=== PATIENT | male | born 1930 | race Caucasian/White ===

== ENCOUNTER 2016-09-18 12:17 | Inpatient (IN) | payer OTHER, BC ==
[~2016-09-18] VITALS: Ht 167.6 cm; Wt 61.9 kg
[~2016-09-18 12:17] MED LIST: ADVAIR DISKU1 INH; ALBUTEROL SUL0.083 % IN; ALTACE2.5 MG PO; ATORVASTATIN CA40 MG PO; AZITHROMYCIN250 MG PO; COREG3.125 MG PO; COUMADIN1 MG PO; COUMADIN2.5 MG PO; COUMADIN3 MG PO; DALIRESP500 MCG PO; EPIPEN 2-PAK0.3 MG; FLUOXETINE HCL10 M1 PO; FUROSEMIDE20 MG PO; KEFLEX500 MG PO; KLOR-CON M1010 MEQ PO; LATANOPROST0.005 % OP; LISINOPRIL10 MG PO; LOTRISONE TOP; LOVENOX40 MG/0.4 SC; MEGAKRILL; METFORMIN HCL1000 MG PO; MIRAPEX0.125 MG PO; MORPHINE SULFAT15 MG PO; MULTIVITAMIN1 TAB PO; NEURONTIN100 MG PO; NEURONTIN300 MG PO; NORCO1 TA1 PO; PROAIR HFA IN; PROBIOTI1 PO; PROTONIX40 MG PO; SPIRIVA18 MCG INH; TYLENOL325 MG PO; VOLTAREN1 % TOP; WELCHOL625 MG PO; [UNRECOGNIZED DRUG - OTHER]; [UNRECOGNIZED DRUG - OTHER] PO
--- NOTE | 2016-09-18 13:11 | DIAGNOSTIC IMAGING REPORT ---
PROCEDURE: XR CHEST 1 VIEW INDICATION: CHEST PAIN TECHNIQUE: Portable AP view 12:54 p.m. COMPARISON: Chest 05/22/2015 and 11/17/2014 FINDINGS: No right upper lobe and right lower lobe infiltrates. Extensive scarring in the left lung base is unchanged. Stable blunting of the left costophrenic angle. Median sternotomy, CABG and valvuloplasty. Heart size and mediastinum are normal. Prominence of the pulmonary arteries. Mild chronic lower thoracic spine compression fractures with moderate degenerative changes. Cholecystectomy. IMPRESSION: 1. New right upper lobe and right lower lobe infiltrates. 2. Extensive pulmonary parenchymal scarring 3. CABG and valvuloplasty
--- NOTE | 2016-09-18 15:21 | ED CLINICAL REPORT ---
Clinical Report - Physicians/Mid Levels [facility] [address] [place] [address] 09/18/2016 12:17 Patient: HIPOLITO BAILEY *This is a preliminary document and is subject to change Time Seen: 12:29; initial patient contact. Arrived- By ambulance. Historian- patient. LABS, X-RAYS, AND EKG Chest X-ray: Patchy infiltrate in the right upper lobe and right lower lobe. Consistent with pneumonia. Views: AP. Technique: good. The X-rays were independently viewed by me and interpreted contemporaneously by me. A comparison with prior films reveals that the findings have worsened. Interpretation time: 14:09. Laboratory Tests: CBC w Diff: (CHARLENE: 09/18/2016 12:55) ( MsgRcvd 09/18/2016 13:04) Final results Test Result Flag Units (Reference) WHITE BLOOD COUNT 8.4 K/uL (4.5-11.5) RED BLOOD COUNT 4.21 L M/uL (4.50-5.90) HEMOGLOBIN 13.5 gm/dL (13.5-17.5) HEMATOCRIT 40.0 L % (41.0-53.0) MEAN CELL VOLUME 95 fL (80-100) MEAN CORPUSCULAR HGB 32 pg (26-34) MEAN CORPUSCULAR HGB CONC 34 g/dL (31-37) RED CELL DISTRIBUTION WIDTH 14.6 % (11.6-14.8) PLATELET COUNT 192 K/uL (150-400) NEUTROPHIL % 69.6 % (50-75) LYMPH % 16.3 L % (25-40) MONO % 6.7 % (3-14) EOSINOPHIL % 6.9 H % (0-4) BASOPHIL % 0.5 % (0-2) PT with INR: (CHARLENE: 09/18/2016 12:55) ( MsgRcvd 09/18/2016 13:13) Final results Test Result Flag Units (Reference) INR 2.1 H (0.8-1.2) Low Intensity Therapy: INR 1.5-2.0 PT range 18.5-23.1Mod.Intensity Therapy: INR 2.0-3.0 PT range 23.1-31.5High Intensity Therapy: INR 2.5-3.5 PT range 27.4-35.5High Intensity Therapy 2: INR 3.0-4.0 PT range 31.5-39.3 APTT 38 H SECONDS (24-34) . PROGRESS AND PROCEDURES Discussed case with patient's primary care provider, (call returned 15:00 Dr. Vila). Reviewed test results and need for additional work-up. Agreed upon decision to admit. Health care provider will see patient in hospital. CLINICAL IMPRESSION Bacterial pneumonia with hypoxemia. Empiric antibiotics given in the ED. Miguelito Valencia Dr.
--- NOTE | 2016-09-18 15:21 | ED CLINICAL REPORT ---
Clinical Report - Physicians/Mid Levels [facility] [address] [place] [address] 09/18/2016 12:17 Patient: HIPOLITO BAILEY *This is a preliminary document and is subject to change Time Seen: 12:29; initial patient contact. Arrived- By ambulance. Historian- patient. LABS, X-RAYS, AND EKG Chest X-ray: Patchy infiltrate in the right upper lobe and right lower lobe. Consistent with pneumonia. Views: AP. Technique: good. The X-rays were independently viewed by me and interpreted contemporaneously by me. A comparison with prior films reveals that the findings have worsened. Interpretation time: 14:09. Laboratory Tests: CBC w Diff: (CHARLENE: 09/18/2016 12:55) ( MsgRcvd 09/18/2016 13:04) Final results Test Result Flag Units (Reference) WHITE BLOOD COUNT 8.4 K/uL (4.5-11.5) RED BLOOD COUNT 4.21 L M/uL (4.50-5.90) HEMOGLOBIN 13.5 gm/dL (13.5-17.5) HEMATOCRIT 40.0 L % (41.0-53.0) MEAN CELL VOLUME 95 fL (80-100) MEAN CORPUSCULAR HGB 32 pg (26-34) MEAN CORPUSCULAR HGB CONC 34 g/dL (31-37) RED CELL DISTRIBUTION WIDTH 14.6 % (11.6-14.8) PLATELET COUNT 192 K/uL (150-400) NEUTROPHIL % 69.6 % (50-75) LYMPH % 16.3 L % (25-40) MONO % 6.7 % (3-14) EOSINOPHIL % 6.9 H % (0-4) BASOPHIL % 0.5 % (0-2) PT with INR: (CHARLENE: 09/18/2016 12:55) ( MsgRcvd 09/18/2016 13:13) Final results Test Result Flag Units (Reference) INR 2.1 H (0.8-1.2) Low Intensity Therapy: INR 1.5-2.0 PT range 18.5-23.1Mod.Intensity Therapy: INR 2.0-3.0 PT range 23.1-31.5High Intensity Therapy: INR 2.5-3.5 PT range 27.4-35.5High Intensity Therapy 2: INR 3.0-4.0 PT range 31.5-39.3 APTT 38 H SECONDS (24-34) . PROGRESS AND PROCEDURES Discussed case with patient's primary care provider, (call returned 15:00 Dr. Vila). Reviewed test results and need for additional work-up. Agreed upon decision to admit. Health care provider will see patient in hospital. CLINICAL IMPRESSION Bacterial pneumonia with hypoxemia. Empiric antibiotics given in the ED. Miguelito Valencia Dr.
--- NOTE | 2016-09-18 15:21 | ED NURSING NOTES ---
Clinical Report - Nurses [facility] [address] [place] [address] 09/18/2016 12:17 Patient: HIPOLITO BAILEY TRIAGE Triage time 1217 PM. Acuity: LEVEL 2. Chief Complaint: CHEST PAIN and DISCOMFORT. Alert. No acute distress. SEPSIS SCREEN: Sepsis Screen. Negative (no infection suspected/documented). ROCIO COMA SCORE: Rocio Coma Scale: 15- eyes open spontaneously (4); best verbal response- oriented x 4 (5); best motor response- obeys commands (6). --12:38 Ade Magallanes R.N. 12:22 09/18/16. BP: 81/53 taken on the left arm, via an automated monitor, while lying. HR: 80. RR: 20. O2 saturation: 89%. O2 started via nasal cannula at 5 liters/minute. Temp: 97.4 F (oral). Pain level now: 10/20. --12:38 Ade Magallanes R.N. Weight: 59.4 kg stated. Height/Length: 66 inches Per Patient. BMI: 21.1. --12:27 Ade Magallanes R.N. Medications Advair Diskus Inhalation 1 puff, 2x a day. Atorvastatin Calcium Oral 40 mg, daily. Coreg Oral 3.125 mg, 2x a day. Coumadin Oral MWF and 2.5mg TTHSS, at bedtime. Daliresp Oral (Tablet 500 mcg) 1 tablet, daily. Diabethiderm ext cream, as needed. EpiPen 2-Henry Injection. Furosemide Oral 20 mg, daily. Gabapentin Oral 100 mg, 1-3 tabs, 3x a day as needed, nerve pain. Latanoprost Ophthalmic 1 drop OU . Lisinopril Oral 5 mg, daily. --12:26 Ade Magallanes R.N. Magnesium Oral 1 cap, 64 mg, 2x a day. Jad krill 30mg. MetFORMIN HCl Oral 1000 mg , 2x a day. Mirapex Oral 0.125 mg, at bedtime. Multivitamin Oral (with vit K 2 tab daily for coumadin up/down). Potassium Oral 10 meq BID. ProAir HFA Inhalation 2 puffs, as needed. Protonix Oral 40 mg, daily. Spiriva HandiHaler Inhalation (Capsule 18 mcg) 1 capsule, daily. Tylenol Oral (Tablet 325 mg) 1 tablet, as needed (every 4 hours). Voltaren Transdermal to feet. WelChol Oral 625 mg, 2 tabs TID. --12:26 Ade Magallanes R.N. The following entry was struck by Ade Magallanes R.N., 13:02 (09/18/16) Reason - other. <<STRICKEN ENTRY-- [place] 5-325 q6hrs prn pain. --12:26 Ade Magallanes R.N. --END STRIKE>> The following entry was struck and corrected by Ade Magallanes R.N., 13:01 (09/18/16) Reason for correction - other(correction). <<STRICKEN ENTRY-- Coumadin Oral 2mg except on thursday. thursday 2.5mg, at bedtime. --12:26 Ade Magallanes R.N. --END STRIKE>> The following entry was struck and corrected by Ade Magallanes R.N., 12:59 (09/18/16) Reason for correction - other(correction). <<STRICKEN ENTRY-- Lisinopril Oral 20 mg, daily. --12:26 Ade Magallanes R.N. --END STRIKE>> The following entry was struck by Ade Magallanes R.N., 12:58 (09/18/16) Reason - other. <<STRICKEN ENTRY-- morphine 15 mg 1-2 tabs , 3x a day (upt to 3 times a day prn). --12:26 Ade Magallanes R.N. --END STRIKE>>. Medication/allergy information source: the patient and patient's imported external medical record. --12:38 Ade Magallanes R.N. Allergies No Known Drug Allergy. --12:26 Ade Magallanes R.N. History Arrived by EMS. Historian: patient. Primary physician (DR. VILA). ( Pt brought over by EMS from Dr. Vila office with CP and Hypoxia, pt states initiated last week but states that CP comes and goes, it ususally goes away when I put my O2 up.). The patient has had difficulty breathing. No sweating episodes, nausea, vomiting, fever or cough. Treatment [employer]: None. PAST MEDICAL HX: Immunizations: up-to-date. SOCIAL HX: Never smoker. No alcohol use or drug use. No infectious disease exposure. ABUSE ASSESSMENT: No report of abuse. SELF HARM ASSESSMENT: A self harm assessment was performed. The patient answered "no" to the question "Do you have thoughts of harming or killing yourself?" and "Have you recently had thoughts about harming or killing others?". FALL RISK ASSESSMENT: Fall risk assessment completed. No fall risk identified. NUTRITIONAL RISK ASSESSMENT: The nutritional risk assessment revealed no deficiencies. FUNCTIONAL ASSESSMENT: Functional assessment: no impairments noted. LEARNING NEEDS ASSESSMENT: The learning needs assessment revealed no barriers. SKIN INTEGRITY ASSESSMENT: Skin integrity risk assessment completed. No skin integrity risk identified. --12:38 Ade Magallanes R.N. PROBLEMS: Post-Op Complications. Peripheral Neuropathy. Bradycardia. Carotid bruit. Asbestosis. Obstructive Sleep Apnea. Somnolence. Hyperlipidemia. Aortic valve disorder. Cardiomyopathy. Back Pain. Diabetes Mellitus Type 2. Neuropathy. Syncope. Actinic keratosis. Inguinal hernia. Shoulder pain. Hip pain. Lung Disease. Hemoptysis. Bronchitis. Chest Wall Pain. Hypercholesterolemia. Tetanus Status. Contusion. Near Syncope. Pneumonia. Vomiting. Abdominal Pain. Gastroesophageal Reflux. Hematoma. Tonsillitis. Lipids abnormal. COPD - Chronic Obstructive Pulmonary Disease. Cancer. Myocardial Infarction. Vertigo. Chest Pain. Heart Disease. Sleep Apnea. Hypertension. Gastroesophageal Reflux Disease. Immunizations. --12:26 Ade Magallanes R.N. Diabetes Mellitus [RuleOut]. Lower Extremity Pain [RuleOut]. --12:26 Ade Magallanes R.N. ADDITIONAL SURGERIES: Aortic Valve Replacement. Bowel Surgery. Coronary Angioplasty. Coronary Artery Bypass Graft. Hernia Repair. Prostatectomy. Valve Replacement. --12:26 Ade Magallanes R.N. Interventions ID band on patient. --12:38 Ade Magallanes R.N. PHYSICAL ASSESSMENT To room via stretcher. GENERAL / NEURO / PSYCH: Alert. Oriented X 4. Appears in no acute distress. HEENT: Mucous membranes are pink. RESPIRATORY: Respirations not labored. Decreased breath sounds in the left lung base posteriorly. Breath sounds within normal limits. CVS: Cardiac rhythm: normal sinus rhythm; occasional PVCs. Pulses within normal limits. Capillary refill is greater than 2 seconds. GI / : Abdomen soft and nontender. EXTREMITIES: No lower extremity edema. SKIN: Skin is warm. Skin is cool. --12:40 Ade Magallanes R.N. NURSING PROGRESS NOTES Cardiac rhythm: normal sinus rhythm. The initial plan of care for this patient has been created This plan of care was discussed with the patient. Oxygen administered by nasal cannula at 4 liters. cardiac monitor, pulse oximeter and NIBP monitor placed on patient. Patient gowned and gowned. Warming measures: blanket applied. Reassurance given. Two patient identifiers checked. Call light placed in reach. Side rails up x 1. Bed placed in lowest position. Brakes of bed on. --12:44 Ade Magallanes R.N. 12:42 09/18/16. BP: 92/57. HR: 68. RR: 16. O2 saturation: 92%. O2 started via nasal cannula at 4 liters/minute. Pain level now: 09/19. --12:44 Ade Magallanes R.N. 12:21 09/18/2016 Site #1 accessed indwelling PIV line in the right antecubital space using a 20g needle (placed by EMS). --12:46 Ade Magallanes R.N. --12:57 Ade Magallanes R.N. 13:00 09/18/16. BP: 106/55 (small adult cuff) taken on the left arm, via an automated monitor, while sitting. HR: 59. RR: 24. O2 saturation: 95%. O2 started via nasal cannula at 4 liters/minute. Pain level now: 08/22. --13:26 Ade Magallanes R.N. Cardiac rhythm: normal sinus rhythm; 1st degree AV block; occasional unifocal PVCs. cardiac monitor, pulse oximeter and NIBP monitor placed on patient. Reassurance given. The patient is calm and sleeping. Overall patient status is improved- he states feels better. RESPIRATORY: Denies difficulty breathing. Call light placed in reach. Side rails up x 2. --13:26 Ade Magallanes R.N. Cardiac rhythm: normal sinus rhythm. cardiac monitor, pulse oximeter and NIBP monitor placed on patient. Reassurance given. The patient is calm and sleeping. Overall patient status is improved- he states feels better. RESPIRATORY: Denies difficulty breathing. CVS: Denies chest pain. SKIN: Skin is warm. Skin color within normal limits. Patient identifiers checked. --14:28 Ade Magallanes R.N. 14:00 09/18/16. BP: 112/67 (small adult cuff) taken on the left arm, via an automated monitor, while sitting. HR: 74. RR: 23. O2 saturation: 94%. Pain level now: 08/22. --14:28 Ade Magallanes R.N. 15:29 09/18/2016 Started 500 mg of Levofloxacin IVPB in bag #1 100 mL; at 500 mg/hr over 1 hour(s) via site #1 via IV pump. Allergies verified and confirmed 5 rights. IV patency established. IV site checked: no pain, redness, or swelling. IV flushed thoroughly pre- and post-medication administration. --15:29 Ade Magallanes R.N. Cardiac rhythm: normal sinus rhythm. Oxygen administered by nasal cannula at 4 liters. cardiac monitor, pulse oximeter and NIBP monitor placed on patient. Reassurance given. The patient is calm. Overall patient status is improved- he states feels better. RESPIRATORY: Denies difficulty breathing. CVS: Denies chest pain. Two patient identifiers checked. Call light placed in reach. Side rails up x 1. --15:32 Ade Magallanes R.N. 15:00 09/18/16. BP: 102/54. HR: 58. RR: 21. O2 saturation: 100%. O2 started via nasal cannula at 4 liters/minute. Temp: 98.2 F (oral). Pain level now: 010. --15:32 Ade Magallanes R.N. 15:55 09/18/16. BP: 102/60. HR: 71. RR: 20. O2 saturation: 94%. O2 started via nasal cannula at 4 liters/minute. Temp: 97.4 F (oral). Pain level now: 0. --15:57 Ade Magallanes R.N. Cardiac rhythm: normal sinus rhythm; 1st degree AV block. cardiac monitor, pulse oximeter and NIBP monitor placed on patient. Reassurance given. Call light placed in reach. Side rails up x 1. Bed placed in lowest position. Brakes of bed on. --15:57 Ade Magallanes R.N. 16:22 09/18/2016 Levofloxacin IVPB Discontinued: bag #1 completed upon admission. Total amount infused: 50 mL. IV patency established. IV site checked: no pain, redness, or swelling. IV flushed thoroughly. --16:37 Ade Magallanes R.N. 16:37 09/18/2016 Magnesium Sulfate (Magnesium Sulfate in D5W) IVP 2 gm given over 2 hour(s) via site #1. Allergies verified and confirmed 5 rights. IV patency established. IV site checked: no pain, redness, or swelling. IV flushed thoroughly pre- and post-medication administration. IVP given by RN. --16:37 Ade Magallanes R.N. 17:35 09/18/2016 Magnesium Sulfate IVP Response: no adverse reaction (transfered to CCU). --17:50 Ade Magallanes R.N. late entry - 16:00 PM. Cardiac rhythm: sinus bradycardia; 1st degree AV block. cardiac monitor, pulse oximeter and NIBP monitor placed on patient. Patient waiting for admit orders. --17:52 Ade Magallanes R.N. 16:01 09/18/16. BP: 115/52. HR: 59. RR: 21. O2 saturation: 95%. O2 started via nasal cannula at 4 liters/minute. Temp: 98.1 F (oral). Pain level now: 07/22. --17:52 Ade Magallanes R.N. late entry - 17:00 PM. Cardiac rhythm: sinus bradycardia; 1st degree AV block. Oxygen administered by nasal cannula at 4 liters. cardiac monitor, pulse oximeter and NIBP monitor placed on patient. Reassurance given. Reassessment after medication administered. He is calm and has had no adverse reaction. Overall patient status is improved- he states feels better. RESPIRATORY: Denies difficulty breathing. CVS: Denies chest pain. --17:53 Ade Magallanes R.N. 17:00 09/18/16. BP: 107/52 (small adult cuff) taken on the left arm, via an automated monitor, while lying. HR: 59 (regular). RR: 21. O2 saturation: 95% on nasal cannula at 4 liters/minute. Temp: 94.7 F (oral). Pain level now: 07/22. --17:53 Ade Magallanes R.N. DISPOSITION / DISCHARGE 17:29 09/18/2016 Site #1 reassessed; patent, infusing well and no signs of infection or infiltration. Good blood return present. --17:54 Ade Magallanes R.N. Cardiac rhythm: normal sinus rhythm; 1st degree AV block. Departure time: 1735 PM. The goals identified in the patient's plan of care were met. Admitted to the Critical Care Unit. Report was given to a nurse via a phone call. Report included patient's care, treatment, medications, reviewed medication reconcilliation, and condition (including any recent changes or anticipated changes). All questions were answered. Report was acknowledged and care was transferred. (NAZANIN [place]). Spouse notified of admission. ( Pt transferred to CCU safely, VSS, IV site intact. Mag infusing as ordered). Patient's personal items include: shirt, pants, coat, socks, shoes, hat, upper denture and lower denture and jewelry; items were placed in belongings bag, given to the patient and transported with the patient. --17:57 Ade Magallanes R.N. 17:30 09/18/16. BP: 115/52 (small adult cuff) taken on the left arm, while lying. HR: 59. RR: 21. O2 saturation: 95% on nasal cannula at 4 liters/minute. Temp: 97.4 F (oral). Pain level now: 07/22. --17:57 Ade Magallanes R.N. Locked/Released at 09/18/2016 17:58 by Ade Magallanes R.N.
--- NOTE | 2016-09-18 15:22 | ED ORDER SUMMARY ---
..... Patient: HIPOLITO BAILEY OrderSheet [facility] VisitID: [id number] [place] [address] 86y, M Registration Date/Time: 09/18/2016 ORDER SHEET Weight: 59.4 kg (stated) Allergies: No Known Drug Allergy GENERAL ORDERS: Fuel Injection Servicer (Continuous) (12:45 09/18/2016 EHassan R.N. per protocol) (12:53 EHassan R.N.) Chest 1V Urgent (12:45 09/18/2016 EHassan R.N. per protocol) (Ack 12:50 TBergley) (12:53 EHassan R.N.) Cardiac Panel Stat (12:46 09/18/2016 EHassan R.N. per protocol) (Ack 12:50 TBergley) (12:53 EHassan R.N.) Oxygen (2 L/min) (NC) (12:46 09/18/2016 EHassan R.N. per protocol) (12:53 EHassan R.N.) Pulse oximeter (12:46 09/18/2016 EHassan R.N. per protocol) (12:53 EHassan R.N.) EKG - ER Stat (12:46 09/18/2016 EHassan R.N. per protocol) (12:47 LTapper) Vitals (12:46 09/18/2016 EHassan R.N. per protocol) (Ack 12:50 TBergley) (12:53 EHassan R.N.) Cardiac Panel Stat (12:54 09/18/2016 EHassan R.N. per protocol) (12:55 EHassan R.N.) PT with INR Urgent (12:54 09/18/2016 EHassan R.N. per protocol) (12:55 EHassan R.N.) PTT Urgent (12:54 09/18/2016 EHassan R.N. per protocol) (12:55 EHassan R.N.) CMP Urgent (12:54 09/18/2016 EHassan R.N. per protocol) (12:55 EHassan R.N.) CBC w Diff Urgent (12:54 09/18/2016 EHassan R.N. per protocol) (12:55 EHassan R.N.) Blood Culture (No) (N/A) Urgent (14:07 09/18/2016 Liz Ro) (Ack 14:34 LTapper) (14:34 EHassan R.N.) Lactic Acid for Sepsis Protocol Urgent (14:07 09/18/2016 Liz Ro) (Ack 14:34 LTapper) (14:34 EHassan R.N.) PCT (Procalcitonin) Urgent (14:07 09/18/2016 Liz Ro) (Ack 14:34 LTapper) (14:34 EHassan R.N.) MEDICATION ORDERS: IV FLUIDS: IV Saline Lock (12:46 09/18/2016 EHassan R.N. per protocol) (12:46 EHassan R.N.) Levofloxacin IV 500 mg/100mL (NOW) (15:20 09/18/2016 Liz Ro) Magnesium Sulfate IV 2 gm/50mL (HIGH ALERT MEDICATION, NOW, over 2 hours) (15:20 09/18/2016 Liz Ro) ORDER SHEET NOTES: This document has not been locked and should not be saved in the medical record.
--- NOTE | 2016-09-18 15:22 | ED ORDER SUMMARY ---
..... Patient: HIPOLITO BAILEY OrderSheet [facility] VisitID: [id number] [place] [address] 86y, M Registration Date/Time: 09/18/2016 ORDER SHEET Weight: 59.4 kg (stated) Allergies: No Known Drug Allergy GENERAL ORDERS: Clicking Machine Operator (Continuous) (12:45 09/18/2016 EHassan R.N. per protocol) (12:53 EHassan R.N.) Chest 1V Urgent (12:45 09/18/2016 EHassan R.N. per protocol) (Ack 12:50 TBergley) (12:53 EHassan R.N.) Cardiac Panel Stat (12:46 09/18/2016 EHassan R.N. per protocol) (Ack 12:50 TBergley) (12:53 EHassan R.N.) Oxygen (2 L/min) (NC) (12:46 09/18/2016 EHassan R.N. per protocol) (12:53 EHassan R.N.) Pulse oximeter (12:46 09/18/2016 EHassan R.N. per protocol) (12:53 EHassan R.N.) EKG - ER Stat (12:46 09/18/2016 EHassan R.N. per protocol) (12:47 LTapper) Vitals (12:46 09/18/2016 EHassan R.N. per protocol) (Ack 12:50 TBergley) (12:53 EHassan R.N.) Cardiac Panel Stat (12:54 09/18/2016 EHassan R.N. per protocol) (12:55 EHassan R.N.) PT with INR Urgent (12:54 09/18/2016 EHassan R.N. per protocol) (12:55 EHassan R.N.) PTT Urgent (12:54 09/18/2016 EHassan R.N. per protocol) (12:55 EHassan R.N.) CMP Urgent (12:54 09/18/2016 EHassan R.N. per protocol) (12:55 EHassan R.N.) CBC w Diff Urgent (12:54 09/18/2016 EHassan R.N. per protocol) (12:55 EHassan R.N.) Blood Culture (No) (N/A) Urgent (14:07 09/18/2016 Liz Ro) (Ack 14:34 LTapper) (14:34 EHassan R.N.) Lactic Acid for Sepsis Protocol Urgent (14:07 09/18/2016 Liz Ro) (Ack 14:34 LTapper) (14:34 EHassan R.N.) PCT (Procalcitonin) Urgent (14:07 09/18/2016 Liz Ro) (Ack 14:34 LTapper) (14:34 EHassan R.N.) MEDICATION ORDERS: IV FLUIDS: IV Saline Lock (12:46 09/18/2016 EHassan R.N. per protocol) (12:46 EHassan R.N.) Levofloxacin IV 500 mg/100mL (NOW) (15:20 09/18/2016 Liz Ro) Magnesium Sulfate IV 2 gm/50mL (HIGH ALERT MEDICATION, NOW, over 2 hours) (15:20 09/18/2016 Liz Ro) ORDER SHEET NOTES: This document has not been locked and should not be saved in the medical record.
[2016-09-18 17:47] VITALS: BP 114/49
--- NOTE | 2016-09-18 18:45 | ED DISCHARGE INSTRUCTIONS ---
Patient: HIPOLITO BAILEY General Instructions [facility] VisitID: [id number] [address] [place] [address] 86y, M Registration Date/Time: 09/18/2016 Moderate hypomagnesemia. Bacterial pneumonia with hypoxemia. Empiric antibiotics given in the ED. INSTRUCTIONS Follow-up: Blood pressure screening was not performed during this visit because the patient has an active diagnosis of hypertension. The patient was admitted and blood pressure will be managed during the admission. (Electronically signed by Miguelito Valencia Dr. 09/18/2016 18:45)
--- NOTE | 2016-09-18 18:45 | ED DISCHARGE INSTRUCTIONS ---
Patient: HIPOLITO BAILEY General Instructions [facility] VisitID: [id number] [address] [place] [place] [place] [address] 86y, M Registration Date/Time: 09/18/2016 Moderate hypomagnesemia. Bacterial pneumonia with hypoxemia. Empiric antibiotics given in the ED. INSTRUCTIONS Follow-up: Blood pressure screening was not performed during this visit because the patient has an active diagnosis of hypertension. The patient was admitted and blood pressure will be managed during the admission. (Electronically signed by Miguelito Valencia Dr. 09/18/2016 18:45)
--- NOTE | 2016-09-18 18:45 | ED MED RECONCILIATION SUMMARY ---
Patient: HIPOLITO BAILEY Medication Reconciliation Report [facility] VisitID: [id number] [place] [address] 86y, M Registration Date/Time: 09/18/2016 Weight: 59.4 kg Height/Length: 66 in. BMI: 21.1 ALLERGIES: No Known Drug Allergy The patient's Home Medications are listed below: THE FOLLOWING MEDICATIONS NEED TO BE RECONCILED: Advair Diskus Inhalation 1 puff, 2x a day Atorvastatin Calcium Oral 40 mg, daily Coreg Oral 3.125 mg, 2x a day Coumadin Oral MWF and 2.5mg TTHSS, at bedtime Daliresp Oral (500 mcg) 1 tablet, daily Diabethiderm ext cream EpiPen 2-Henry Injection Furosemide Oral 20 mg, daily Gabapentin Oral 100 mg, 1-3 tabs, 3x a day, nerve pain Latanoprost Ophthalmic 1 drop OU Lisinopril Oral 5 mg, daily Magnesium Oral 1 cap, 64 mg, 2x a day Jad krill 30mg MetFORMIN HCl Oral 1000 mg , 2x a day Mirapex Oral 0.125 mg, at bedtime Multivitamin Oral, with vit K 2 tab daily for coumadin up/down Potassium Oral 10 meq BID ProAir HFA Inhalation 2 puffs Protonix Oral 40 mg, daily Spiriva HandiHaler Inhalation (18 mcg) 1 capsule, daily Tylenol Oral (325 mg) 1 tablet, every 4 hours Voltaren Transdermal to feet WelChol Oral 625 mg, 2 tabs TID The source(s) of the original Home Medication information: patient patient's imported external medical record The following Medications were given to the patient in the Emergency Department: Levofloxacin [IVPB] IVPB bolus 0, then 500 mg 500 mg/hr, administered: 09/18/2016 3:29:00 PM Magnesium Sulfate [IVP] IVP 2 gm, administered: 09/18/2016 4:37:00 PM The following Medications were prescribed to the patient: None.
--- NOTE | 2016-09-18 18:45 | ED MAR SUMMARY ---
..... Medication Administration Record [facility] [address] [place] [address] Patient: HIPOLITO BAILEY Visit ID: [id number] 86y, M Weight: 59.4 kg Height/Length: 66 in BMI: 21.1 ALLERGIES: No Known Drug Allergy Start 15:29 09/18/2016 Ade Magallanes R.N., Stop 16:22 09/18/2016 Ade Magallanes R.N. Medication Administered: LEVOFLOXACIN [IVPB], Dose: 500 mg IVPB over 1 hour(s), Rate: 500 mg/hr, Dispensed: 100 mL bag, Site: #1 right AC. Medication Ordered: Levofloxacin IV 500 mg/100mL (NOW). Given 16:37 09/18/2016 Ade Magallanes R.N. Medication Administered: MAGNESIUM SULFATE [IVP] (MAGNESIUM SULFATE IN D5W), Dose: 2 gm IVP over 2 hour(s), Site: #1 right AC. Medication Ordered: Magnesium Sulfate IV 2 gm/50mL (HIGH ALERT MEDICATION, NOW, over 2 hours).
--- NOTE | 2016-09-18 18:45 | ED MED RECONCILIATION SUMMARY ---
Patient: HIPOLITO BAILEY Medication Reconciliation Report [facility] VisitID: [id number] [place] [address] 86y, M Registration Date/Time: 09/18/2016 Weight: 59.4 kg Height/Length: 66 in. BMI: 21.1 ALLERGIES: No Known Drug Allergy The patient's Home Medications are listed below: THE FOLLOWING MEDICATIONS NEED TO BE RECONCILED: Advair Diskus Inhalation 1 puff, 2x a day Atorvastatin Calcium Oral 40 mg, daily Coreg Oral 3.125 mg, 2x a day Coumadin Oral MWF and 2.5mg TTHSS, at bedtime Daliresp Oral (500 mcg) 1 tablet, daily Diabethiderm ext cream EpiPen 2-Henry Injection Furosemide Oral 20 mg, daily Gabapentin Oral 100 mg, 1-3 tabs, 3x a day, nerve pain Latanoprost Ophthalmic 1 drop OU Lisinopril Oral 5 mg, daily Magnesium Oral 1 cap, 64 mg, 2x a day Jad krill 30mg MetFORMIN HCl Oral 1000 mg , 2x a day Mirapex Oral 0.125 mg, at bedtime Multivitamin Oral, with vit K 2 tab daily for coumadin up/down Potassium Oral 10 meq BID ProAir HFA Inhalation 2 puffs Protonix Oral 40 mg, daily Spiriva HandiHaler Inhalation (18 mcg) 1 capsule, daily Tylenol Oral (325 mg) 1 tablet, every 4 hours Voltaren Transdermal to feet WelChol Oral 625 mg, 2 tabs TID The source(s) of the original Home Medication information: patient patient's imported external medical record The following Medications were given to the patient in the Emergency Department: Levofloxacin [IVPB] IVPB bolus 0, then 500 mg 500 mg/hr, administered: 09/18/2016 3:29:00 PM Magnesium Sulfate [IVP] IVP 2 gm, administered: 09/18/2016 4:37:00 PM The following Medications were prescribed to the patient: None.
--- NOTE | 2016-09-18 18:45 | ED MAR SUMMARY ---
..... Medication Administration Record [facility] [address] [place] [address] Patient: HIPOLITO BAILEY Visit ID: [id number] 86y, M Weight: 59.4 kg Height/Length: 66 in BMI: 21.1 ALLERGIES: No Known Drug Allergy Start 15:29 09/18/2016 Ade Magallanes R.N., Stop 16:22 09/18/2016 Ade Magallanes R.N. Medication Administered: LEVOFLOXACIN [IVPB], Dose: 500 mg IVPB over 1 hour(s), Rate: 500 mg/hr, Dispensed: 100 mL bag, Site: #1 right AC. Medication Ordered: Levofloxacin IV 500 mg/100mL (NOW). Given 16:37 09/18/2016 Ade Magallanes R.N. Medication Administered: MAGNESIUM SULFATE [IVP] (MAGNESIUM SULFATE IN D5W), Dose: 2 gm IVP over 2 hour(s), Site: #1 right AC. Medication Ordered: Magnesium Sulfate IV 2 gm/50mL (HIGH ALERT MEDICATION, NOW, over 2 hours).
--- NOTE | 2016-09-18 19:24 | HISTORY AND PHYSICAL ---
ADMITTED: 09/18/2016 CHIEF COMPLAINT: 1. Shortness of breath 2. Weakness 3. Dizziness 4. Chest pressure HISTORY OF PRESENT ILLNESS: The patient is an 86-year-old male who presented to my clinic today with some shortness of breath and chest discomfort. He states he was having chest discomfort about 6/10 in his left upper chest, feeling like there is a big pressure and something sitting on his chest. He states that he has also been having some increased shortness of breath, worse over the last few days. If he does any activity he gets that pressure and it is currently present as 6/10. Denies sweats with this. Denies any choking or fever. He has got some chronic issues of a cough and weakness as well. MEDICAL/SURGICAL HISTORY: Past medical history: He has had hypoxemia, pneumonia, rib pain, neck pain, squamous cell carcinoma, recurrent inguinal hernias, shoulder pain, abdominal pain, hypertension, depression, inguinal hernia, diabetes, aortic valve replacement, Coumadin therapy with poor control, consistently up-and-down, cardiomyopathy, somnolence, obstructive sleep apnea, restrictive lung disease, heart failure, bradycardia. Past surgical history: Hernia repair 2015, CABG and redo 1980 in 1980 and 2008, aortic valve replacement 2008, bowel resection related to embolus , cholecystectomy and appendectomy. MEDICATIONS: 1. Fluoxetine 10 mg p.o. daily. 2. Gabapentin 300 mg 1-2 p.o. t.i.d. p.r.n. nerve pain. 3. Voltaren gel 2 g to bottom of feet p.r.n. for pain. 4. Mirapex 0.25 mg 1-2 at bedtime for restless leg. 5. Advair Diskus 250/50 one click b.i.d. 6. Welchol 650 mg 2 p.o. t.i.d. 7. Metformin 1000 mg b.i.d. 8. Daliresp 500 mg daily. 9. Spiriva 18 mcg daily. 10. ProAir 2 puffs q.4 hours p.r.n. wheezing. 11. KCl 10 mEq p.o. b.i.d. 12. Coreg 3.125 mg 1 p.o. b.i.d. 13. Protonix 40 mg p.o. daily. 14. Furosemide 20 mg p.o. daily. 15. Coumadin 2.5 mg daily. 16. Atorvastatin 40 mg p.o. daily. 17. Magnesium capsule 264 mg 1 p.o. b.i.d. 18. Lisinopril 5 mg p.o. daily. ALLERGIES: 1. NONE KNOWN. SOCIAL HISTORY: He has got a [id number] smoking history, quitting in 1980. He is retired from the [employer]. , 2 children, 2 grandchildren, both girls. FAMILY HISTORY: Father of heart disease at age 66 and had diabetes. Mother of a heart attack, unknown age. REVIEW OF SYSTEMS: As noted above with the cough, weakness, shortness of breath, and chest pressure. PHYSICAL EXAMINATION: GENERAL: He is an alert male who appears to be having some difficulty with breathing and shortness of breath. VITAL SIGNS: Blood pressure of 114/49, temperature 98.1, heart rate of 61, respirations 16, saturating 94% on 4 L. HEENT: Extraocular movements intact. Pupils equal, round, reactive to light. Oropharynx clear with moist mucous membranes. NECK: Supple without lymphadenopathy. No JVD or bruits. LUNGS: Crackles at the base, right worse than left. He wears O2 nasal cannula. HEART: Regular rate and rhythm with a 3/6 right upper sternal border murmur. ABDOMEN: Soft. It is nontender. No guarding, no masses. EXTREMITIES: He has got no edema on his legs. NEUROLOGIC: He is alert and oriented x3. SKIN: Warm, dry and intact. LYMPHATIC: He has got no significant lymphadenopathy. PSYCHIATRIC: He has got normal mood and affect. LAB/IMAGING: Laboratories: White count of 8.4, hematocrit 40.0, platelets of 192,000. INR of 2.1. Comprehensive metabolic panel: Glucose 125, BUN of 16, creatinine 1.1, sodium 142, potassium 4.7, chloride of 106, HCO3 28, magnesium 1.4, calcium 8.4, total protein 6.8. Albumin 2.9, bili 0.6, alk phos 74, AST of 49, ALT of 44. CPK of 62. Troponin I less than 0.05. Calcitonin level of less than 0.5. Lactic acid is 1.4. Chest x-ray: Shows new right upper lobe and right lower lobe infiltrates, extensive pulmonary parenchymal scarring, CABG and valvuloplasty. EKG: Shows a widened QRS and a sinus rhythm that is without acute ST-T-wave changes. IMPRESSION: 1. This is an 86-year-old male who presented to my office and then sent to the emergency department with shortness of breath, weakness, hypoxia and his workup has shown a right upper and lower lobe infiltrates on chest x-ray. PLAN: We will treat him with antibiotics. We will also treat him with his home medications and inhalers. Anticipate the patient will take at least a couple days for improvement with this weakness and then anticipate his discharge will be to home , possibly need for long-term facility if continues with weakness, though he was able to walk into the clinic today. He also will also be ruled out for heart attack in the meantime as needed, presented with chest discomfort, likely related to his hypoxemia and his pneumonia. CODE STATUS: DO NOT RESUSCITATE/DO NOT INTUBATE.
[2016-09-18 22:24] VITALS: BP 109/59
[2016-09-19 03:22] VITALS: BP 102/53
[2016-09-19 06:48] VITALS: BP 124/60
--- NOTE | 2016-09-19 07:22 | Progress Note ---
Subjective General 86 y.o male with hx of copd, aortic valve replacement on coumadin and 4L O2 chronic admitted for pneumonia and cp, r/o [place]. Has been feeling better this am. No longer with cp. Starting to feel a little better. Physical Exam Vital Signs / I&Os Vital Signs Date Time Temp Pulse Resp B/P Pulse O2 O2 Flow FiO2 Ox Delivery Rate 09/19 0648 98.6 75 25 124/60 91 Nasal 5.0 Cannula 09/19 0604 5.0 09/19 0322 98.6 76 20 102/53 93 Nasal 5.0 Cannula 09/18 2224 98.2 67 27 109/59 91 Nasal 4.0 Cannula 09/18 2124 83 09/18 1945 4.0 09/18 1815 Nasal 4.0 Cannula 09/18 1747 98.1 61 16 114/49 94 Nasal 4.0 Cannula I&O 09/19 0000 09/18 1600 09/18 0800 Intake Total 120 Output Total 826 Balance -706 General Appearance Alert, Cooperative, talkative in full sentences Lungs coarse BS bilaterall with soft rhonchi and non focal crackles. Cardiovascular Regular rate and rhythm, soft click Abdomen Soft, No tenderness Extremities No edema LAB Results Laboratory Tests 09/19 09/18 09/18 09/18 09/18 0440 2351 1646 1646 1600 Chemistry Plasma Sodium (136 - 145 mmol/L) 141 Plasma Potassium (3.5 - 5.1 mmol/L) 4.1 Plasma Chloride (98 - 107 mmol/L) 106 CO2 (Enzymatic) (21 - 32 mmol/L) 27 BUN (7 - 18 mg/dL) 17 Creatinine (0.6 - 1.3 mg/dL) 1.3 Est GFR ( Amer) (mL/min) >60 Est GFR (Non-Af Amer) (mL/min) 55.37 Glucose (70 - 110 mg/dL) 99 Lactic Acid Cancelled Plasma Calcium (8.5 - 10.1 mg/dL) 8.2 Troponin (0.00 - 1.5 ng/mL) 0.05 <0.05 Procalcitonin Cancelled Coagulation INR (0.8 - 1.2) 1.9 Hematology WBC (4.5 - 11.5 K/uL) 7.2 RBC (4.50 - 5.90 M/uL) 4.09 Hgb (13.5 - 17.5 gm/dL) 13.1 Hct (41.0 - 53.0 %) 38.6 MCV (80 - 100 fL) 94 MCH (26 - 34 pg) 32 RDW (11.6 - 14.8 %) 14.4 Neut % (Auto) (50 - 75 %) 65.3 Lymph % (Auto) (25 - 40 %) 17.5 [place] % (Auto) (3 - 14 %) 9.0 Eos % (Auto) (0 - 4 %) 6.9 Baso % (Auto) (0 - 2 %) 1.3 Plt Count, EDTA (150 - 400 K/uL) 126 PUBS MCHC (31 - 37 g/dL) 34 09/18 09/18 09/18 09/18 09/18 1430 1430 1255 1254 1246 Chemistry Plasma Sodium (136 - 145 mmol/L) 142 Cancelled Cancelled Plasma Potassium (3.5 - 5.1 mmol/L) 4.7 Cancelled Cancelled Plasma Chloride (98 - 107 mmol/L) 106 Cancelled Cancelled CO2 (Enzymatic) (21 - 32 mmol/L) 28 Cancelled Cancelled BUN (7 - 18 mg/dL) 16 Cancelled Cancelled Creatinine (0.6 - 1.3 mg/dL) 1.1 Cancelled Cancelled Est GFR ( Amer) (mL/min) >60 Cancelled Cancelled Est GFR (Non-Af Amer) (mL/min) >60 Cancelled Cancelled Glucose (70 - 110 mg/dL) 125 Cancelled Cancelled Lactic Acid (0.4 - 2.0 mmol/L) 1.4 Plasma Calcium (8.5 - 10.1 mg/dL) 8.4 Cancelled Cancelled Plasma Magnesium (1.8 - 2.4 mg/dL) 1.4 Cancelled Total Bilirubin (0.0 - 1.0 mg/dL) 0.6 Cancelled Cancelled AST (15 - 37 U/L) 49 Cancelled Cancelled ALT (12 - 78 U/L) 44 Cancelled Cancelled Alkaline Phosphatase (46 - 116 U/L) 74 Cancelled Cancelled Creatine Kinase (24 - 260 U/L) 62 Cancelled Troponin (0.00 - 1.5 ng/mL) <0.05 Cancelled Total Protein (6.4 - 8.2 g/dL) 6.8 Cancelled Cancelled Albumin (3.3 - 5.0 g/dL) 2.9 Cancelled Cancelled Procalcitonin (0 - 0.5 ng/mL) <0.5 Coagulation INR (0.8 - 1.2) 2.1 APTT (24 - 34 SECONDS) 38 Hematology WBC (4.5 - 11.5 K/uL) 8.4 Cancelled RBC (4.50 - 5.90 M/uL) 4.21 Cancelled Hgb (13.5 - 17.5 gm/dL) 13.5 Cancelled Hct (41.0 - 53.0 %) 40.0 Cancelled MCV (80 - 100 fL) 95 Cancelled MCH (26 - 34 pg) 32 Cancelled RDW (11.6 - 14.8 %) 14.6 Cancelled Neut % (Auto) (50 - 75 %) 69.6 Lymph % (Auto) (25 - 40 %) 16.3 [place] % (Auto) (3 - 14 %) 6.7 Eos % (Auto) (0 - 4 %) 6.9 Baso % (Auto) (0 - 2 %) 0.5 Plt Count, EDTA (150 - 400 K/uL) 192 Cancelled PUBS MCHC (31 - 37 g/dL) 34 Cancelled Microbiology Date/Time Procedure - Status Source Growth 09/18 1752 MRSA Screen - RECD NASAL 09/18 1646 Blood Culture - CAN BLOOD Cancelled: DUPLICATE ORDER, T-SYSTEM ISSUE 09/18 1646 Blood Culture - CAN BLOOD Cancelled: DUPLICATE ORDER, T-SYSTEM ISSUE 09/18 1440 Blood Culture - RECD BLOOD 09/18 1430 Blood Culture - RECD BLOOD Assessment and Plan Problem List 1. Pneumonia Plan Is being treated with levoquin. Watching on INR closely on coumadin. 2. Diabetes Plan Has hx of mild DM generally not needing to have insulin 3. Aortic valve replaced Plan Has AVR on coumadin and up /down generally out of range but not a candidate for xarelto as AVR 4. Hypoxia Plan Chronic O2 will continue.
[2016-09-19 11:07] VITALS: BP 139/83
[2016-09-19 14:17] VITALS: BP 104/53
[2016-09-19 18:14] VITALS: BP 91/59
[2016-09-19 22:24] VITALS: BP 97/61
[2016-09-20 02:15] VITALS: BP 128/71
[2016-09-20 07:01] VITALS: BP 143/76
[2016-09-20 10:44] VITALS: BP 92/42
--- NOTE | 2016-09-20 11:15 | Progress Note ---
Subjective General Feeling improved today. Still SOB with weakness. No chest pain. No diarrhea/ constipation. No nausea/vomiting. No dysuria. Physical Exam Vital Signs / I&Os Vital Signs Date Time Temp Pulse Resp B/P Pulse O2 O2 Flow FiO2 Ox Delivery Rate 09/20 1044 36.6 69 20 92/42 90 Nasal 4.0 Cannula 09/20 0845 4.0 09/20 0844 82 09/20 0701 36.9 64 20 143/76 91 Nasal 4.0 Cannula 09/20 0215 36.6 77 21 128/71 88 Nasal 4.0 Cannula 09/19 2224 37.1 70 21 97/61 91 Nasal 4.0 Cannula 09/19 2010 Nasal 4.0 Cannula 09/19 1918 4.0 09/19 1814 36.5 68 21 91/59 97 Nasal 4.0 Cannula 09/19 1712 73 09/19 1609 4.0 09/19 1417 36.6 74 20 104/53 92 Nasal 4.0 Cannula 09/19 1224 4.0 I&O 09/20 0000 09/19 1600 09/19 0800 Intake Total 480 570 450 Output Total 584 701 551 Balance -104 -131 -101 General Appearance Alert, Cooperative, No acute distress Lungs Crackles in bases, course diffusely. Cardiovascular Regular rate and rhythm, Normal S1 and S2, 2/6 systolic murmur increased at the base. Abdomen Normal bowel sounds, Soft, No tenderness, No guarding Extremities Trace edema bilaterally
[2016-09-20 14:42] VITALS: BP 91/53
[2016-09-20 18:07] VITALS: BP 94/59
[2016-09-20 22:16] VITALS: BP 133/63
[2016-09-21 03:44] VITALS: BP 100/43
[2016-09-21 07:33] VITALS: BP 144/55
[2016-09-21 10:20] VITALS: BP 100/58
[2016-09-21 14:50] VITALS: BP 104/49
[2016-09-21 18:08] VITALS: BP 104/50
--- NOTE | 2016-09-21 19:28 | Progress Note ---
Subjective General Feeling well today. SOB improved. cough stable. No abd pain. No nausea/ vomitting/diarrhea/cosntipation. Physical Exam Vital Signs / I&Os Vital Signs Date Time Temp Pulse Resp B/P Pulse O2 O2 Flow FiO2 Ox Delivery Rate 09/21 1922 5.0 09/21 1813 67 09/21 1808 36.7 67 18 104/50 90 Nasal 5.0 Cannula 09/21 1654 5.0 09/21 1450 36.3 69 18 104/49 90 Nasal 5.0 Cannula 09/21 1200 4.0 09/21 1020 36.4 100 18 100/58 93 Nasal 5.0 Cannula 09/21 1000 Nasal 5.0 Cannula 09/21 0946 4.0 09/21 0909 76 09/21 0733 36.8 60 18 144/55 91 Nasal 4.0 Cannula 09/21 0344 36.8 75 16 100/43 94 Nasal 4.0 Cannula 09/20 2216 36.7 91 18 133/63 89 Nasal 4.0 Cannula 09/20 2100 Nasal 4.0 Cannula I&O 09/21 0000 09/20 1600 09/20 0800 Intake Total 740 1100 0 Output Total 866 350 893 Balance -126 750 -893 General Appearance Alert, Cooperative, No acute distress Lungs Good air movement. Mildly course diffusely. Cardiovascular Regular rate and rhythm, Normal S1 and S2, 2/6 systolic murmur increased at the base. Abdomen Normal bowel sounds, Soft, No tenderness Extremities No edema Assessment and Plan Problem List 1. Pneumonia Plan Improving on antbiotics. 2. COPD mixed type Plan Improving. 3. Aortic valve replaced Plan On anticoagulation. INR low today. Started lovenox.
[2016-09-21 22:24] VITALS: BP 109/61
[2016-09-22] VITALS (7 sets, daily range): BP systolic 89–146; BP diastolic 36–91
--- NOTE | 2016-09-22 07:03 | Progress Note ---
Subjective General 86 y.o male with hx of copd, aortic valve replacement on coumadin and 4L O2 chronic admitted for pneumonia and cp, r/o [place]. Is doing better. Has breathing that is minimally better than admit. States that he has chest pressure in the mid chest that he feels is more related to his breathing. Hx of similar pressure in past. Coughing up lots of sputum. Worse today than yesterday. Physical Exam Vital Signs / I&Os Vital Signs Date Time Temp Pulse Resp B/P Pulse O2 O2 Flow FiO2 Ox Delivery Rate 09/22 0236 98.0 95 20 146/91 91 Nasal 5.0 Cannula 09/22 0024 Nasal 5.0 Cannula 09/21 2224 98.8 71 17 109/61 95 Nasal 5.0 Cannula 09/21 1922 5.0 09/21 1813 67 09/21 1808 98.1 67 18 104/50 90 Nasal 5.0 Cannula 09/21 1654 5.0 09/21 1450 97.3 69 18 104/49 90 Nasal 5.0 Cannula 09/21 1200 4.0 09/21 1020 97.5 100 18 100/58 93 Nasal 5.0 Cannula 09/21 1000 Nasal 5.0 Cannula 09/21 0946 4.0 09/21 0909 76 09/21 0733 98.2 60 18 144/55 91 Nasal 4.0 Cannula I&O 09/22 0000 09/21 1600 09/21 0800 Intake Total 760 580 300 Output Total 775 674 654 Balance -15 -94 -354 General Appearance Alert, Cooperative Lungs coarse BS with occasional wheeze and rhonchi Cardiovascular Regular rate and rhythm, has a click Abdomen Soft, No tenderness Extremities No edema LAB Results Laboratory Tests 09/22 0414 Chemistry Plasma Sodium (136 - 145 mmol/L) 142 Plasma Potassium (3.5 - 5.1 mmol/L) 4.3 Plasma Chloride (98 - 107 mmol/L) 106 CO2 (Enzymatic) (21 - 32 mmol/L) 28 BUN (7 - 18 mg/dL) 35 Creatinine (0.6 - 1.3 mg/dL) 1.1 Est GFR ( Amer) (mL/min) >60 Est GFR (Non-Af Amer) (mL/min) >60 Glucose (70 - 110 mg/dL) 90 Plasma Calcium (8.5 - 10.1 mg/dL) 8.2 Plasma Magnesium (1.8 - 2.4 mg/dL) 1.9 Total Bilirubin (0.0 - 1.0 mg/dL) 0.6 AST (15 - 37 U/L) 42 ALT (12 - 78 U/L) 36 Alkaline Phosphatase (46 - 116 U/L) 74 Total Protein (6.4 - 8.2 g/dL) 6.7 Albumin (3.3 - 5.0 g/dL) 2.8 Coagulation INR (0.8 - 1.2) 1.8 Hematology WBC (4.5 - 11.5 K/uL) 8.0 RBC (4.50 - 5.90 M/uL) 4.33 Hgb (13.5 - 17.5 gm/dL) 13.8 Hct (41.0 - 53.0 %) 41.0 MCV (80 - 100 fL) 95 MCH (26 - 34 pg) 32 RDW (11.6 - 14.8 %) 14.7 Neut % (Auto) (50 - 75 %) 59.4 Lymph % (Auto) (25 - 40 %) 23.2 [place] % (Auto) (3 - 14 %) 7.6 Eos % (Auto) (0 - 4 %) 9.3 Baso % (Auto) (0 - 2 %) 0.5 Plt Count, EDTA (150 - 400 K/uL) 139 PUBS MCHC (31 - 37 g/dL) 34 Assessment and Plan Problem List 1. Pneumonia Plan Improving slowly but feels worse today. CXR in am. 2. COPD mixed type Plan Is doing better at this time. 3. Aortic valve replaced Plan Increase on coumadin. On lovenox 4. Chest pressure Plan Has pressure in chest and check on nuclear test r/o cardiac
[2016-09-23 02:11] VITALS: BP 133/72
[2016-09-23 06:49] VITALS: BP 120/66
--- NOTE | 2016-09-23 08:19 | Progress Note ---
Subjective General Patient states that he is still feeling like he can't breathe well and pressure on his chest. Walked one loop around the floor and was totally beat. Not feeling well enough to go home. Has been with diarrhea that is new and pending results. Physical Exam Vital Signs / I&Os Vital Signs Date Time Temp Pulse Resp B/P Pulse O2 O2 Flow FiO2 Ox Delivery Rate 09/23 0734 5.0 09/23 0649 98.6 81 20 120/66 91 Nasal 5.0 Cannula 09/23 0211 98.2 99 20 133/72 81 Nasal 5.0 Cannula 09/22 2228 98.2 88 20 92/53 92 Nasal 5.0 Cannula 09/22 2100 Nasal 5.0 Cannula 09/22 1957 5.0 09/22 1823 98.4 77 20 125/71 90 Nasal 5.0 Cannula 09/22 1725 85 09/22 1523 5.0 09/22 1504 133/68 09/22 1429 98.2 67 20 89/49 90 Nasal 5.0 Cannula 09/22 1140 97.7 55 20 112/36 98 Nasal 5.0 Cannula 09/22 1135 5.0 09/22 0817 86 I&O 09/23 0000 09/22 1600 09/22 0800 Intake Total 700 660 250 Output Total 944 1221 315 Balance -244 -561 -65 General Appearance Alert, Cooperative Lungs coarse BS with good air movement. Cardiovascular Regular rate and rhythm Abdomen Soft, No tenderness Extremities No edema LAB Results Laboratory Tests 09/23 0505 Chemistry Plasma Sodium (136 - 145 mmol/L) 138 Plasma Potassium (3.5 - 5.1 mmol/L) 4.2 Plasma Chloride (98 - 107 mmol/L) 107 CO2 (Enzymatic) (21 - 32 mmol/L) 21 BUN (7 - 18 mg/dL) 34 Creatinine (0.6 - 1.3 mg/dL) 1.1 Est GFR ( Amer) (mL/min) >60 Est GFR (Non-Af Amer) (mL/min) >60 Glucose (70 - 110 mg/dL) 94 Plasma Calcium (8.5 - 10.1 mg/dL) 8.5 Hematology WBC (4.5 - 11.5 K/uL) 9.0 RBC (4.50 - 5.90 M/uL) 4.49 Hgb (13.5 - 17.5 gm/dL) 14.4 Hct (41.0 - 53.0 %) 43.0 MCV (80 - 100 fL) 96 MCH (26 - 34 pg) 32 RDW (11.6 - 14.8 %) 14.9 Neut % (Auto) (50 - 75 %) 66.6 Lymph % (Auto) (25 - 40 %) 19.4 [place] % (Auto) (3 - 14 %) 7.2 Eos % (Auto) (0 - 4 %) 6.5 Baso % (Auto) (0 - 2 %) 0.3 Plt Count, EDTA (150 - 400 K/uL) 149 PUBS MCHC (31 - 37 g/dL) 33 Microbiology Date/Time Procedure - Status Source Growth 09/23 214 Clostridium difficile Toxin A & B - COMP STOOL 09/23 214 Specimen Source - COMP STOOL Imaging CXR pending Assessment and Plan Problem List 1. COPD mixed type Plan Still not improving and will check on CXR still Has sob and chest pressure that is likely lung related. Has prfound weakness and check on PT eval ? need for SNF. 2. Pneumonia Plan On abx and check on cxr. 3. Chest pressure Plan Unable to have stress test at this time but he states is his typical copd. 4. Aortic valve replaced Plan On coumadin check on INR. 5. Weakness Plan PT eval ? snf. 6. Diarrhea Plan c diff neg.
--- NOTE | 2016-09-23 09:50 | DIAGNOSTIC IMAGING REPORT ---
PROCEDURE: XR CHEST 2 VIEW INDICATION: f/u pneumonia. TECHNIQUE: PA and lateral view. COMPARISON: Chest x-ray 09/18/2016 and 12/25/2014.. FINDINGS: There is extensive bilateral scarring with improved right basilar pneumonia. No change in the retrocardiac infiltrate. Stable left pleural thickening. Median sternotomy, valvuloplasty and CABG. Heart size, mediastinum and pulmonary vessels are normal. Stable mild chronic lower thoracic spine compression fractures. IMPRESSION: 1. Improved right basilar pneumonia 2. No change in the retrocardiac infiltrate 3. Extensive bilateral pulmonary parenchymal scarring 4. CABG and valvuloplasty
[2016-09-23 11:27] VITALS: BP 116/44
[2016-09-23 14:04] VITALS: BP 99/37
[2016-09-23 18:38] VITALS: BP 109/63
[2016-09-23 22:29] VITALS: BP 127/73
[2016-09-24 02:49] VITALS: BP 116/72
[2016-09-24 06:51] VITALS: BP 125/71
--- NOTE | 2016-09-24 07:41 | Progress Note ---
Subjective General 86 y.o male with hx of copd, aortic valve replacement on coumadin and 4L O2 chronic admitted for pneumonia and cp, r/o NV. Is doing better. Has breathing that is minimally better than admit. Today he states: H feels that he is at a plateau. Really short of breath with any activity and not getting better. Physical Exam Vital Signs / I&Os Vital Signs Date Time Temp Pulse Resp B/P Pulse O2 O2 Flow FiO2 Ox Delivery Rate 09/24 0651 98.2 61 20 125/71 91 Mask 6.0 09/24 0249 98.1 74 20 116/72 95 Nasal 6.0 Cannula 09/23 2229 97.5 92 20 127/73 88 Nasal 6.0 Cannula 09/23 2012 6.0 09/23 1947 Nasal 6.0 Cannula 09/23 1838 97.5 91 20 109/63 88 Nasal 5.0 Cannula 09/23 1746 72 09/23 1601 5.0 09/23 1404 97.9 72 20 99/37 90 Nasal 5.0 Cannula 09/23 1253 5.0 09/23 1127 98.2 96 20 116/44 92 Nasal 5.0 Cannula 09/23 0909 80 I&O 09/24 0000 09/23 1600 09/23 0800 Intake Total 360 1120 150 Output Total 818 905 900 Balance -458 215 -750 General Appearance Alert, talkative in full sentences HEENT dentures above, below Lungs coarse BS Cardiovascular regular HR with L lower sternal border murmur and right sternal border as well with click Abdomen Soft, No tenderness Extremities No edema LAB Results Laboratory Tests 09/24 09/23 0515 0850 Coagulation INR (0.8 - 1.2) 3.0 2.7 Assessment and Plan Problem List 1. Hypoxia Plan Continue O2 2. COPD mixed type Plan Will try acapella spirometry and see if helps some breaking up mucus. 3. Aortic valve replaced Plan Continue monitor INR and also check on echo as it has been a long time. 4. Diabetes Plan Doing well.
[2016-09-24 10:54] VITALS: BP 94/54
--- NOTE | 2016-09-24 14:09 | Provider's Discharge Care Plan ---
Problem, Goal, Plan Problem List 1. Aortic valve replaced Instructions: Take meds as directed 2. COPD mixed type Instructions: is on inhalers and abx 3. Pneumonia Instructions: Take meds as directed 4. Hypoxia Instructions: continue with O2 NC 5. Weakness Instructions: PT/OT eval 6. Diarrhea Instructions: Had c diff neg and 1 day diarrhea only
[2016-09-24 15:23] VITALS: BP 94/54
[2016-09-24] MEDS ORDERED: LEVOFLOXACIN250 MG PO (15:44)
--- NOTE | 2016-09-24 20:41 | DISCHARGE SUMMARY ---
ADMIT DATE: 09/18/2016 DISCHARGE DATE: 09/24/2016 ADMITTING DIAGNOSES: 1. Pneumonia 2. Chronic obstructive pulmonary disease exacerbation 3. Weakness 4. Chest pressure DISCHARGE DIAGNOSES: 1. Pneumonia 2. Chronic obstructive pulmonary disease exacerbation 3. Weakness 4. Chest pressure BRIEF HISTORY: Please refer to admit dictation for details. HOSPITAL COURSE: This is an 86-year-old male with the longstanding history of COPD and O2 dependence who presented to my clinic and then sent to the emergency department for shortness of breath, chest discomfort and hypotension. In the emergency department, he was found to have hypoxemia, as well as some x-ray with pneumonia. He was treated with antibiotics and also was ruled out for a myocardial infarction with chest discomfort. He had continued issues of slow improvement and even at time of discharge he was still considerably weak with ambulating through the halls. I had physical therapy evaluate him and a decision was made that he would benefit from rehabilitation and continued strengthening. He has had a history of aortic valve replacement and we were going to monitor on his INRs in the hospital. His INRs were generally better than at home where he normally is, very difficult to maintain on Coumadin; 60% of the time he is either above his goal of 3.5 or below his goal of 2.5. His COPD was treated with inhalers and antibiotics, as well as the pneumonia. His hypoxia, he had O2 in the hospital. He did have 1 episode of diarrhea that was C. difficile negative, as well as was negative culture. At time of discharge, he was better than when he came in to the hospital, but he continued to have significant weakness, as well as shortness of breath with any activity. His discharge was to a half-way facility. DISCHARGE INSTRUCTIONS/MEDICATIONS: Discharge medications: Included levofloxacin 750 mg p.o. q.48 hours x5 doses, EpiPen as needed for allergic reaction, diclofenac gel topically t.i.d. p.r.n. for joint pain, Mirapex 0.125 mg at bedtime, gabapentin 100-300 mg t.i.d. p.r.n. pain, Welchol 2 tablets t.i.d., metformin 1000 mg p.o. b.i.d., Spiriva 1 inhalation daily, latanoprost solution 0.005% 1 drop to his eyes at night, KCl 10 mEq p.o. b.i.d., acetaminophen 325 mg p.o. q.4 hours p.r.n. pain, carvedilol 3.125 mg p.o. b.i.d., furosemide 20 mg p.o. daily, atorvastatin 40 mg p.o. daily, magnesium 1 p.o. b.i.d., 65 mg tablet that is, lisinopril 10 mg tablet one-half p.o. daily, albuterol 2.5 mg solution four times a day, fluoxetine 10 mg p.o. q.a.m., Advair Diskus 250/50 one inhalation b.i.d., Daliresp 500 mcg capsule daily, pantoprazole 40 mg p.o. daily, hydrocodone 5/325 one p.o. 4 hours p.r.n. The patient is to follow up in the half-way facility. We will work with physical therapy, occupational therapy on strengthening. We will monitor his INRs, recheck on his INR on Thursday and anticipate that patient will improve and be able to have discharge to home as next step.
--- NOTE | 2016-09-25 22:07 | DIAGNOSTIC IMAGING REPORT ---
REFERRING PHYSICIAN/PROVIDER: Casey Vila MD CONSULTING PRINTING PLATE MAKER: Elias Acosta MD PROCEDURE: 2D echo, M-mode and complete color and flow Doppler interrogation TECHNICAL QUALITY: Technically difficult INDICATION: SOB HX OF AVR INTERPRETATIONS: CHAMBERS: LEFT ATRIUM: Left atrial enlargement LEFT VENTRICLE: Normal left ventricular size. EF 55%. Septal hypertrophy. D-shaped interventricular septum consistent with pressure/volume overload. Impaired relaxation consistent with grade I diastolic dysfunction. Anterior wall akinesis and basal inferior hypokinesis. RIGHT ATRIUM: Normal right atrial size. RIGHT VENTRICLE: Severe right ventricular enlargement VALVES: All valves nonrheumatic unless otherwise indicated. AORTIC VALVE: Mechanical prosthetic valve with normal function. Peak velocity 1.5 m/s, mean gradient 4 mmHg. MITRAL VALVE: Mitral annular calcification with trace mitral regurgitation. No mitral stenosis. TRICUSPID VALVE: Severe tricuspid regurgitation. RVSP 102 mmHg. PULMONIC VALVE: Moderate pulmonic regurgitation. MISCELLANEOUS: No pericardial effusion. HEMODYNAMICS: Dilated IVC with normal inspiratory collapse. CVP is 8 mmHg. IMPRESSION: 1. Normal left ventricular size and systolic function, EF 55% with anterior wall akinesis and basal inferior hypokinesis. 2. Impaired relaxation consistent with grade I diastolic dysfunction. 3. Normally functioning mechanical aortic valve prosthesis. 4. Moderate-severe tricuspid regurgitation. 5. Moderate pulmonic regurgitation. 6. Right ventricular enlargement with reduced systolic function. 7. Severe pulmonary hypertension with estimated pulmonary artery systolic pressure 110 mmHg. 8. No pericardial effusion. 9. Compared with prior echocardiogram report from 11/13/15 pulmonary artery pressures have increased, previously 61 mmHg now 110 mmHg. There is now right ventricular enlargement with decreased systolic function. Anterior wall akinesis is new. Critical findings discussed with Dr. Morton.
== END 2016-09-24 17:20 | DRG 190 ==
LOC: ED SRH 12:17 → TRANS SRH 15:22 → CC SRH 17:54
PROVIDERS: ADMIT Family Medicine
DX: J44.0 Chronic obstructive pulmonary disease with (acute) lower respiratory infection (principal); J18.9 Pneumonia, unspecified organism; J44.1 Chronic obstructive pulmonary disease with (acute) exacerbation; R07.89 Other chest pain; R19.7 Diarrhea, unspecified; I42.9 Cardiomyopathy, unspecified; Z87.891 Personal history of nicotine dependence; I50.9 Heart failure, unspecified; E11.42 Type 2 diabetes mellitus with diabetic polyneuropathy; G47.33 Obstructive sleep apnea (adult) (pediatric); Z95.2 Presence of prosthetic heart valve; Z79.01 Long term (current) use of anticoagulants; Z79.84 Long term (current) use of oral hypoglycemic drugs; I25.10 Atherosclerotic heart disease of native coronary artery without angina pectoris; Z95.1 Presence of aortocoronary bypass graft; Z95.5 Presence of coronary angioplasty implant and graft
CPT/HCPCS: 85241; 90047; 90065; 90074; 90098; 90100; 90112; 90616; 92031; 92132; 92610; 92720; 93004; 94001; 94060; 95059

== ENCOUNTER 2016-09-28 06:57 | Observation (INO) | payer OTHER, BC ==
[~2016-09-28] VITALS: Ht 167.6 cm; Wt 63.7 kg
[~2016-09-28 06:57] MED LIST changes: +LEVOFLOXACIN250 MG PO
--- NOTE | 2016-09-28 09:14 | ED CLINICAL REPORT ---
Clinical Report - Physicians/Mid Levels [facility] [address] [place] [address] 09/28/2016 6:57 Patient: HIPOLITO BAILEY Time Seen: 07:02 Sep 28 2016. Arrived- By ambulance. Historian- patient and EMS personnel. CPT: ER phys charges level 5 plus (#[id number]). EKG interpretation (#[id number]). HISTORY OF PRESENT ILLNESS Chief Complaint: CHEST PAIN. SHORTNESS OF BREATH. At its maximum, severity described as moderate. When seen in the E.D., severity described as mild and 2 / 10. It is described as pressure and tightness and it is described as located in the central chest area. This started yesterday Comes on with any light activity. Is on home 02 and found by EMS with sats in the low 80's so was placed on a mask. Has had episodes of chest pressure with any exertion since yesterday. and is still present. Onset during light activity. No nausea, vomiting or diaphoresis. He has had difficulty breathing. Similar symptoms previously: As bad. Diagnosis: (pneumonia). Recent medical care: The patient was seen recently at this facility and hospitalized (10 days ago). Seen for similar symptoms. Evaluation/treatment: x-rays and labs- R/O PR. Diagnosis: (pneumonia). REVIEW OF SYSTEMS No fever, chills, cough, pedal edema or calf pain. No fainting episodes, sore throat, abdominal pain, black stools or difficulty with urination. No skin rash, enlarged lymph nodes, joint pain or bloody stools. All systems otherwise negative, except as recorded above. PAST HISTORY Peripheral Neuropathy. Bradycardia. Carotid bruit. Asbestosis. Obstructive Sleep Apnea. Hyperlipidemia. Aortic valve disorder. Cardiomyopathy. Back Pain. Diabetes Mellitus Type 2. Syncope. Actinic keratosis. Inguinal hernia. Shoulder pain. Hip pain. Lung Disease. Chest Wall Pain. Hypercholesterolemia. Tetanus Status. Contusion. Near Syncope. Pneumonia. Vomiting. Abdominal Pain. Gastroesophageal Reflux. Hematoma. Tonsillitis. Lipids abnormal. COPD - Chronic Obstructive Pulmonary Disease. Cancer. Myocardial Infarction. Vertigo. Chest Pain. Sleep Apnea. Hypertension. Diabetes Mellitus [RuleOut]. Lower Extremity Pain SURGERIES: Aortic Valve Replacement. 2008 Bowel Surgery. Coronary Angioplasty. Coronary Artery Bypass Graft.1980 Hernia Repair. Prostatectomy. Medications: Coreg Oral 3.125 mg, 2x a day. Coumadin Oral MWF and 2.5mg TTHSS, at bedtime. Daliresp Oral (Tablet 500 mcg) 1 tablet, daily. Diabethiderm ext cream, as needed. EpiPen 2-Henry Injection. Furosemide Oral 20 mg, daily. Gabapentin Oral 100 mg, 1-3 tabs, 3x a day as needed, nerve pain. Latanoprost Ophthalmic 1 drop OU . Lisinopril Oral 5 mg, daily. Magnesium Oral 1 cap, 64 mg, 2x a day. Jad krill 30mg. MetFORMIN HCl Oral 1000 mg , 2x a day. Mirapex Oral 0.125 mg, at bedtime. Multivitamin Oral (with vit K 2 tab daily for coumadin up/down). Potassium Oral 10 meq BID. ProAir HFA Inhalation 2 puffs, as needed. Protonix Oral 40 mg, daily. Spiriva HandiHaler Inhalation (Capsule 18 mcg) 1 capsule, daily. Tylenol Oral (Tablet 325 mg) 1 tablet, as needed (every 4 hours). Voltaren Transdermal to feet. WelChol Oral 625 mg, 2 tabs TID. Advair Diskus Inhalation 1 puff, 2x a day. Atorvastatin Calcium Oral 40 mg, daily. Allergies: No Known Drug Allergy. SOCIAL HISTORY Former smoker, end date 1980 (90 pk-yr). ADDITIONAL NOTES The nursing notes have been reviewed. PHYSICAL EXAM Vital Signs: 09/28/2016 07:02 BP: 100/56. HR: 67. RR: 24. O2 saturation: 96%. Temp: 98.2 F. Pain level now: 10. Appearance: Alert. Patient in mild distress. Eyes: Eyes normal inspection. ENT: Pharynx normal. Neck: Normal inspection. JVD present. Neck supple. CVS: Normal heart rate and rhythm. Heart sounds normal. Pulses normal. Respiratory: Moderate respiratory distress. Breath sounds normal. Chest nontender. Abdomen: Soft and nontender. Back: Normal external inspection. Skin: Skin warm. Normal skin color. No rash. Extremities: Extremities exhibit normal ROM. No calf tenderness. No lower extremity edema. Neuro: Oriented X 3. No motor deficit. No sensory deficit. Reflexes normal. LABS, X-RAYS, AND EKG EKG: Normal sinus rhythm. First-degree atrioventricular block. Wide QRS- intraventricular conduction delay. Non-specific ST segment / T wave abnormalities. Prior EKG unavailable. The study has been interpreted contemporaneously. The study has been independently viewed by me. The EKG appears to be a good tracing. Chest X-ray: (Persistent RUL and RLL infiltrate. Chronic scarring.). Views: AP (portable). The X-rays were independently viewed by me and interpreted contemporaneously by me. A comparison with prior films reveals that the findings are unchanged. Laboratory Tests: CBC w Diff: (CHARLENE: 09/28/2016 07:25) ( MsgRcvd 09/28/2016 08:00) Final results Test Result Flag Units (Reference) WHITE BLOOD COUNT 6.8 K/uL (4.5-11.5) RED BLOOD COUNT 3.95 L M/uL (4.50-5.90) HEMOGLOBIN 12.7 L gm/dL (13.5-17.5) HEMATOCRIT 37.4 L % (41.0-53.0) MEAN CELL VOLUME 95 fL (80-100) MEAN CORPUSCULAR HGB 32 pg (26-34) MEAN CORPUSCULAR HGB CONC 34 g/dL (31-37) RED CELL DISTRIBUTION WIDTH 14.6 % (11.6-14.8) PLATELET COUNT 139 L K/uL (150-400) NEUTROPHIL % 79.4 H % (50-75) LYMPH % 13.1 L % (25-40) MONO % 7.3 % (3-14) EOSINOPHIL % 0.1 % (0-4) BASOPHIL % 0.1 % (0-2) PT with INR: (CHARLENE: 09/28/2016 07:25) ( MsgRcvd 09/28/2016 08:08) Final results Test Result Flag Units (Reference) INR 3.9 H (0.8-1.2) Low Intensity Therapy: INR 1.5-2.0 PT range 18.5-23.1Mod.Intensity Therapy: INR 2.0-3.0 PT range 23.1-31.5High Intensity Therapy: INR 2.5-3.5 PT range 27.4-35.5High Intensity Therapy 2: INR 3.0-4.0 PT range 31.5-39.3 [id number]: (CHARLENE: 09/28/2016 07:25) ( [facility] 09/28/2016 08:07) Final results Test Result Flag Units (Reference) D-DIMER QUANTITATIVE 0.32 ug/mLFEU (0.27-0.52) The primary value of this quantitative assay relates toits negative predictive value (i.e. exclusion) of pulmonaryembolism/deep vein thrombosis/DIC.Elevated levels of d-dimer may also occur with:, age, cancer, inflammation, liver disease,post-op, infection, hematoma, coronary disease, peripheralarteriopathy, bleeding disorders and thrombolytic treatment.Results should be correlated with other clinical andradiological data.Testing Methodology: Latex Immunoassay BNP: (CHARLENE: 09/28/2016 07:25) ( [facility] 09/28/2016 08:19) Final results Test Result Flag Units (Reference) B-TYPE NATRIURETIC PEPTIDE 1130 H pg/ml (5-100) Lactate, Serum: (CHARLENE: 09/28/2016 07:25) ( [facility] 09/28/2016 08:24) Final results Test Result Flag Units (Reference) LACTIC ACID 1.9 mmol/L (0.4-2.0) [id number]: (CHARLENE: 09/28/2016 07:25) ( [facility] 09/28/2016 08:36) Final results Test Result Flag Units (Reference) PROCALCITONIN <0.5 ng/mL (0-0.5) PCT Concentration: Interpretation : Risk/option for action PCT <=0.5 ng/mL : Systemic : Low risk forinfection(sepsis): progression to severeis not likely. : systemic infection.Local bacterial : CAUTION-PCT levelsinfection is : below 0.5 ng/mL do notpossible. : exclude an infection,because localizedinfections (withoutsystemic signs) may beassociated with suchlow levels. If PCT ismeasured very earlyafter a bacterialchallenge (usually <6hours), these valuesmay still be low. Inthis case PCT shouldbe re-assessed 6-24hours later. PCT >0.5 and : Systemic infection: Moderate risk for<= 2 ng/mL : (sepsis) is : progression to severepossible, but : systemic infection.other conditions : The patient should beare known to : closely monitoredelevate PCT. : both clinically andby re-assessing PCTwithin 6-24 hours. PCT > 2 ng/mL : Systemic infection: High risk for(sepsis) is likely: progression to severeunless other : systemic infection.causes are known. : PCT >= 10 ng/mL : Important systemic: High likelihood ofinflammatory : severe sepsis orresponse, almost : septic shock.exclusively due to:severe bacterial :sepsis or septic :shock. : CHEM 13 PANEL: (CHARLENE: 09/28/2016 07:25) ( MsgRcvd 09/28/2016 08:24) Final results Test Result Flag Units (Reference) GLUCOSE 120 H mg/dL (70-110) BUN 35 H mg/dL (7-18) CREATININE 1.3 mg/dL (0.6-1.3) Estimated GFR 55.37 mL/min Estimated GFR- >60 mL/min Note: Persistent reduction over 3 months in eGFR<60 mL/min/1.73 m2 defines CKD. Patients with eGFR values>=60 mL/min/1.73 m2 may also have CKD if evidence ofpersistent proteinuria. Additional information may be foundat www.kidney.org. SODIUM 138 mmol/L (136-145) POTASSIUM 4.0 mmol/L (3.5-5.1) CHLORIDE 106 mmol/L (98-107) CARBON DIOXIDE 22 mmol/L (21-32) CALCIUM 8.3 L mg/dL (8.5-10.1) TOTAL PROTEIN 6.8 g/dL (6.4-8.2) ALBUMIN 2.8 L g/dL (3.3-5.0) BILIRUBIN, TOTAL 0.6 mg/dL (0.0-1.0) ALKALINE PHOSPHATASE 65 U/L (46-116) AST (SGOT) 34 U/L (15-37) ALT (SGPT) 41 U/L (12-78) MAGNESIUM 1.3 L mg/dL (1.8-2.4) CPK 48 U/L (24-260) TROPONIN I 0.23 ng/mL (0.00-1.5) TROPONIN REFERENCE RANGE:<0.1 NEGATIVE0.1-1.5 INDETERMINANT>1.5 POSITIVE ABG: (CHARLENE: 09/28/2016 07:16) ( MsgRcvd 09/28/2016 07:43) Final results Test Result Flag Units (Reference) FIO2 100 % (20-101) ABG MODE OF DELIVERY NRB MODIFIED MAYELIN TEST POSITIVE? YES LITERS PER MIN. 15 L/MIN (0-20) ARTERIAL BLOOD GAS SITE RR ARTERIAL BLOOD GAS pH 7.43 (7.35-7.45) ABG PCO2 31.5 L mmHg (35-45) ABG PO2 220.0 H mmHg (60.0-80.0) ABG BASE EXCESS -2.9 H mmol/L (-6.0--6.0) ABG HCO3 21.0 mmol/L (20.0-26.0) ABG TCO2 21.9 L mmol/L (24.0-30.0) ABG BiAxN0p 463.6 H mmHg (7.0-14.0) *NOTE: Normal rangeis based on aFIO2 of 21% ABG SAT O2 100.3 H % (95.1-100.0) ABG TOTAL HEMOGLOBIN 12.5 L g/dL (14.0-18.0) ABG O2 HEMOGLOBIN 98.4 % (95.0-100.0) ABG CARBOXYHEMOGLOBIN 1.7 H % (0.5-1.5) ABG METHEMOGLOBIN 0.2 L % (0.4-1.5) ABG RHEMOGLOBIN -0.3 % . PROGRESS AND PROCEDURES Course of Care: 07:42 09/28/16. Pt placed on 02 mask by medics and sat has been 95-100%. Pt now in no distress. Pt with chest pressure given low level exertion and hypoxia over basseline with dyspnea. Has elevated BNP and some degree of CHF. Discussed case with on-call health care provider, (Cyrus). Reviewed test results. Agreed upon treatment plan. Patient/family counseled. Old medical records ordered. Disposition orders written. Disposition: Admitted to Acute Care. CLINICAL IMPRESSION Acute dyspnea with CHF and resolving pneumonia Chest pressure r/o anginal equivalent. Pre-renal azotemia. (Electronically signed by Robin Webb MD 09/28/2016 23:08)
--- NOTE | 2016-09-28 09:14 | ED CLINICAL REPORT ---
Clinical Report - Physicians/Mid Levels [facility] [address] [place] [address] 09/28/2016 6:57 Patient: HIPOLITO BAILEY Time Seen: 07:02 Sep 28 2016. Arrived- By ambulance. Historian- patient and EMS personnel. CPT: ER phys charges level 5 plus (#[id number]). EKG interpretation (#[id number]). HISTORY OF PRESENT ILLNESS Chief Complaint: CHEST PAIN. SHORTNESS OF BREATH. At its maximum, severity described as moderate. When seen in the E.D., severity described as mild and 2 / 10. It is described as pressure and tightness and it is described as located in the central chest area. This started yesterday Comes on with any light activity. Is on home 02 and found by EMS with sats in the low 80's so was placed on a mask. Has had episodes of chest pressure with any exertion since yesterday. and is still present. Onset during light activity. No nausea, vomiting or diaphoresis. He has had difficulty breathing. Similar symptoms previously: As bad. Diagnosis: (pneumonia). Recent medical care: The patient was seen recently at this facility and hospitalized (10 days ago). Seen for similar symptoms. Evaluation/treatment: x-rays and labs- R/O NE. Diagnosis: (pneumonia). REVIEW OF SYSTEMS No fever, chills, cough, pedal edema or calf pain. No fainting episodes, sore throat, abdominal pain, black stools or difficulty with urination. No skin rash, enlarged lymph nodes, joint pain or bloody stools. All systems otherwise negative, except as recorded above. PAST HISTORY Peripheral Neuropathy. Bradycardia. Carotid bruit. Asbestosis. Obstructive Sleep Apnea. Hyperlipidemia. Aortic valve disorder. Cardiomyopathy. Back Pain. Diabetes Mellitus Type 2. Syncope. Actinic keratosis. Inguinal hernia. Shoulder pain. Hip pain. Lung Disease. Chest Wall Pain. Hypercholesterolemia. Tetanus Status. Contusion. Near Syncope. Pneumonia. Vomiting. Abdominal Pain. Gastroesophageal Reflux. Hematoma. Tonsillitis. Lipids abnormal. COPD - Chronic Obstructive Pulmonary Disease. Cancer. Myocardial Infarction. Vertigo. Chest Pain. Sleep Apnea. Hypertension. Diabetes Mellitus [RuleOut]. Lower Extremity Pain SURGERIES: Aortic Valve Replacement. 2008 Bowel Surgery. Coronary Angioplasty. Coronary Artery Bypass Graft.1980 Hernia Repair. Prostatectomy. Medications: Coreg Oral 3.125 mg, 2x a day. Coumadin Oral MWF and 2.5mg TTHSS, at bedtime. Daliresp Oral (Tablet 500 mcg) 1 tablet, daily. Diabethiderm ext cream, as needed. EpiPen 2-Henry Injection. Furosemide Oral 20 mg, daily. Gabapentin Oral 100 mg, 1-3 tabs, 3x a day as needed, nerve pain. Latanoprost Ophthalmic 1 drop OU . Lisinopril Oral 5 mg, daily. Magnesium Oral 1 cap, 64 mg, 2x a day. Jad krill 30mg. MetFORMIN HCl Oral 1000 mg , 2x a day. Mirapex Oral 0.125 mg, at bedtime. Multivitamin Oral (with vit K 2 tab daily for coumadin up/down). Potassium Oral 10 meq BID. ProAir HFA Inhalation 2 puffs, as needed. Protonix Oral 40 mg, daily. Spiriva HandiHaler Inhalation (Capsule 18 mcg) 1 capsule, daily. Tylenol Oral (Tablet 325 mg) 1 tablet, as needed (every 4 hours). Voltaren Transdermal to feet. WelChol Oral 625 mg, 2 tabs TID. Advair Diskus Inhalation 1 puff, 2x a day. Atorvastatin Calcium Oral 40 mg, daily. Allergies: No Known Drug Allergy. SOCIAL HISTORY Former smoker, end date 1980 (90 pk-yr). ADDITIONAL NOTES The nursing notes have been reviewed. PHYSICAL EXAM Vital Signs: 09/28/2016 07:02 BP: 100/56. HR: 67. RR: 24. O2 saturation: 96%. Temp: 98.2 F. Pain level now: 10. Appearance: Alert. Patient in mild distress. Eyes: Eyes normal inspection. ENT: Pharynx normal. Neck: Normal inspection. JVD present. Neck supple. CVS: Normal heart rate and rhythm. Heart sounds normal. Pulses normal. Respiratory: Moderate respiratory distress. Breath sounds normal. Chest nontender. Abdomen: Soft and nontender. Back: Normal external inspection. Skin: Skin warm. Normal skin color. No rash. Extremities: Extremities exhibit normal ROM. No calf tenderness. No lower extremity edema. Neuro: Oriented X 3. No motor deficit. No sensory deficit. Reflexes normal. LABS, X-RAYS, AND EKG EKG: Normal sinus rhythm. First-degree atrioventricular block. Wide QRS- intraventricular conduction delay. Non-specific ST segment / T wave abnormalities. Prior EKG unavailable. The study has been interpreted contemporaneously. The study has been independently viewed by me. The EKG appears to be a good tracing. Chest X-ray: (Persistent RUL and RLL infiltrate. Chronic scarring.). Views: AP (portable). The X-rays were independently viewed by me and interpreted contemporaneously by me. A comparison with prior films reveals that the findings are unchanged. Laboratory Tests: CBC w Diff: (CHARLENE: 09/28/2016 07:25) ( MsgRcvd 09/28/2016 08:00) Final results Test Result Flag Units (Reference) WHITE BLOOD COUNT 6.8 K/uL (4.5-11.5) RED BLOOD COUNT 3.95 L M/uL (4.50-5.90) HEMOGLOBIN 12.7 L gm/dL (13.5-17.5) HEMATOCRIT 37.4 L % (41.0-53.0) MEAN CELL VOLUME 95 fL (80-100) MEAN CORPUSCULAR HGB 32 pg (26-34) MEAN CORPUSCULAR HGB CONC 34 g/dL (31-37) RED CELL DISTRIBUTION WIDTH 14.6 % (11.6-14.8) PLATELET COUNT 139 L K/uL (150-400) NEUTROPHIL % 79.4 H % (50-75) LYMPH % 13.1 L % (25-40) MONO % 7.3 % (3-14) EOSINOPHIL % 0.1 % (0-4) BASOPHIL % 0.1 % (0-2) PT with INR: (CHARLENE: 09/28/2016 07:25) ( MsgRcvd 09/28/2016 08:08) Final results Test Result Flag Units (Reference) INR 3.9 H (0.8-1.2) Low Intensity Therapy: INR 1.5-2.0 PT range 18.5-23.1Mod.Intensity Therapy: INR 2.0-3.0 PT range 23.1-31.5High Intensity Therapy: INR 2.5-3.5 PT range 27.4-35.5High Intensity Therapy 2: INR 3.0-4.0 PT range 31.5-39.3 [id number]: (CHARLENE: 09/28/2016 07:25) ( [facility] 09/28/2016 08:07) Final results Test Result Flag Units (Reference) D-DIMER QUANTITATIVE 0.32 ug/mLFEU (0.27-0.52) The primary value of this quantitative assay relates toits negative predictive value (i.e. exclusion) of pulmonaryembolism/deep vein thrombosis/DIC.Elevated levels of d-dimer may also occur with:, age, cancer, inflammation, liver disease,post-op, infection, hematoma, coronary disease, peripheralarteriopathy, bleeding disorders and thrombolytic treatment.Results should be correlated with other clinical andradiological data.Testing Methodology: Latex Immunoassay BNP: (CHARLENE: 09/28/2016 07:25) ( [facility] 09/28/2016 08:19) Final results Test Result Flag Units (Reference) B-TYPE NATRIURETIC PEPTIDE 1130 H pg/ml (5-100) Lactate, Serum: (CHARLENE: 09/28/2016 07:25) ( [facility] 09/28/2016 08:24) Final results Test Result Flag Units (Reference) LACTIC ACID 1.9 mmol/L (0.4-2.0) [id number]: (CHARLENE: 09/28/2016 07:25) ( [facility] 09/28/2016 08:36) Final results Test Result Flag Units (Reference) PROCALCITONIN <0.5 ng/mL (0-0.5) PCT Concentration: Interpretation : Risk/option for action PCT <=0.5 ng/mL : Systemic : Low risk forinfection(sepsis): progression to severeis not likely. : systemic infection.Local bacterial : CAUTION-PCT levelsinfection is : below 0.5 ng/mL do notpossible. : exclude an infection,because localizedinfections (withoutsystemic signs) may beassociated with suchlow levels. If PCT ismeasured very earlyafter a bacterialchallenge (usually <6hours), these valuesmay still be low. Inthis case PCT shouldbe re-assessed 6-24hours later. PCT >0.5 and : Systemic infection: Moderate risk for<= 2 ng/mL : (sepsis) is : progression to severepossible, but : systemic infection.other conditions : The patient should beare known to : closely monitoredelevate PCT. : both clinically andby re-assessing PCTwithin 6-24 hours. PCT > 2 ng/mL : Systemic infection: High risk for(sepsis) is likely: progression to severeunless other : systemic infection.causes are known. : PCT >= 10 ng/mL : Important systemic: High likelihood ofinflammatory : severe sepsis orresponse, almost : septic shock.exclusively due to:severe bacterial :sepsis or septic :shock. : CHEM 13 PANEL: (CHARLENE: 09/28/2016 07:25) ( MsgRcvd 09/28/2016 08:24) Final results Test Result Flag Units (Reference) GLUCOSE 120 H mg/dL (70-110) BUN 35 H mg/dL (7-18) CREATININE 1.3 mg/dL (0.6-1.3) Estimated GFR 55.37 mL/min Estimated GFR- >60 mL/min Note: Persistent reduction over 3 months in eGFR<60 mL/min/1.73 m2 defines CKD. Patients with eGFR values>=60 mL/min/1.73 m2 may also have CKD if evidence ofpersistent proteinuria. Additional information may be foundat www.kidney.org. SODIUM 138 mmol/L (136-145) POTASSIUM 4.0 mmol/L (3.5-5.1) CHLORIDE 106 mmol/L (98-107) CARBON DIOXIDE 22 mmol/L (21-32) CALCIUM 8.3 L mg/dL (8.5-10.1) TOTAL PROTEIN 6.8 g/dL (6.4-8.2) ALBUMIN 2.8 L g/dL (3.3-5.0) BILIRUBIN, TOTAL 0.6 mg/dL (0.0-1.0) ALKALINE PHOSPHATASE 65 U/L (46-116) AST (SGOT) 34 U/L (15-37) ALT (SGPT) 41 U/L (12-78) MAGNESIUM 1.3 L mg/dL (1.8-2.4) CPK 48 U/L (24-260) TROPONIN I 0.23 ng/mL (0.00-1.5) TROPONIN REFERENCE RANGE:<0.1 NEGATIVE0.1-1.5 INDETERMINANT>1.5 POSITIVE ABG: (CHARLENE: 09/28/2016 07:16) ( MsgRcvd 09/28/2016 07:43) Final results Test Result Flag Units (Reference) FIO2 100 % (20-101) ABG MODE OF DELIVERY NRB MODIFIED MAYELIN TEST POSITIVE? YES LITERS PER MIN. 15 L/MIN (0-20) ARTERIAL BLOOD GAS SITE RR ARTERIAL BLOOD GAS pH 7.43 (7.35-7.45) ABG PCO2 31.5 L mmHg (35-45) ABG PO2 220.0 H mmHg (60.0-80.0) ABG BASE EXCESS -2.9 H mmol/L (-6.0--6.0) ABG HCO3 21.0 mmol/L (20.0-26.0) ABG TCO2 21.9 L mmol/L (24.0-30.0) ABG [id number] 463.6 H mmHg (7.0-14.0) *NOTE: Normal rangeis based on aFIO2 of 21% ABG SAT O2 100.3 H % (95.1-100.0) ABG TOTAL HEMOGLOBIN 12.5 L g/dL (14.0-18.0) ABG O2 HEMOGLOBIN 98.4 % (95.0-100.0) ABG CARBOXYHEMOGLOBIN 1.7 H % (0.5-1.5) ABG METHEMOGLOBIN 0.2 L % (0.4-1.5) ABG RHEMOGLOBIN -0.3 % . PROGRESS AND PROCEDURES Course of Care: 07:42 09/28/16. Pt placed on 02 mask by medics and sat has been 95-100%. Pt now in no distress. Pt with chest pressure given low level exertion and hypoxia over basseline with dyspnea. Has elevated BNP and some degree of CHF. Discussed case with on-call health care provider, (Cyrus). Reviewed test results. Agreed upon treatment plan. Patient/family counseled. Old medical records ordered. Disposition orders written. Disposition: Admitted to Acute Care. CLINICAL IMPRESSION Acute dyspnea with CHF and resolving pneumonia Chest pressure r/o anginal equivalent. Pre-renal azotemia. (Electronically signed by Robin Webb MD 09/28/2016 23:08)
--- NOTE | 2016-09-28 09:15 | ED ORDER SUMMARY ---
..... Patient: HIPOLITO BAILEY OrderSheet [facility] VisitID: [id number] [place] [address] 86y, M Registration Date/Time: 09/28/2016 ORDER SHEET Weight: 65.7 kg Allergies: No Known Drug Allergy GENERAL ORDERS: Chest 1V Urgent (07:04 09/28/2016 Shaheed HERNANDEZ) (Ack 7:19 JAYNAoecarlos) (7:48 KHoerner) Mechanical Systems Designer (Continuous) (07:04 09/28/2016 Shaheed HERNANDEZ) (7:14 JSimbeck R.N.) Cardiac Panel Stat (07:04 09/28/2016 Shaheed HERNANDEZ) (Ack 7:19 Anil) (8:36 JSanders R.N.) BNP Urgent (07:04 09/28/2016 Shaheed HERNANDEZ) (Ack 7:19 Anil) (8:36 JSanders R.N.) D-Dimer Urgent (07:04 09/28/2016 Shaheed HERNANDEZ) (Ack 7:19 Anil) (8:36 JSanders R.N.) Lactate, Serum Urgent (07:04 09/28/2016 Shaheed HERNANDEZ) (Ack 7:19 Anil) (8:36 JSanders R.N.) PCT (Procalcitonin) Urgent (07:04 09/28/2016 Shaheed HERNANDEZ) (Ack 7:19 Anil) (8:36 JSanders R.N.) Oxygen (2 L/min) (NC) (07:04 09/28/2016 Shaheed HERNANDEZ) (7:14 JSimbeck R.N.) Pulse oximeter (07:04 09/28/2016 Shaheed HERNANDEZ) (7:14 AILEENimbeck R.N.) EKG - ER Stat (07:04 09/28/2016 Shaheed HERNANDEZ) (Ack 7:19 Anil) (7:21 KHoerner) Blood Culture (No) (N/A) Urgent (07:12 09/28/2016 Shaheed HERNANDEZ) (Ack 7:19 Anil) (8:36 Alia R.N.) ABG (G) Urgent (07:16 09/28/2016 Shaheed HERNANDEZ) (Ack 7:19 Anil) (8:36 Alia R.N.) PT with INR Urgent (07:24 09/28/2016 Shaheed HERNANDEZ) (Ack 7:26 Anil) (8:36 Alia R.N.) POC Glucose (09:10 09/28/2016 LNations ER Tech1 per protocol) (9:10 LNations ER Tech1) MEDICATION ORDERS: IV FLUIDS: IV Saline Lock (07:04 09/28/2016 Shaheed HERNANDEZ) (7:25 Alia R.N.) ORDER SHEET NOTES: [Electronically signed by Estrella Carbajal R.N. (15:45 09/28/2016)] [Electronically signed by Robin Webb MD (23:08 09/28/2016)] [Electronically locked/signed by Estrella Carbajal R.N. (15:45 09/28/2016)]
--- NOTE | 2016-09-28 09:15 | ED ORDER SUMMARY ---
..... Patient: HIPOLITO BAILEY OrderSheet [facility] VisitID: [id number] [place] [address] 86y, M Registration Date/Time: 09/28/2016 ORDER SHEET Weight: 65.7 kg Allergies: No Known Drug Allergy GENERAL ORDERS: Chest 1V Urgent (07:04 09/28/2016 Shaheed HERNANDEZ) (Ack 7:19 JAYNAoecarlos) (7:48 KHoerner) Rail Splitter (Continuous) (07:04 09/28/2016 Shaheed HERNANDEZ) (7:14 JSimbeck R.N.) Cardiac Panel Stat (07:04 09/28/2016 Shaheed HERNANDEZ) (Ack 7:19 Anil) (8:36 JSanders R.N.) BNP Urgent (07:04 09/28/2016 Shaheed HERNANDEZ) (Ack 7:19 Anil) (8:36 JSanders R.N.) D-Dimer Urgent (07:04 09/28/2016 Shaheed HERNANDEZ) (Ack 7:19 Anil) (8:36 JSanders R.N.) Lactate, Serum Urgent (07:04 09/28/2016 Shaheed HERNANDEZ) (Ack 7:19 Anil) (8:36 JSanders R.N.) PCT (Procalcitonin) Urgent (07:04 09/28/2016 Shaheed HERNANDEZ) (Ack 7:19 Anil) (8:36 JSanders R.N.) Oxygen (2 L/min) (NC) (07:04 09/28/2016 Shaheed HERNANDEZ) (7:14 JSimbeck R.N.) Pulse oximeter (07:04 09/28/2016 Shaheed HERNANDEZ) (7:14 AILEENimbeck R.N.) EKG - ER Stat (07:04 09/28/2016 Shaheed HERNANDEZ) (Ack 7:19 Anil) (7:21 KHoerner) Blood Culture (No) (N/A) Urgent (07:12 09/28/2016 Shaheed HERNANDEZ) (Ack 7:19 Anil) (8:36 Alia R.N.) ABG (G) Urgent (07:16 09/28/2016 Shaheed HERNANDEZ) (Ack 7:19 Anil) (8:36 Alia R.N.) PT with INR Urgent (07:24 09/28/2016 Shaheed HERNANDEZ) (Ack 7:26 Anil) (8:36 Alia R.N.) POC Glucose (09:10 09/28/2016 LNations ER Tech1 per protocol) (9:10 LNations ER Tech1) MEDICATION ORDERS: IV FLUIDS: IV Saline Lock (07:04 09/28/2016 Shaheed HERNANDEZ) (7:25 Alia R.N.) ORDER SHEET NOTES: [Electronically signed by Estrella Carbajal R.N. (15:45 09/28/2016)] [Electronically signed by Robin Webb MD (23:08 09/28/2016)] [Electronically locked/signed by Estrella Carbajal R.N. (15:45 09/28/2016)]
--- NOTE | 2016-09-28 09:15 | ED NURSING NOTES ---
Clinical Report - Nurses [facility] [address] [place] [address] 09/28/2016 6:57 Patient: HIPOLITO BAILEY TRIAGE Triage time 0658. Acuity: LEVEL 2. Chief Complaint: SHORTNESS OF BREATH and DIFFICULTY BREATHING and (anterior chest pressure with inspiration, low spo2 even on O2. Admitted here last week for pneumonia.). 07:12 09/28/16. SEPSIS SCREEN: Sepsis Screen. Negative (no infection suspected/documented). --07:12 Arie Fuentes R.N. 07:02 09/28/16. BP: 100/56 taken while lying. HR: 67. RR: 24. O2 saturation: 96% on non-rebreather at 15 liters/minute. Temp: 98.2 F. Pain level now: 08/22. --07:12 Arie Fuentes R.N. Weight: 65.7 kg. Height/Length: 66 inches. BMI: 23.4. --07:12 Arie Fuentes R.N. Medications Advair Diskus Inhalation 1 puff, 2x a day. Atorvastatin Calcium Oral 40 mg, daily. --07:07 Arie Fuentes R.N. Coreg Oral 3.125 mg, 2x a day. Coumadin Oral MWF and 2.5mg TTHSS, at bedtime. Daliresp Oral (Tablet 500 mcg) 1 tablet, daily. Diabethiderm ext cream, as needed. EpiPen 2-Henry Injection. Furosemide Oral 20 mg, daily. Gabapentin Oral 100 mg, 1-3 tabs, 3x a day as needed, nerve pain. Latanoprost Ophthalmic 1 drop OU . Lisinopril Oral 5 mg, daily. Magnesium Oral 1 cap, 64 mg, 2x a day. Jad krill 30mg. MetFORMIN HCl Oral 1000 mg , 2x a day. Mirapex Oral 0.125 mg, at bedtime. Multivitamin Oral (with vit K 2 tab daily for coumadin up/down). Potassium Oral 10 meq BID. ProAir HFA Inhalation 2 puffs, as needed. Protonix Oral 40 mg, daily. Spiriva HandiHaler Inhalation (Capsule 18 mcg) 1 capsule, daily. Tylenol Oral (Tablet 325 mg) 1 tablet, as needed (every 4 hours). Voltaren Transdermal to feet. WelChol Oral 625 mg, 2 tabs TID. --07:07 Arie Fuentes R.N. Allergies No Known Drug Allergy. --07:07 Arie Fuentes R.N. History Arrived by EMS. Historian: EMS. This started yesterday. No fever or chills. Treatment INSPECTOR SET UP AND LAY OUT: (O2@15L/NRM, 12 lead EKG, IV NS 200ml.). SOCIAL HX: Smoker- current status unknown. No alcohol use or drug use. ABUSE ASSESSMENT: No report of abuse. --07:12 Arie Fuentes R.N. PROBLEMS: Hypomagnesemia. Peripheral Neuropathy. Bradycardia. Carotid bruit. Asbestosis. Obstructive Sleep Apnea. Somnolence. Hyperlipidemia. Aortic valve disorder. Cardiomyopathy. Back Pain. Diabetes Mellitus Type 2. Syncope. Actinic keratosis. Inguinal hernia. Lung Disease. Hemoptysis. Bronchitis. Hypercholesterolemia. Pneumonia. Gastroesophageal Reflux. Tonsillitis. COPD - Chronic Obstructive Pulmonary Disease. Cancer. Myocardial Infarction. Vertigo. Chest Pain. Heart Disease. Hypertension. Gastroesophageal Reflux Disease. --07:09 Arie Fuentes R.N. ADDITIONAL SURGERIES: Aortic Valve Replacement. Bowel Surgery. Coronary Angioplasty. Coronary Artery Bypass Graft. Hernia Repair. Prostatectomy. Valve Replacement. --07:09 Arie Fuentes R.N. Interventions ID band on patient. To treatment room. --07:12 Arie Fuentes R.N. PHYSICAL ASSESSMENT 07:23 09/28/16. To room via stretcher. Patient gowned. GENERAL / NEURO / PSYCH: Alert. RESPIRATORY: Chest nontender. Breath sounds within normal limits. CVS: Cardiac rhythm: 1st degree AV block; (62 atrial rate irregular). Capillary refill less than 2 seconds. GI / : Abdomen soft and nontender. Bowel sounds within normal limits. SKIN: Skin is warm. --07:23 Estrella Carbajal R.N. NURSING PROGRESS NOTES 07:09/28/2016 Site #1 started prior to arrival by EMS via IV in the right antecubital space with an 18g angiocath. --07:25 Estrella Carbajal R.N. 07:24 09/28/16. Oxygen administered. Monitoring of patient in place. Patient gowned. Head of bed elevated. Reassurance given. Two patient identifiers checked. Call light placed in reach. Side rails up x 1. Bed placed in lowest position. Brakes of bed on. Patient ready for evaluation- chart flagged and ED physician notified. --07:24 Estrella Carbajal R.N. late entry -07:10. Cardiac rhythm: normal sinus rhythm. cafeteria monitor, pulse oximeter, end tidal CO2 monitor and NIBP monitor placed on patient; telemetry monitor- Lead II and V5; monitor alarms on. Head of bed elevated. Reassurance given. Call light placed in reach. Bed placed in lowest position. Brakes of bed on. --07:36 Arie Fuentes R.N. 08:20 09/28/16. ( Patient doing well, says he is sleepy and hungry, he would like some black coffee and breakfast, will request if physician ok with this.). --08:20 Estrella Carbajal R.N. 08:18 09/28/16. BP: 122/63 (regular adult cuff) taken on the right arm, while sitting. HR: 72. RR: 24. O2 saturation: 95% on nasal cannula at 5 liters/minute. Pain level now: 0/10. --08:20 Estrella Carbajal R.N. late entry -. Finger stick glucose: 94. --09:10 Amy Odell ER Tech1 ( 2 person assist changing pt depends.). --10:26 Amy Odell ER Tech1 10:33 09/28/16. ( Patient sipping on ice water relaxing). --10:33 Estrella Carbajal R.N. 10:32 09/28/16. BP: 99/56 (regular adult cuff) taken on the right arm, while lying. HR: 66. RR: 28. O2 saturation: 92% on nasal cannula at 5 liters/minute. Pain level now: 0/10. --10:33 Estrella Carbajal R.N. 10:00 09/28/16. BP: 99/56 (regular adult cuff) taken on the right arm, while sitting. HR: 66. O2 saturation: 92% on nasal cannula at 5 liters/minute. --15:40 Estrella Carbajal R.N. 09:30 09/28/16. BP: 93/59. HR: 66. RR: 23. O2 saturation: 91% on nasal cannula at 5 liters/minute. --15:42 Estrella Carbajal R.N. 09:00 09/28/16. BP: 113/80. HR: 88. RR: 22. O2 saturation: 91%. --15:43 Estrella Carbajal R.N. 08:30 09/28/16. BP: 129/61. HR: 79. RR: 24. O2 saturation: 96% on nasal cannula at 5 liters/minute. --15:43 Estrella Carbajal R.N. 08:00 09/28/16. BP: 119/60. HR: 75. RR: 24. O2 saturation: 94% on nasal cannula at 5 liters/minute. --15:44 Estrella Carbajal R.N. 07:30 09/28/16. BP: 96/70. HR: 75. RR: 22. O2 saturation: 99% on nasal cannula at 5 liters/minute. --15:45 Estrella Carbajal R.N. DISPOSITION / DISCHARGE 10:30 09/28/2016 Site #[address] upon admission; patent, no pain and no signs of infection or infiltration. Flushed with 10 mL saline. --11:00 Arie Fuentes R.N. 10:57 09/28/16. Departure time: 1054. Cardiac rhythm: normal sinus rhythm; 1st degree AV block. Condition at departure: improved and stable. Disposition: observation in Acute Care (Room 212). Transported via stretcher by transport team with IV and O2. Patient's personal items include, with pt. --11:00 Arie Fuentes R.N. 10:30 09/28/16. BP: 106/58. HR: 63. RR: 22. O2 saturation: 94% on nasal cannula at 5 liters/minute. Temp: 98.2 F (oral). Pain level now: 08/22. --11:00 Simbeck, Arie, R.N. Locked/Released at 09/28/2016 15:45 by Estrella Carbajal R.N.
--- NOTE | 2016-09-28 09:15 | ED NURSING NOTES ---
Clinical Report - Nurses [facility] [address] [place] [address] 09/28/2016 6:57 Patient: HIPOLITO BAILEY TRIAGE Triage time 0658. Acuity: LEVEL 2. Chief Complaint: SHORTNESS OF BREATH and DIFFICULTY BREATHING and (anterior chest pressure with inspiration, low spo2 even on O2. Admitted here last week for pneumonia.). 07:12 09/28/16. SEPSIS SCREEN: Sepsis Screen. Negative (no infection suspected/documented). --07:12 Arie Fuentes R.N. 07:02 09/28/16. BP: 100/56 taken while lying. HR: 67. RR: 24. O2 saturation: 96% on non-rebreather at 15 liters/minute. Temp: 98.2 F. Pain level now: 08/22. --07:12 Arie Fuentes R.N. Weight: 65.7 kg. Height/Length: 66 inches. BMI: 23.4. --07:12 Arie Fuentes R.N. Medications Advair Diskus Inhalation 1 puff, 2x a day. Atorvastatin Calcium Oral 40 mg, daily. --07:07 Arie Fuentes R.N. Coreg Oral 3.125 mg, 2x a day. Coumadin Oral MWF and 2.5mg TTHSS, at bedtime. Daliresp Oral (Tablet 500 mcg) 1 tablet, daily. Diabethiderm ext cream, as needed. EpiPen 2-Henry Injection. Furosemide Oral 20 mg, daily. Gabapentin Oral 100 mg, 1-3 tabs, 3x a day as needed, nerve pain. Latanoprost Ophthalmic 1 drop OU . Lisinopril Oral 5 mg, daily. Magnesium Oral 1 cap, 64 mg, 2x a day. Jad krill 30mg. MetFORMIN HCl Oral 1000 mg , 2x a day. Mirapex Oral 0.125 mg, at bedtime. Multivitamin Oral (with vit K 2 tab daily for coumadin up/down). Potassium Oral 10 meq BID. ProAir HFA Inhalation 2 puffs, as needed. Protonix Oral 40 mg, daily. Spiriva HandiHaler Inhalation (Capsule 18 mcg) 1 capsule, daily. Tylenol Oral (Tablet 325 mg) 1 tablet, as needed (every 4 hours). Voltaren Transdermal to feet. WelChol Oral 625 mg, 2 tabs TID. --07:07 Arie Fuentes R.N. Allergies No Known Drug Allergy. --07:07 Arie Fuentes R.N. History Arrived by EMS. Historian: EMS. This started yesterday. No fever or chills. 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 SOCIAL HX: Smoker- current status unknown. No alcohol use or drug use. ABUSE ASSESSMENT: No report of abuse. --07:12 Arie Fuentes R.N. PROBLEMS: Hypomagnesemia. Peripheral Neuropathy. Bradycardia. Carotid bruit. Asbestosis. Obstructive Sleep Apnea. Somnolence. Hyperlipidemia. Aortic valve disorder. Cardiomyopathy. Back Pain. Diabetes Mellitus Type 2. Syncope. Actinic keratosis. Inguinal hernia. Lung Disease. Hemoptysis. Bronchitis. Hypercholesterolemia. Pneumonia. Gastroesophageal Reflux. Tonsillitis. COPD - Chronic Obstructive Pulmonary Disease. Cancer. Myocardial Infarction. Vertigo. Chest Pain. Heart Disease. Hypertension. Gastroesophageal Reflux Disease. --07:09 Arie Fuentes R.N. ADDITIONAL SURGERIES: Aortic Valve Replacement. Bowel Surgery. Coronary Angioplasty. Coronary Artery Bypass Graft. Hernia Repair. Prostatectomy. Valve Replacement. --07:09 Arie Fuentes R.N. Interventions ID band on patient. To treatment room. --07:12 Arie Fuentes R.N. PHYSICAL ASSESSMENT 07:23 09/28/16. To room via stretcher. Patient gowned. GENERAL / NEURO / PSYCH: Alert. RESPIRATORY: Chest nontender. Breath sounds within normal limits. CVS: Cardiac rhythm: 1st degree AV block; (62 atrial rate irregular). Capillary refill less than 2 seconds. GI / : Abdomen soft and nontender. Bowel sounds within normal limits. SKIN: Skin is warm. --07:23 Estrella Carbajal R.N. NURSING PROGRESS NOTES 07:09/28/2016 Site #1 started prior to arrival by EMS via IV in the right antecubital space with an 18g angiocath. --07:25 Estrella Carbajal R.N. 07:24 09/28/16. Oxygen administered. Monitoring of patient in place. Patient gowned. Head of bed elevated. Reassurance given. Two patient identifiers checked. Call light placed in reach. Side rails up x 1. Bed placed in lowest position. Brakes of bed on. Patient ready for evaluation- chart flagged and ED physician notified. --07:24 Estrella Carbajal R.N. late entry -07:10. Cardiac rhythm: normal sinus rhythm. surveillance system monitor, pulse oximeter, end tidal CO2 monitor and NIBP monitor placed on patient; school lunch monitor- Lead II and V5; monitor alarms on. Head of bed elevated. Reassurance given. Call light placed in reach. Bed placed in lowest position. Brakes of bed on. --07:36 Arie Fuentes R.N. 08:20 09/28/16. ( Patient doing well, says he is sleepy and hungry, he would like some black coffee and breakfast, will request if physician ok with this.). --08:20 Estrella Carbajal R.N. 08:18 09/28/16. BP: 122/63 (regular adult cuff) taken on the right arm, while sitting. HR: 72. RR: 24. O2 saturation: 95% on nasal cannula at 5 liters/minute. Pain level now: 0/10. --08:20 Estrella Carbajal R.N. late entry -. Finger stick glucose: 94. --09:10 Amy Odell ER Tech1 ( 2 person assist changing pt depends.). --10:26 Amy Odell ER Tech1 10:33 09/28/16. ( Patient sipping on ice water relaxing). --10:33 Estrella Carbajal R.N. 10:32 09/28/16. BP: 99/56 (regular adult cuff) taken on the right arm, while lying. HR: 66. RR: 28. O2 saturation: 92% on nasal cannula at 5 liters/minute. Pain level now: 0/10. --10:33 Estrella Carbajal R.N. 10:00 09/28/16. BP: 99/56 (regular adult cuff) taken on the right arm, while sitting. HR: 66. O2 saturation: 92% on nasal cannula at 5 liters/minute. --15:40 Estrella Carbajal R.N. 09:30 09/28/16. BP: 93/59. HR: 66. RR: 23. O2 saturation: 91% on nasal cannula at 5 liters/minute. --15:42 Estrella Carbajal R.N. 09:00 09/28/16. BP: 113/80. HR: 88. RR: 22. O2 saturation: 91%. --15:43 Estrella Carbajal R.N. 08:30 09/28/16. BP: 129/61. HR: 79. RR: 24. O2 saturation: 96% on nasal cannula at 5 liters/minute. --15:43 Estrella Carbajal R.N. 08:00 09/28/16. BP: 119/60. HR: 75. RR: 24. O2 saturation: 94% on nasal cannula at 5 liters/minute. --15:44 Estrella Carbajal R.N. 07:30 09/28/16. BP: 96/70. HR: 75. RR: 22. O2 saturation: 99% on nasal cannula at 5 liters/minute. --15:45 Estrella Carbajal R.N. DISPOSITION / DISCHARGE 10:30 09/28/2016 Site #[address] upon admission; patent, no pain and no signs of infection or infiltration. Flushed with 10 mL saline. --11:00 Arie Fuentes R.N. 10:57 09/28/16. Departure time: 1054. Cardiac rhythm: normal sinus rhythm; 1st degree AV block. Condition at departure: improved and stable. Disposition: observation in Acute Care (Room 212). Transported via stretcher by transport team with IV and O2. Patient's personal items include, with pt. --11:00 Arie Fuentes R.N. 10:30 09/28/16. BP: 106/58. HR: 63. RR: 22. O2 saturation: 94% on nasal cannula at 5 liters/minute. Temp: 98.2 F (oral). Pain level now: 08/22. --11:00 Simbeck, Arie, R.N. Locked/Released at 09/28/2016 15:45 by Estrella Carbajal R.N.
--- NOTE | 2016-09-28 10:09 | DIAGNOSTIC IMAGING REPORT ---
PROCEDURE: XR CHEST 1 VIEW INDICATION: Chest pain shortness of breath. TECHNIQUE: Portable AP view (0750 hours). COMPARISON: Compared to chest x-rays on 09/23/2016, 09/18/2016, and 05/22/2016. FINDINGS: Status post median sternotomy, aortic valve prosthesis, and probable coronary artery bypass graft. There is extensive chronic parenchymal scarring in bilateral lungs (right greater than left) Borderline cardiomegaly and congestion. Mediastinum is normal. Thorax is unchanged. IMPRESSION: 1. Status post aortic valve prosthesis and probable coronary artery bypass graft. 2. Severe chronic parenchymal scarring in the in the lungs which partially limits evaluation, although underlying pneumonia should still be considered ( e.g., viral, bacterial, aspiration). 3. Borderline cardiomegaly and congestion. As such, one should consider the possibility of occult congestive heart failure. 4. Findings discussed with Dr. Agustin Bridges.
[2016-09-28 11:23] VITALS: BP 106/64
[2016-09-28 15:43] VITALS: BP 99/61
[2016-09-28 18:52] VITALS: BP 129/66
--- NOTE | 2016-09-28 23:09 | ED MED RECONCILIATION SUMMARY ---
Patient: HIPOLITO BAILEY Medication Reconciliation Report [facility] VisitID: [id number] [address] [place] [address] 86y, M Registration Date/Time: 09/28/2016 Weight: 65.7 kg Height/Length: 66 in. BMI: 23.4 ALLERGIES: No Known Drug Allergy The patient's Home Medications are listed below: THE FOLLOWING MEDICATIONS NEED TO BE RECONCILED: Advair Diskus Inhalation 1 puff, 2x a day Atorvastatin Calcium Oral 40 mg, daily Coreg Oral 3.125 mg, 2x a day Coumadin Oral MWF and 2.5mg TTHSS, at bedtime Daliresp Oral (500 mcg) 1 tablet, daily Diabethiderm ext cream EpiPen 2-Henry Injection Furosemide Oral 20 mg, daily Gabapentin Oral 100 mg, 1-3 tabs, 3x a day, nerve pain Latanoprost Ophthalmic 1 drop OU Lisinopril Oral 5 mg, daily Magnesium Oral 1 cap, 64 mg, 2x a day Jad krill 30mg MetFORMIN HCl Oral 1000 mg , 2x a day Mirapex Oral 0.125 mg, at bedtime Multivitamin Oral, with vit K 2 tab daily for coumadin up/down Potassium Oral 10 meq BID ProAir HFA Inhalation 2 puffs Protonix Oral 40 mg, daily Spiriva HandiHaler Inhalation (18 mcg) 1 capsule, daily Tylenol Oral (325 mg) 1 tablet, every 4 hours Voltaren Transdermal to feet WelChol Oral 625 mg, 2 tabs TID The source(s) of the original Home Medication information: Not obtained. The following Medications were given to the patient in the Emergency Department: None. The following Medications were prescribed to the patient: None.
--- NOTE | 2016-09-28 23:09 | ED MAR SUMMARY ---
..... Medication Administration Record [facility] [address], [place] [id number] Patient: HIPOLITO BAILEY Visit ID: [id number] 86y, M Weight: 65.7 kg Height/Length: 66 in BMI: 23.4 ALLERGIES: No Known Drug Allergy
--- NOTE | 2016-09-28 23:09 | ED MED RECONCILIATION SUMMARY ---
Patient: HIPOLITO BAILEY Medication Reconciliation Report [facility] VisitID: [id number] [address] [place] [address] 86y, M Registration Date/Time: 09/28/2016 Weight: 65.7 kg Height/Length: 66 in. BMI: 23.4 ALLERGIES: No Known Drug Allergy The patient's Home Medications are listed below: THE FOLLOWING MEDICATIONS NEED TO BE RECONCILED: Advair Diskus Inhalation 1 puff, 2x a day Atorvastatin Calcium Oral 40 mg, daily Coreg Oral 3.125 mg, 2x a day Coumadin Oral MWF and 2.5mg TTHSS, at bedtime Daliresp Oral (500 mcg) 1 tablet, daily Diabethiderm ext cream EpiPen 2-Henry Injection Furosemide Oral 20 mg, daily Gabapentin Oral 100 mg, 1-3 tabs, 3x a day, nerve pain Latanoprost Ophthalmic 1 drop OU Lisinopril Oral 5 mg, daily Magnesium Oral 1 cap, 64 mg, 2x a day Jad krill 30mg MetFORMIN HCl Oral 1000 mg , 2x a day Mirapex Oral 0.125 mg, at bedtime Multivitamin Oral, with vit K 2 tab daily for coumadin up/down Potassium Oral 10 meq BID ProAir HFA Inhalation 2 puffs Protonix Oral 40 mg, daily Spiriva HandiHaler Inhalation (18 mcg) 1 capsule, daily Tylenol Oral (325 mg) 1 tablet, every 4 hours Voltaren Transdermal to feet WelChol Oral 625 mg, 2 tabs TID The source(s) of the original Home Medication information: Not obtained. The following Medications were given to the patient in the Emergency Department: None. The following Medications were prescribed to the patient: None.
--- NOTE | 2016-09-28 23:09 | ED MAR SUMMARY ---
..... Medication Administration Record [facility] [address], [place] [id number] Patient: HIPOLITO BAILEY Visit ID: [id number] 86y, M Weight: 65.7 kg Height/Length: 66 in BMI: 23.4 ALLERGIES: No Known Drug Allergy
--- NOTE | 2016-09-28 23:09 | ED DISCHARGE INSTRUCTIONS ---
Patient: HIPOLITO BAILEY General Instructions [facility] VisitID: [id number] [address] [place] [address] 86y, M Registration Date/Time: 09/28/2016 Acute dyspnea with CHF and resolving pneumonia Chest pressure r/o anginal equivalent. Pre-renal azotemia. (Electronically signed by Robin Webb MD 09/28/2016 23:08)
--- NOTE | 2016-09-28 23:09 | ED DISCHARGE INSTRUCTIONS ---
Patient: HIPOLITO BAILEY General Instructions [facility] VisitID: [id number] [address] [place] [address] 86y, M Registration Date/Time: 09/28/2016 Acute dyspnea with CHF and resolving pneumonia Chest pressure r/o anginal equivalent. Pre-renal azotemia. (Electronically signed by Robin Webb MD 09/28/2016 23:08)
[2016-09-28 23:15] VITALS: BP 114/66
[2016-09-29 02:25] VITALS: BP 114/56
[2016-09-29 06:53] VITALS: BP 138/81
--- NOTE | 2016-09-29 07:35 | History & Physical Report ---
Admission Admit Date 09/28/16 Information Source Information Source: Self Reliability: Fair History Chief Complaint shortness of breath History of Present Illness Patient is a 86 year old male with an extensive past medical history as listed below that is presenting with shortness of breath for two days. As per patient he had been in his usual state of health when he had a sudden onset of dyspnea. The dyspnea occured during the night time during the time the patient was attempting to sleep. Unclear to as whether this occured during lying down or not however the patient became breathless and was unable to return to his normal breathing pattern. Patients dyspnea continued onto the next day, however there was infrequent coughing and when it was productive it was comprised of clear foamy sputum, without any evidence of blood. Additionally patient was finding that his oxygen saturation was low as per his own oxygen meter that was provided to him. Patient alerted the facility staff who recommended that the patient be brought to the ER. Patient was found to have signs of worsening heart failure while in the ER. Patient while in the ER was given diuretics with very good results. Patient additionally was saturating appropriately at his home oxygen level, and did not have further symptoms. Lastly admitting physician had a coversation with the patients primary care provider. It appears as if patients last echo showed evidence of elveated pulmonary artery pressure and incompetent valves. Patient was brought to acute care further monitored and it was seen that the patient was stable. Patient History 1. CHF (congestive heart failure) 2. Dyspnea 3. Chest pain 4. Femoral hernia 5. Left inguinal hernia 6. Diabetes 7. COPD mixed type Social History SOCIAL HISTORY: He has got a [id number] smoking history, quitting in 1980. He is retired from the [employer]. , 2 children, 2 grandchildren, both girls. Family History Family history was reviewed; no changes noted. Medications and Allergies Medications Home Medication 1. Fluoxetine 10 mg p.o. daily. 2. Gabapentin 300 mg 1-2 p.o. t.i.d. p.r.n. nerve pain. 3. Voltaren gel 2 g to bottom of feet p.r.n. for pain. 4. Mirapex 0.25 mg 1-2 at bedtime for restless leg. 5. Advair Diskus 250/50 one click b.i.d. 6. Welchol 650 mg 2 p.o. t.i.d. 7. Metformin 1000 mg b.i.d. 8. Daliresp 500 mg daily. 9. Spiriva 18 mcg daily. 10. ProAir 2 puffs q.4 hours p.r.n. wheezing. 11. KCl 10 mEq p.o. b.i.d. 12. Coreg 3.125 mg 1 p.o. b.i.d. 13. Protonix 40 mg p.o. daily. 14. Furosemide 20 mg p.o. daily. 15. Coumadin 2.5 mg daily. 16. Atorvastatin 40 mg p.o. daily. 17. Magnesium capsule 264 mg 1 p.o. b.i.d. 18. Lisinopril 5 mg p.o. daily. Current Medications Sig/Jazmyne Start time Last Medication Dose Route Stop Time Status Admin Atorvastatin Calcium 40 MG DAILY 09/29 0900 AC PO Betamethasone/ See Dose DAILY 09/29 0900 AC Clotrimazole Insts (1) TOP Fluoxetine HCl 10 MG QAM 09/29 0900 AC PO Furosemide 20 MG QAM 09/29 0900 AC PO Lisinopril 5 MG QAM 09/29 0900 AC PO Pantoprazole Sodium 40 MG DAILY@0600 09/29 0900 AC Sesquihydrate PO Albuterol Sulfate 2.5 MG QID 09/28 2200 AC 09/28 IN 2150 Gabapentin 300 MG TID 09/28 2200 AC 09/29 PO 0716 Latanoprost See Dose QHS 09/28 2100 AC Insts (2) OP Acetaminophen 325 MG Q4H PRN 09/28 1815 AC PO Acetaminophen/ See Dose Q4H PRN 09/28 1815 AC Hydrocodone Bitart Insts (3) PO Carvedilol 3.125 MG BIDWC 09/28 1812 AC 09/28 PO 2123 Ondansetron HCl 4 MG Q4H PRN 09/28 0930 AC IV Dose Instructions: (1)Betamethasone/Clotrimazole: TO AFFECTED AREA (2)Latanoprost: 1 DROP IN EACH EYE (3)Acetaminophen/Hydrocodone Bitart: 1-2 TAB Allergies Coded Allergies: NKA (09/28/16) Review of Systems Constitutional Denies: Fever, Chills, Sweats, Weakness, Malaise, Other. Eyes Denies: Pain, Vision Change, Conjunctival Inflammation, Eyelid Inflammation, Redness, Other. ENT Denies: Ear Pain, Ear Discharge, Nose Pain, Nasal Discharge, Nasal Congestion, Mouth Pain, Mouth Swelling, Throat Pain, Throat Swelling, Other. Respiratory Cough, SOB w/exertion, Wheezing. Denies: Dry, Hemoptysis, Pleuritic Pain, Sputum, Other. Cardiovascular Denies: Chest Pain, Palpitations, Orthopnea, PND, Edema, Light-headedness, Other. Gastrointestinal Denies: Nausea, Vomiting, Abdominal Pain, Diarrhea, Constipation, Melena, Hematochezia, Other. Genitourinary Denies: Dysuria, Frequency, Incontinence, Hematuria, Retention, Other. Musculoskeletal Denies: Neck Pain, Shoulder Pain, Arm Pain, Back Pain, Hand Pain, Leg Pain, Foot Pain, Other. Skin Denies: Rash, Lesions, Jaundice, Bruising, Other. Neurological Denies: Weakness, Numbness, Incoordination, Change in speech, Confusion, Seizures, Other. Physical Exam Vital Signs / I&Os Vital Signs Date Time Temp Pulse Resp B/P Pulse O2 O2 Flow FiO2 Ox Delivery Rate 09/29 0653 97.7 78 20 138/81 91 Nasal 5.0 Cannula 09/29 0225 97.9 65 20 114/56 92 Nasal 5.0 Cannula 09/29 0154 Nasal 5.0 Cannula 09/28 2315 98.2 59 20 114/66 93 Nasal 5.0 Cannula 09/28 2151 5.0 09/28 2123 80 09/28 1852 97.5 72 20 129/66 91 Nasal 5.0 Cannula 09/28 1543 97.3 67 18 99/61 96 Nasal 5.0 Cannula 09/28 1400 5.0 09/28 1145 96 Nasal 5.0 Cannula 09/28 1123 98.1 68 21 106/64 91 Nasal 4.0 Cannula 09/28 1100 Nasal 5.0 Cannula I&O 09/28 0800 09/28 1600 09/29 0000 Intake Total 240 200 Output Total 150 375 Balance 90 -175 General Appearance Alert, Oriented X3, No acute distress HEENT Atraumatic, Moist mucous membranes Lungs - bilateral ronchi, no wheezes appreciated, good air exchange Cardiovascular - diastolic murmur III/V - possible S3 - systolic ejection murmur transmission to apex Abdomen Soft, No tenderness, No guarding, No masses Extremities No cyanosis, No edema, Normal pulses, No tenderness, Deep's sign negative Skin No Breakdown, No Significant Lesions Neurological Normal tone, Sensation intact, Cranial nerves intact, Strength 5/5 x4 ext's, No lateralizing signs LAB Results Laboratory Tests 09/29 0505 Chemistry Plasma Sodium (136 - 145 mmol/L) 142 Plasma Potassium (3.5 - 5.1 mmol/L) 3.9 Plasma Chloride (98 - 107 mmol/L) 109 CO2 (Enzymatic) (21 - 32 mmol/L) 23 BUN (7 - 18 mg/dL) 35 Creatinine (0.6 - 1.3 mg/dL) 1.0 Est GFR ( Amer) (mL/min) >60 Est GFR (Non-Af Amer) (mL/min) >60 Glucose (70 - 110 mg/dL) 110 Plasma Calcium (8.5 - 10.1 mg/dL) 8.3 Plasma Magnesium (1.8 - 2.4 mg/dL) 1.4 Total Bilirubin (0.0 - 1.0 mg/dL) 0.4 AST (15 - 37 U/L) 34 ALT (12 - 78 U/L) 41 Alkaline Phosphatase (46 - 116 U/L) 95 Total Protein (6.4 - 8.2 g/dL) 6.4 Albumin (3.3 - 5.0 g/dL) 2.7 Hematology WBC (4.5 - 11.5 K/uL) 8.5 RBC (4.50 - 5.90 M/uL) 4.24 Hgb (13.5 - 17.5 gm/dL) 13.6 Hct (41.0 - 53.0 %) 40.4 MCV (80 - 100 fL) 95 MCH (26 - 34 pg) 32 RDW (11.6 - 14.8 %) 14.7 Neut % (Auto) (50 - 75 %) 65.7 Lymph % (Auto) (25 - 40 %) 21.0 [place] % (Auto) (3 - 14 %) 8.9 Eos % (Auto) (0 - 4 %) 4.0 Baso % (Auto) (0 - 2 %) 0.4 Plt Count, EDTA (150 - 400 K/uL) 139 PUBS MCHC (31 - 37 g/dL) 34 Assessment and Plan Problem List 1. CHF (congestive heart failure) Plan - Pt has an established history of chf - given this current presentation and information provided this appears to be chf exacerbation secondary to decreased valve function - pt will have initial improvement of dyspnea with gentle diuresis however aggressive diuresis will cause paradoxical symptomology - pt will ultimately need valve replacement - will continue to monitor pt and resume home medication - fluid restriction to 2L for the time being 2. Dyspnea Plan - improved - pt is saturating well on his home level of 5L - pts breathing has improved with gentle diuresis in the ER - will provide breathing treatments as necessary - no role for antibiotics 3. Diabetes Plan - will hold metformin - c/w sliding scale while in house 4. COPD mixed type Plan - breathing treatments as needed - maintain patient on 5L nc - alert hospitalist if sudden decompensation - no role for steroids 5. Pneumonia Plan - chest films reviewed with radiologist - pt does not appear to have pneumonia - infiltrates seen are chronic scarring - can not exclude minimal pleural effusions at the base
--- NOTE | 2016-09-29 07:48 | Progress Note ---
Subjective General Patient states that he is feeling much better. Couldn't get O2 up yesterday but now is doing better. No cp, chronic SOB. Physical Exam Vital Signs / I&Os Vital Signs Date Time Temp Pulse Resp B/P Pulse O2 O2 Flow FiO2 Ox Delivery Rate 09/29 0653 97.7 78 20 138/81 91 Nasal 5.0 Cannula 09/29 0225 97.9 65 20 114/56 92 Nasal 5.0 Cannula 09/29 0154 Nasal 5.0 Cannula 09/28 2315 98.2 59 20 114/66 93 Nasal 5.0 Cannula 09/28 2151 5.0 09/28 2123 80 09/28 1852 97.5 72 20 129/66 91 Nasal 5.0 Cannula 09/28 1543 97.3 67 18 99/61 96 Nasal 5.0 Cannula 09/28 1400 5.0 09/28 1145 96 Nasal 5.0 Cannula 09/28 1123 98.1 68 21 106/64 91 Nasal 4.0 Cannula 09/28 1100 Nasal 5.0 Cannula I&O 09/29 0000 09/28 1600 09/28 0800 Intake Total 200 240 Output Total 375 150 Balance -175 90 General Appearance Alert, Cooperative HEENT Normal exam Cardiovascular Regular rate and rhythm, Normal S1 and S2 Abdomen Soft, No tenderness Extremities No edema LAB Results Laboratory Tests 09/29 0505 Chemistry Plasma Sodium (136 - 145 mmol/L) 142 Plasma Potassium (3.5 - 5.1 mmol/L) 3.9 Plasma Chloride (98 - 107 mmol/L) 109 CO2 (Enzymatic) (21 - 32 mmol/L) 23 BUN (7 - 18 mg/dL) 35 Creatinine (0.6 - 1.3 mg/dL) 1.0 Est GFR ( Amer) (mL/min) >60 Est GFR (Non-Af Amer) (mL/min) >60 Glucose (70 - 110 mg/dL) 110 Plasma Calcium (8.5 - 10.1 mg/dL) 8.3 Plasma Magnesium (1.8 - 2.4 mg/dL) 1.4 Total Bilirubin (0.0 - 1.0 mg/dL) 0.4 AST (15 - 37 U/L) 34 ALT (12 - 78 U/L) 41 Alkaline Phosphatase (46 - 116 U/L) 95 Total Protein (6.4 - 8.2 g/dL) 6.4 Albumin (3.3 - 5.0 g/dL) 2.7 Hematology WBC (4.5 - 11.5 K/uL) 8.5 RBC (4.50 - 5.90 M/uL) 4.24 Hgb (13.5 - 17.5 gm/dL) 13.6 Hct (41.0 - 53.0 %) 40.4 MCV (80 - 100 fL) 95 MCH (26 - 34 pg) 32 RDW (11.6 - 14.8 %) 14.7 Neut % (Auto) (50 - 75 %) 65.7 Lymph % (Auto) (25 - 40 %) 21.0 [place] % (Auto) (3 - 14 %) 8.9 Eos % (Auto) (0 - 4 %) 4.0 Baso % (Auto) (0 - 2 %) 0.4 Plt Count, EDTA (150 - 400 K/uL) 139 PUBS MCHC (31 - 37 g/dL) 34 Assessment and Plan Problem List 1. COPD mixed type Plan COPD chronic and if minimal insult to lungs has very low O2 and "can't breathe. " Feels he is doing much better this am. Was great on Thursday then Thursday couldn't get his O2 sat back up. 2. Aortic valve replaced Plan Has AVR and with INR that we are checking on coumadin. Will have a check on CT chest angiogram 3. Dyspnea Plan Has improvement this am. Likely d/c back to AHR today 4. CHF (congestive heart failure) Plan Is post lasix.
[2016-09-29] MEDS ORDERED: FUROSEMIDE20 MG PO (07:51)
--- NOTE | 2016-09-29 07:53 | Provider's Discharge Care Plan ---
Problem, Goal, Plan Problem List 1. CHF (congestive heart failure) Instructions: Take meds as directed, Increase on lasix 2. COPD mixed type Instructions: Take meds as directed 3. Aortic valve replaced Instructions: Take meds as directed, check INR tomorrow
[2016-09-29] MEDS ORDERED: COUMADIN3 MG PO (07:54)
--- NOTE | 2016-09-29 07:56 | Provider's Discharge Care Plan ---
Problem, Goal, Plan Problem List 1. Aortic valve replaced Instructions: Hold coumadin tonight then resume and re check INR Thursday
--- NOTE | 2016-09-29 07:56 | Provider's Discharge Care Plan ---
Problem, Goal, Plan Problem List 1. Aortic valve replaced Instructions: Hold coumadin tonight then resume and re check INR Thursday
--- NOTE | 2016-09-29 10:43 | DIAGNOSTIC IMAGING REPORT ---
PROCEDURE: CTA THORAX WITH CONTRAST INDICATION: Chest pain, shortness of breath TECHNIQUE: 120 ml of Isovue 370 was injected intravenously and axial images were obtained of the chest with 3D sagittal and coronal MIP reconstructions. COMPARISON: Chest x-ray 09/28/2016 FINDINGS: Median sternotomy changes are present. Status post aortic valvuloplasty and CABG. Normal opacification of the pulmonary arterial tree without filling defect. The right and left main pulmonary arteries are both dilated measuring about 3.5 cm on the right and 3.6 cm on the left. Thoracic aorta is normal caliber with moderate atherosclerotic calcification. The great vessels demonstrate a normal branching pattern. Heart is moderately enlarged, particularly the right atrium. No pericardial effusion. There is 15 mm enlarged prevascular lymph node surrounded by a few shoddy lymph nodes. There are mildly enlarged pretracheal lymph nodes, and mild diffuse thickening in the hilar regions bilaterally. The esophagus is normal in caliber without hiatal hernia. The thyroid gland is normal. The lungs demonstrate bilateral upper lobe random central lobular cystic and bullous emphysematous changes, occasional scattered peripheral subpleural cystic changes and irregular scarring resulted and disordered architecture. There is a prominent parenchymal scar in the right upper lobe with associated punctate calcification. There is ground-glass opacity, subpleural cystic change, and interstitial thickening peripherally bilaterally involving both posterior lower lungs. Scattered punctate calcifications. Punctate calcifications are seen Paraseptal bullous emphysematous changes are present in the superior segment of both lower lobes and along the right major fissure. There is pleural tethering bilaterally resulting in slight prominence of the epicardial and subpleural fat. There is fairly extensive peribronchial thickening surrounding lower lobe airways bilaterally. No pleural effusions or pneumothorax. The liver demonstrates a cirrhotic morphology with hypertrophy of the left lobe and atrophy of the right lobe. The gallbladder surgically absent. The spleen size is normal. There is mild diffuse stranding throughout the peritoneal and retroperitoneal fat. Degenerative endplate changes throughout the osseous structures. IMPRESSION: 1. No pulmonary embolus. 2. Fairly extensive interstitial disease including emphysematous changes, diffuse peripheral fibrosis, architectural distortion, and peribronchial thickening. An acute on chronic condition should be considered such as acute bronchitis superimposed on interstitial lung disease. Differential diagnosis includes usual interstitial pneumonia, respiratory bronchiolitis, or desquamative interstitial pneumonia. No dense alveolar consolidations to suggest typical pneumonia. 3. Cardiomegaly and signs of pulmonary artery hypertension supports the diagnosis of chronic disease, particularly COPD. No definite acute CHF. 4. Post aortic valvuloplasty and CABG. 5. Upper abdominal changes of hepatic cirrhosis and cholecystectomy. 6. Findings called to Dr. Vila.
== END 2016-09-29 13:10 ==
LOC: ED SRH 06:57 → TRANS SRH 09:15 → ACUTE2 SRH 11:00
PROVIDERS: ADMIT Emergency Medicine
DX: I50.9 Heart failure, unspecified (principal); R09.02 Hypoxemia; I38 Endocarditis, valve unspecified; R39.2 Extrarenal uremia; E11.42 Type 2 diabetes mellitus with diabetic polyneuropathy; G47.33 Obstructive sleep apnea (adult) (pediatric); Z95.2 Presence of prosthetic heart valve; J44.9 Chronic obstructive pulmonary disease, unspecified; I25.10 Atherosclerotic heart disease of native coronary artery without angina pectoris; Z95.1 Presence of aortocoronary bypass graft; Z95.5 Presence of coronary angioplasty implant and graft; Z79.84 Long term (current) use of oral hypoglycemic drugs
CPT/HCPCS: 29230; 90065; 90074; 90098; 90100; 90616; 91320; 91556; 92031; 92610; 92720; 93004; 94060; 95059

== ENCOUNTER 2016-11-05 11:42 | Inpatient (IN) | payer OTHER, BC ==
[~2016-11-05] VITALS: Ht 167.6 cm; Wt 63.4 kg
--- NOTE | 2016-11-05 13:09 | DIAGNOSTIC IMAGING REPORT ---
PROCEDURE: XR CHEST 1 VIEW INDICATION: SHORTNESS OF BREATH TECHNIQUE: Portable AP view 12:33 p.m. COMPARISON: Chests 09/2809/18/2016 and 05/22/2015 FINDINGS: New right upper lobe and right lower lobe infiltrate, but similar to chest x-ray 6 weeks ago. Extensive scarring in the left lung base is unchanged. Stable blunting of the left costophrenic angle. Median sternotomy, CABG and valvuloplasty. Heart size and mediastinum are normal. Prominence of the pulmonary arteries. Mild chronic lower thoracic spine compression fractures with moderate degenerative changes. Cholecystectomy. IMPRESSION: 1. New right upper lobe and right lower lobe infiltrates. Could represent interstitial edema secondary to CHF. 2. Extensive pulmonary parenchymal scarring 3. CABG and valvuloplasty 4. Results were called to Dr. Valencia at 01:00 p.m.
--- NOTE | 2016-11-05 14:56 | ED ORDER SUMMARY ---
..... Patient: HIPOLITO BAILEY OrderSheet [facility] VisitID: [id number] [address] [place] [address] 86y, M Registration Date/Time: 11/05/2016 ORDER SHEET Weight: 62.5 kg Allergies: No Known Drug Allergy GENERAL ORDERS: Chest 1V Urgent (12:25 11/05/2016 Liz Ro) (Ack 12:29 LNations ER Tech1) (12:36 JSanders R.N.) Cardiac Panel Stat (12:25 11/05/2016 Liz Ro) (Ack 12:29 LNations ER Tech1) (12:36 JSanders R.N.) BNP Urgent (12:25 11/05/2016 Liz Ro) (Ack 12:29 LNations ER Tech1) (12:36 JSanders R.N.) D-Dimer Urgent (12:25 11/05/2016 Liz Ro) (Ack 12:29 LNations ER Tech1) (12:36 JSanders R.N.) UA-Culture if indicated Urgent (12:25 11/05/2016 Liz Ro) (Ack 12:29 LNations ER Tech1) (14:38 JBoardley R.N.) ABG (G) Urgent (12:25 11/05/2016 Liz Ro) (Ack 12:29 LNations ER Tech1) (12:48 JSanders R.N.) Blood Culture (No) (N/A) Urgent (13:39 11/05/2016 Liz Ro) (Ack 13:48 LNations ER Tech1) (14:13 JSanders R.N.) Lactic Acid for Sepsis Protocol Urgent (13:41 11/05/2016 Liz Ro) (Ack 13:48 LNations ER Tech1) (14:13 JSanders R.N.) PCT (Procalcitonin) Urgent (13:41 11/05/2016 Liz Ro) (Ack 13:48 LNations ER Tech1) (14:13 JSanders R.N.) PTT Urgent (13:42 11/05/2016 Liz Ro) (Ack 13:48 LNations ER Tech1) (14:13 AILEENanders R.N.) PT with INR Urgent (13:42 11/05/2016 Liz Ro) (Ack 13:48 LNations ER Tech1) (14:13 AILEENanders R.N.) - (Magnesium Oxide 400 mg PO x 1 now) (13:57 11/05/2016 Liz Ro) (Ack 14:13 AILEENanders R.N.) (Cancelled: Physician Order14:35 Liz Ro) MEDICATION ORDERS: - (Magnesium Oxide 400 mg PO x 1 now.) (14:35 11/05/2016 Liz Ro) (Ack 14:42 Mariana R.N.) (14:56 Sukhjinders R.N.) IV FLUIDS: IV Saline Lock (12:25 11/05/2016 Liz Ro) (12:26 Alia R.N.) Lasix IV 40 mg (NOW) (13:40 11/05/2016 Liz Ro) (Ack 13:43 Nina-Adilia R.N.) (14:14 Sukhjinders R.N.) Zosyn IV 4.5 gm/100mL (NOW) (13:40 11/05/2016 Liz Ro) (Ack 13:43 Nina-Adilia R.N.) (14:53 Sukhjinders R.N.) Levaquin IV 750 mg/150 mL (NOW) (13:40 11/05/2016 Liz Ro) (Ack 13:43 Nina-Adilia R.N.) (14:15 AILEENanders R.N.) Vancomycin IV 1 gm/200mL (NOW) (13:41 11/05/2016 Liz Ro) (Ack 13:43 Nina-Adilia R.N.) (14:54 AILEENanders R.N.) ORDER SHEET NOTES: [Electronically signed by Estrella Carbajal R.N. (17:03 11/05/2016)] [Electronically signed by Miguelito Valencia Dr. (17:44 11/05/2016)] [Electronically locked/signed by Estrella Carbajal R.N. (17:03 11/05/2016)]
--- NOTE | 2016-11-05 14:56 | ED CLINICAL REPORT ---
Clinical Report - Physicians/Mid Levels [facility] [address] [place] [address] 11/05/2016 11:42 Patient: HIPOLITO BAILEY Arrived- By ambulance. Historian- patient. HISTORY OF PRESENT ILLNESS Chief Complaint: HISTORY OF CHRONIC OBSTRUCTIVE PULMONARY DISEASE and CONGESTIVE HEART FAILURE. This started today and is still present. It was gradual in onset and has been constant. The dyspnea is described as moderate. The dyspnea is worsened by walking and exertion. No improvement of dyspnea with rest or oxygen. The patient has had sputum production, a cough, wheezing, dyspnea on exertion and orthopnea. He has had dizziness. No fever, sweating episodes, chills or chest pain or discomfort. No calf pain, foot swelling or palpitations. Similar symptoms previously: Many times. Recent medical care: Not recently seen/assessed. REVIEW OF SYSTEMS No nasal discharge, nausea, vomiting, abdominal pain or headache. No difficulty with urination. He experienced syncope. All systems otherwise negative, except as recorded above. PAST HISTORY Hypomagnesemia. Post-Op Complications. Peripheral Neuropathy. Bradycardia. Carotid bruit. Asbestosis. Obstructive Sleep Apnea. Somnolence. Hyperlipidemia. Aortic valve disorder. Cardiomyopathy. Back Pain. Diabetes Mellitus Type 2. Neuropathy. Syncope. Actinic keratosis. Inguinal hernia. Shoulder pain. Hip pain. Lung Disease. Hemoptysis. Bronchitis. Pneumonia. Gastroesophageal Reflux. Tonsillitis. COPD - Chronic Obstructive Pulmonary Disease. Cancer. Myocardial Infarction. Vertigo. Heart Disease. Sleep Apnea. Hypertension. Gastroesophageal Reflux Disease. . ADDITIONAL SURGERIES: Aortic Valve Replacement. Bowel Surgery. Coronary Angioplasty. Coronary Artery Bypass Graft. Hernia Repair. Prostatectomy. Valve Replacement. -. SOCIAL HISTORY Former smoker. No alcohol use or drug use. ADDITIONAL NOTES The nursing notes have been reviewed. PHYSICAL EXAM Vital Signs: 11/05/2016 11:48 BP: 106/68. HR: 79. RR: 22. O2 saturation: 83%. Temp: 98.3 F. Pain level now: 0/10. Have been reviewed. Blood pressure normal. Heart rate normal. Tachypneic. Temperature normal. Oxygen saturation low. Appearance: Alert. No acute distress. Eyes: Eyes normal inspection. ENT: The mucous membranes are not dry. Neck: No jugular venous distention. CVS: Normal heart rate and rhythm. Heart sounds normal. Respiratory: Mild respiratory distress with accessory muscle use. Mildly prolonged expirations. Mild rales present in the bases bilaterally; rales in the right upper lung posteriorly. No wheezes. Abdomen: Soft and nontender. No organomegaly. Skin: Skin warm and dry. Normal skin color. No rash. Extremities: No lower extremity edema. Neuro: Oriented X 3. No motor deficit. LABS, X-RAYS, AND EKG EKG: EKG time: (1205). No acute process. No acute ischemia. Normal sinus rhythm. Rate: 81. Normal P waves. First-degree atrioventricular block. Wide QRS. Left axis deviation. Normal QT and QTc. T wave inversion. EKG unchanged when compared with prior EKG. The study has been interpreted contemporaneously by me. The study has been independently viewed by me. The EKG appears to be a good tracing. Interpretation time: 1205. Chest X-ray: (1. New right upper lobe and right lower lobe infiltrates. Could represent interstitial edema secondary to CHF. 2. Extensive pulmonary parenchymal scarring 3. CABG and valvuloplasty). Views: AP. Technique: good. The X-rays were independently viewed by me, interpreted by the radiologist and discussed with the radiologist. A comparison with prior films reveals that the findings have worsened. Laboratory Tests: CBC w Diff: (CHARLENE: 11/05/2016 12:40) ( MsgRcvd 11/05/2016 13:00) Final results Test Result Flag Units (Reference) WHITE BLOOD COUNT 14.8 H K/uL (4.5-11.5) RED BLOOD COUNT 4.37 L M/uL (4.50-5.90) HEMOGLOBIN 13.8 gm/dL (13.5-17.5) HEMATOCRIT 41.0 % (41.0-53.0) MEAN CELL VOLUME 94 fL (80-100) MEAN CORPUSCULAR HGB 32 pg (26-34) MEAN CORPUSCULAR HGB CONC 34 g/dL (31-37) RED CELL DISTRIBUTION WIDTH 14.0 % (11.6-14.8) PLATELET COUNT 241 K/uL (150-400) NEUTROPHIL % 85.6 H % (50-75) LYMPH % 7.5 L % (25-40) MONO % 5.9 % (3-14) EOSINOPHIL % 0.8 % (0-4) BASOPHIL % 0.2 % (0-2) PT with INR: (CHARLENE: 11/05/2016 12:40) ( [facility] 11/05/2016 14:12) Final results Test Result Flag Units (Reference) INR 3.0 H (0.8-1.2) Low Intensity Therapy: INR 1.5-2.0 PT range 18.5-23.1Mod.Intensity Therapy: INR 2.0-3.0 PT range 23.1-31.5High Intensity Therapy: INR 2.5-3.5 PT range 27.4-35.5High Intensity Therapy 2: INR 3.0-4.0 PT range 31.5-39.3 APTT 43 H SECONDS (24-34) [id number]: (CHARLENE: 11/05/2016 12:40) ( [facility] 11/05/2016 13:44) Final results Test Result Flag Units (Reference) D-DIMER QUANTITATIVE 0.84 H ug/mLFEU (0.27-0.52) The primary value of this quantitative assay relates toits negative predictive value (i.e. exclusion) of pulmonaryembolism/deep vein thrombosis/DIC.Elevated levels of d-dimer may also occur with:, age, cancer, inflammation, liver disease,post-op, infection, hematoma, coronary disease, peripheralarteriopathy, bleeding disorders and thrombolytic treatment.Results should be correlated with other clinical andradiological data.Testing Methodology: Latex Immunoassay [id number]: (CHARLENE: 11/05/2016 12:40) ( [facility] 11/05/2016 14:39) Final results Test Result Flag Units (Reference) PROCALCITONIN <0.5 ng/mL (0-0.5) PCT Concentration: Interpretation : Risk/option for action PCT <=0.5 ng/mL : Systemic : Low risk forinfection(sepsis): progression to severeis not likely. : systemic infection.Local bacterial : CAUTION-PCT levelsinfection is : below 0.5 ng/mL do notpossible. : exclude an infection,because localizedinfections (withoutsystemic signs) may beassociated with suchlow levels. If PCT ismeasured very earlyafter a bacterialchallenge (usually <6hours), these valuesmay still be low. Inthis case PCT shouldbe re-assessed 6-24hours later. PCT >0.5 and : Systemic infection: Moderate risk for<= 2 ng/mL : (sepsis) is : progression to severepossible, but : systemic infection.other conditions : The patient should beare known to : closely monitoredelevate PCT. : both clinically andby re-assessing PCTwithin 6-24 hours. PCT > 2 ng/mL : Systemic infection: High risk for(sepsis) is likely: progression to severeunless other : systemic infection.causes are known. : PCT >= 10 ng/mL : Important systemic: High likelihood ofinflammatory : severe sepsis orresponse, almost : septic shock.exclusively due to:severe bacterial :sepsis or septic :shock. : BNP: (CHARLENE: 11/05/2016 12:40) ( MsgRcvd 11/05/2016 13:32) Final results Test Result Flag Units (Reference) B-TYPE NATRIURETIC PEPTIDE 1490 H pg/ml (5-100) CHEM 13 PANEL: (CHARLENE: 11/05/2016 12:40) ( MsgRcvd 11/05/2016 13:30) Final results Test Result Flag Units (Reference) GLUCOSE 139 H mg/dL (70-110) BUN 16 mg/dL (7-18) CREATININE 1.0 mg/dL (0.6-1.3) Estimated GFR >60 mL/min Estimated GFR- >60 mL/min Note: Persistent reduction over 3 months in eGFR<60 mL/min/1.73 m2 defines CKD. Patients with eGFR values>=60 mL/min/1.73 m2 may also have CKD if evidence ofpersistent proteinuria. Additional information may be foundat www.kidney.org. SODIUM 139 mmol/L (136-145) POTASSIUM 3.7 mmol/L (3.5-5.1) CHLORIDE 107 mmol/L (98-107) CARBON DIOXIDE 23 mmol/L (21-32) CALCIUM 8.2 L mg/dL (8.5-10.1) TOTAL PROTEIN 7.1 g/dL (6.4-8.2) ALBUMIN 2.5 L g/dL (3.3-5.0) BILIRUBIN, TOTAL 0.6 mg/dL (0.0-1.0) ALKALINE PHOSPHATASE 64 U/L (46-116) AST (SGOT) 27 U/L (15-37) ALT (SGPT) 26 U/L (12-78) MAGNESIUM 1.4 L mg/dL (1.8-2.4) CPK 46 U/L (24-260) TROPONIN I <0.05 ng/mL (0.00-1.5) TROPONIN REFERENCE RANGE:<0.1 NEGATIVE0.1-1.5 INDETERMINANT>1.5 POSITIVE ABG: (CHARLENE: 11/05/2016 12:25) ( [facility] 11/05/2016 12:52) Final results Test Result Flag Units (Reference) FIO2 0.32 L % (20-101) ABG MODE OF DELIVERY NC MODIFIED MAYELIN TEST POSITIVE? YES LITERS PER MIN. 3 L/MIN (0-20) ABG PATIENT RESP RATE 20 /MIN ARTERIAL BLOOD GAS SITE RR ARTERIAL BLOOD GAS pH 7.46 H (7.35-7.45) ABG PCO2 29.7 L mmHg (35-45) ABG PO2 51.5 L mmHg (60.0-80.0) ABG BASE EXCESS -2.3 H mmol/L (-6.0--6.0) ABG HCO3 21.0 mmol/L (20.0-26.0) ABG TCO2 22.0 L mmol/L (24.0-30.0) ABG CfXsK0c 0.0 L mmHg (7.0-14.0) *NOTE: Normal rangeis based on aFIO2 of 21% ABG SAT O2 89.5 L % (95.1-100.0) ABG TOTAL HEMOGLOBIN 14.0 g/dL (14.0-18.0) ABG O2 HEMOGLOBIN 87.6 L % (95.0-100.0) ABG CARBOXYHEMOGLOBIN 2.1 H % (0.5-1.5) ABG METHEMOGLOBIN 0.0 L % (0.4-1.5) ABG RHEMOGLOBIN 10.3 % . PROGRESS AND PROCEDURES Discussed case with patient's primary care provider, (call returned 15:01 Dr. Vila. Agrees to admission). Reviewed test results and need for additional work-up. Orders dictated to me. Health care provider will see patient in hospital. Disposition: Admitted to Acute Care. Condition: good. Admit decision based on need for observation, IV antibiotics and stabilization of condition. CLINICAL IMPRESSION Bacterial and lobar pneumonia with hypoxemia. Empiric antibiotics given in the ED. No respiratory failure. Acute moderate congestive heart failure. Mild hypomagnesemia. Hypoxia. INSTRUCTIONS Follow-up: Blood pressure screening was not performed during this visit because the patient has an active diagnosis of hypertension. (Electronically signed by Miguelito Valencia Dr. 11/05/2016 17:44)
--- NOTE | 2016-11-05 14:56 | ED CLINICAL REPORT ---
Clinical Report - Physicians/Mid Levels [facility] [address] [place] [address] 11/05/2016 11:42 Patient: HIPOLITO BAILEY Arrived- By ambulance. Historian- patient. HISTORY OF PRESENT ILLNESS Chief Complaint: HISTORY OF CHRONIC OBSTRUCTIVE PULMONARY DISEASE and CONGESTIVE HEART FAILURE. This started today and is still present. It was gradual in onset and has been constant. The dyspnea is described as moderate. The dyspnea is worsened by walking and exertion. No improvement of dyspnea with rest or oxygen. The patient has had sputum production, a cough, wheezing, dyspnea on exertion and orthopnea. He has had dizziness. No fever, sweating episodes, chills or chest pain or discomfort. No calf pain, foot swelling or palpitations. Similar symptoms previously: Many times. Recent medical care: Not recently seen/assessed. REVIEW OF SYSTEMS No nasal discharge, nausea, vomiting, abdominal pain or headache. No difficulty with urination. He experienced syncope. All systems otherwise negative, except as recorded above. PAST HISTORY Hypomagnesemia. Post-Op Complications. Peripheral Neuropathy. Bradycardia. Carotid bruit. Asbestosis. Obstructive Sleep Apnea. Somnolence. Hyperlipidemia. Aortic valve disorder. Cardiomyopathy. Back Pain. Diabetes Mellitus Type 2. Neuropathy. Syncope. Actinic keratosis. Inguinal hernia. Shoulder pain. Hip pain. Lung Disease. Hemoptysis. Bronchitis. Pneumonia. Gastroesophageal Reflux. Tonsillitis. COPD - Chronic Obstructive Pulmonary Disease. Cancer. Myocardial Infarction. Vertigo. Heart Disease. Sleep Apnea. Hypertension. Gastroesophageal Reflux Disease. . ADDITIONAL SURGERIES: Aortic Valve Replacement. Bowel Surgery. Coronary Angioplasty. Coronary Artery Bypass Graft. Hernia Repair. Prostatectomy. Valve Replacement. -. SOCIAL HISTORY Former smoker. No alcohol use or drug use. ADDITIONAL NOTES The nursing notes have been reviewed. PHYSICAL EXAM Vital Signs: 11/05/2016 11:48 BP: 106/68. HR: 79. RR: 22. O2 saturation: 83%. Temp: 98.3 F. Pain level now: 0/10. Have been reviewed. Blood pressure normal. Heart rate normal. Tachypneic. Temperature normal. Oxygen saturation low. Appearance: Alert. No acute distress. Eyes: Eyes normal inspection. ENT: The mucous membranes are not dry. Neck: No jugular venous distention. CVS: Normal heart rate and rhythm. Heart sounds normal. Respiratory: Mild respiratory distress with accessory muscle use. Mildly prolonged expirations. Mild rales present in the bases bilaterally; rales in the right upper lung posteriorly. No wheezes. Abdomen: Soft and nontender. No organomegaly. Skin: Skin warm and dry. Normal skin color. No rash. Extremities: No lower extremity edema. Neuro: Oriented X 3. No motor deficit. LABS, X-RAYS, AND EKG EKG: EKG time: (1205). No acute process. No acute ischemia. Normal sinus rhythm. Rate: 81. Normal P waves. First-degree atrioventricular block. Wide QRS. Left axis deviation. Normal QT and QTc. T wave inversion. EKG unchanged when compared with prior EKG. The study has been interpreted contemporaneously by me. The study has been independently viewed by me. The EKG appears to be a good tracing. Interpretation time: 1205. Chest X-ray: (1. New right upper lobe and right lower lobe infiltrates. Could represent interstitial edema secondary to CHF. 2. Extensive pulmonary parenchymal scarring 3. CABG and valvuloplasty). Views: AP. Technique: good. The X-rays were independently viewed by me, interpreted by the radiologist and discussed with the radiologist. A comparison with prior films reveals that the findings have worsened. Laboratory Tests: CBC w Diff: (CHARLENE: 11/05/2016 12:40) ( MsgRcvd 11/05/2016 13:00) Final results Test Result Flag Units (Reference) WHITE BLOOD COUNT 14.8 H K/uL (4.5-11.5) RED BLOOD COUNT 4.37 L M/uL (4.50-5.90) HEMOGLOBIN 13.8 gm/dL (13.5-17.5) HEMATOCRIT 41.0 % (41.0-53.0) MEAN CELL VOLUME 94 fL (80-100) MEAN CORPUSCULAR HGB 32 pg (26-34) MEAN CORPUSCULAR HGB CONC 34 g/dL (31-37) RED CELL DISTRIBUTION WIDTH 14.0 % (11.6-14.8) PLATELET COUNT 241 K/uL (150-400) NEUTROPHIL % 85.6 H % (50-75) LYMPH % 7.5 L % (25-40) MONO % 5.9 % (3-14) EOSINOPHIL % 0.8 % (0-4) BASOPHIL % 0.2 % (0-2) PT with INR: (CHARLENE: 11/05/2016 12:40) ( [facility] 11/05/2016 14:12) Final results Test Result Flag Units (Reference) INR 3.0 H (0.8-1.2) Low Intensity Therapy: INR 1.5-2.0 PT range 18.5-23.1Mod.Intensity Therapy: INR 2.0-3.0 PT range 23.1-31.5High Intensity Therapy: INR 2.5-3.5 PT range 27.4-35.5High Intensity Therapy 2: INR 3.0-4.0 PT range 31.5-39.3 APTT 43 H SECONDS (24-34) [id number]: (CHARLENE: 11/05/2016 12:40) ( [facility] 11/05/2016 13:44) Final results Test Result Flag Units (Reference) D-DIMER QUANTITATIVE 0.84 H ug/mLFEU (0.27-0.52) The primary value of this quantitative assay relates toits negative predictive value (i.e. exclusion) of pulmonaryembolism/deep vein thrombosis/DIC.Elevated levels of d-dimer may also occur with:, age, cancer, inflammation, liver disease,post-op, infection, hematoma, coronary disease, peripheralarteriopathy, bleeding disorders and thrombolytic treatment.Results should be correlated with other clinical andradiological data.Testing Methodology: Latex Immunoassay [id number]: (CHARLENE: 11/05/2016 12:40) ( [facility] 11/05/2016 14:39) Final results Test Result Flag Units (Reference) PROCALCITONIN <0.5 ng/mL (0-0.5) PCT Concentration: Interpretation : Risk/option for action PCT <=0.5 ng/mL : Systemic : Low risk forinfection(sepsis): progression to severeis not likely. : systemic infection.Local bacterial : CAUTION-PCT levelsinfection is : below 0.5 ng/mL do notpossible. : exclude an infection,because localizedinfections (withoutsystemic signs) may beassociated with suchlow levels. If PCT ismeasured very earlyafter a bacterialchallenge (usually <6hours), these valuesmay still be low. Inthis case PCT shouldbe re-assessed 6-24hours later. PCT >0.5 and : Systemic infection: Moderate risk for<= 2 ng/mL : (sepsis) is : progression to severepossible, but : systemic infection.other conditions : The patient should beare known to : closely monitoredelevate PCT. : both clinically andby re-assessing PCTwithin 6-24 hours. PCT > 2 ng/mL : Systemic infection: High risk for(sepsis) is likely: progression to severeunless other : systemic infection.causes are known. : PCT >= 10 ng/mL : Important systemic: High likelihood ofinflammatory : severe sepsis orresponse, almost : septic shock.exclusively due to:severe bacterial :sepsis or septic :shock. : BNP: (CHARLENE: 11/05/2016 12:40) ( MsgRcvd 11/05/2016 13:32) Final results Test Result Flag Units (Reference) B-TYPE NATRIURETIC PEPTIDE 1490 H pg/ml (5-100) CHEM 13 PANEL: (CHARLENE: 11/05/2016 12:40) ( MsgRcvd 11/05/2016 13:30) Final results Test Result Flag Units (Reference) GLUCOSE 139 H mg/dL (70-110) BUN 16 mg/dL (7-18) CREATININE 1.0 mg/dL (0.6-1.3) Estimated GFR >60 mL/min Estimated GFR- >60 mL/min Note: Persistent reduction over 3 months in eGFR<60 mL/min/1.73 m2 defines CKD. Patients with eGFR values>=60 mL/min/1.73 m2 may also have CKD if evidence ofpersistent proteinuria. Additional information may be foundat www.kidney.org. SODIUM 139 mmol/L (136-145) POTASSIUM 3.7 mmol/L (3.5-5.1) CHLORIDE 107 mmol/L (98-107) CARBON DIOXIDE 23 mmol/L (21-32) CALCIUM 8.2 L mg/dL (8.5-10.1) TOTAL PROTEIN 7.1 g/dL (6.4-8.2) ALBUMIN 2.5 L g/dL (3.3-5.0) BILIRUBIN, TOTAL 0.6 mg/dL (0.0-1.0) ALKALINE PHOSPHATASE 64 U/L (46-116) AST (SGOT) 27 U/L (15-37) ALT (SGPT) 26 U/L (12-78) MAGNESIUM 1.4 L mg/dL (1.8-2.4) CPK 46 U/L (24-260) TROPONIN I <0.05 ng/mL (0.00-1.5) TROPONIN REFERENCE RANGE:<0.1 NEGATIVE0.1-1.5 INDETERMINANT>1.5 POSITIVE ABG: (CHARLENE: 11/05/2016 12:25) ( [facility] 11/05/2016 12:52) Final results Test Result Flag Units (Reference) FIO2 0.32 L % (20-101) ABG MODE OF DELIVERY NC MODIFIED MAYELIN TEST POSITIVE? YES LITERS PER MIN. 3 L/MIN (0-20) ABG PATIENT RESP RATE 20 /MIN ARTERIAL BLOOD GAS SITE RR ARTERIAL BLOOD GAS pH 7.46 H (7.35-7.45) ABG PCO2 29.7 L mmHg (35-45) ABG PO2 51.5 L mmHg (60.0-80.0) ABG BASE EXCESS -2.3 H mmol/L (-6.0--6.0) ABG HCO3 21.0 mmol/L (20.0-26.0) ABG TCO2 22.0 L mmol/L (24.0-30.0) ABG [id number] 0.0 L mmHg (7.0-14.0) *NOTE: Normal rangeis based on aFIO2 of 21% ABG SAT O2 89.5 L % (95.1-100.0) ABG TOTAL HEMOGLOBIN 14.0 g/dL (14.0-18.0) ABG O2 HEMOGLOBIN 87.6 L % (95.0-100.0) ABG CARBOXYHEMOGLOBIN 2.1 H % (0.5-1.5) ABG METHEMOGLOBIN 0.0 L % (0.4-1.5) ABG RHEMOGLOBIN 10.3 % . PROGRESS AND PROCEDURES Discussed case with patient's primary care provider, (call returned 15:01 Dr. Vila. Agrees to admission). Reviewed test results and need for additional work-up. Orders dictated to me. Health care provider will see patient in hospital. Disposition: Admitted to Acute Care. Condition: good. Admit decision based on need for observation, IV antibiotics and stabilization of condition. CLINICAL IMPRESSION Bacterial and lobar pneumonia with hypoxemia. Empiric antibiotics given in the ED. No respiratory failure. Acute moderate congestive heart failure. Mild hypomagnesemia. Hypoxia. INSTRUCTIONS Follow-up: Blood pressure screening was not performed during this visit because the patient has an active diagnosis of hypertension. (Electronically signed by Miguelito Valencia Dr. 11/05/2016 17:44)
--- NOTE | 2016-11-05 14:56 | ED ORDER SUMMARY ---
..... Patient: HIPOLITO BAILEY OrderSheet [facility] VisitID: [id number] [address] [place] [address] 86y, M Registration Date/Time: 11/05/2016 ORDER SHEET Weight: 62.5 kg Allergies: No Known Drug Allergy GENERAL ORDERS: Chest 1V Urgent (12:25 11/05/2016 Liz Ro) (Ack 12:29 LNations ER Tech1) (12:36 JSanders R.N.) Cardiac Panel Stat (12:25 11/05/2016 Liz Ro) (Ack 12:29 LNations ER Tech1) (12:36 JSanders R.N.) BNP Urgent (12:25 11/05/2016 Liz Ro) (Ack 12:29 LNations ER Tech1) (12:36 JSanders R.N.) D-Dimer Urgent (12:25 11/05/2016 Liz Ro) (Ack 12:29 LNations ER Tech1) (12:36 JSanders R.N.) UA-Culture if indicated Urgent (12:25 11/05/2016 Liz Ro) (Ack 12:29 LNations ER Tech1) (14:38 JBoardley R.N.) ABG (G) Urgent (12:25 11/05/2016 Liz Ro) (Ack 12:29 LNations ER Tech1) (12:48 JSanders R.N.) Blood Culture (No) (N/A) Urgent (13:39 11/05/2016 Liz Ro) (Ack 13:48 LNations ER Tech1) (14:13 JSanders R.N.) Lactic Acid for Sepsis Protocol Urgent (13:41 11/05/2016 Liz Ro) (Ack 13:48 LNations ER Tech1) (14:13 JSanders R.N.) PCT (Procalcitonin) Urgent (13:41 11/05/2016 Liz Ro) (Ack 13:48 LNations ER Tech1) (14:13 JSanders R.N.) PTT Urgent (13:42 11/05/2016 Liz Ro) (Ack 13:48 LNations ER Tech1) (14:13 AILEENanders R.N.) PT with INR Urgent (13:42 11/05/2016 Liz Ro) (Ack 13:48 LNations ER Tech1) (14:13 AILEENanders R.N.) - (Magnesium Oxide 400 mg PO x 1 now) (13:57 11/05/2016 Liz Ro) (Ack 14:13 AILEENanders R.N.) (Cancelled: Physician Order14:35 Liz Ro) MEDICATION ORDERS: - (Magnesium Oxide 400 mg PO x 1 now.) (14:35 11/05/2016 Liz Ro) (Ack 14:42 Mariana R.N.) (14:56 Sukhjinders R.N.) IV FLUIDS: IV Saline Lock (12:25 11/05/2016 Liz Ro) (12:26 Alia R.N.) Lasix IV 40 mg (NOW) (13:40 11/05/2016 Liz Ro) (Ack 13:43 Nina-Adilia R.N.) (14:14 Sukhjinders R.N.) Zosyn IV 4.5 gm/100mL (NOW) (13:40 11/05/2016 Liz Ro) (Ack 13:43 Nina-Adilia R.N.) (14:53 Sukhjinders R.N.) Levaquin IV 750 mg/150 mL (NOW) (13:40 11/05/2016 Liz Ro) (Ack 13:43 Nina-Adilia R.N.) (14:15 AILEENanders R.N.) Vancomycin IV 1 gm/200mL (NOW) (13:41 11/05/2016 Liz Ro) (Ack 13:43 Nina-Adilia R.N.) (14:54 AILEENanders R.N.) ORDER SHEET NOTES: [Electronically signed by Estrella Carbajal R.N. (17:03 11/05/2016)] [Electronically signed by Miguelito Valencia Dr. (17:44 11/05/2016)] [Electronically locked/signed by Estrella Carbajal R.N. (17:03 11/05/2016)]
--- NOTE | 2016-11-05 14:56 | ED NURSING NOTES ---
Clinical Report - Nurses [facility] [address] [place] [address] 11/05/2016 11:42 Patient: HIPOLITO BAILEY TRIAGE Triage time 11:48 Nov 05 2016. Acuity: LEVEL 3. Chief Complaint: FALL while standing (Patient fell last night, hit his head on table. nurse came out and said his O2 sats were in 70's so she called 911). 11:56 11/05/16. ( Patient placed on 4L and O2 up to 88%). SEPSIS SCREEN: Sepsis Screen. Negative (no infection suspected/documented). ROCIO COMA SCORE: Rocio Coma Scale: 15- eyes open spontaneously (4); best verbal response- oriented x 4 (5); best motor response- obeys commands (6). --11:57 Estrella Carbajal R.N. 11:48 11/05/16. BP: 106/68 (regular adult cuff) taken on the left arm. HR: 79. RR: 22. O2 saturation: 83% on room air. Temp: 98.3 F. Pain level now: 0/10. Additional comments: on good wave form. --11:57 Estrella Carbajal R.N. Weight: 62.5 kg. Height/Length: 66 inches. BMI: 22.3. --11:57 Estrella Carbajal R.N. Medications Advair Diskus Inhalation 1 puff, 2x a day. Atorvastatin Calcium Oral 40 mg, daily. Coreg Oral 3.125 mg, 2x a day. Coumadin Oral MWF and 2.5mg TTHSS, at bedtime. Daliresp Oral (Tablet 500 mcg) 1 tablet, daily. Diabethiderm ext cream, as needed. EpiPen 2-Henry Injection. Furosemide Oral 20 mg, daily. Gabapentin Oral 100 mg, 1-3 tabs, 3x a day as needed, nerve pain. Latanoprost Ophthalmic 1 drop OU . Lisinopril Oral 5 mg, daily. Magnesium Oral 1 cap, 64 mg, 2x a day. Jad krill 30mg. MetFORMIN HCl Oral 1000 mg , 2x a day. Mirapex Oral 0.125 mg, at bedtime. Multivitamin Oral (with vit K 2 tab daily for coumadin up/down). Potassium Oral 10 meq BID. ProAir HFA Inhalation 2 puffs, as needed. Protonix Oral 40 mg, daily. Spiriva HandiHaler Inhalation (Capsule 18 mcg) 1 capsule, daily. Tylenol Oral (Tablet 325 mg) 1 tablet, as needed (every 4 hours). Voltaren Transdermal to feet. WelChol Oral 625 mg, 2 tabs TID. -- Estrella Carbajal R.N. Allergies No Known Drug Allergy. -- Estrella Carbajal R.N. History Arrived by EMS. Historian: EMS and patient. Primary physician (EDILBERTO VELÁZQUEZ). This occurred last night. He has had neck pain (Back of head is tender) and difficulty breathing. Treatment [employer]LECTRODE [employer]ANER: None. PAST MEDICAL HX: Diabetes mellitus. Heart disease. SOCIAL HX: Smoker- current status unknown. No alcohol use or drug use. No infectious disease exposure. ABUSE ASSESSMENT: No report of abuse. -- Estrella Carbajal R.N. PROBLEMS: Hypomagnesemia. Post-Op Complications. Peripheral Neuropathy. Bradycardia. Carotid bruit. Asbestosis. Obstructive Sleep Apnea. Somnolence. Hyperlipidemia. Aortic valve disorder. Cardiomyopathy. Back Pain. Diabetes Mellitus Type 2. Neuropathy. Syncope. Actinic keratosis. Inguinal hernia. Shoulder pain. Hip pain. Lung Disease. Hemoptysis. Bronchitis. Pneumonia. Gastroesophageal Reflux. Tonsillitis. COPD - Chronic Obstructive Pulmonary Disease. Cancer. Myocardial Infarction. Vertigo. Heart Disease. Sleep Apnea. Hypertension. Gastroesophageal Reflux Disease. -- Estrella Carbajal R.N. ADDITIONAL SURGERIES: Aortic Valve Replacement. Bowel Surgery. Coronary Angioplasty. Coronary Artery Bypass Graft. Hernia Repair. Prostatectomy. Valve Replacement. -- Estrella Carbajal R.N. Interventions ID band on patient. To treatment room. -- Estrella Carbajal R.N. PHYSICAL ASSESSMENT 12:00 11/05/16. To room via stretcher. Patient gowned. GENERAL / NEURO / PSYCH: Alert. Oriented X 4. HEENT: Pupils equal, round and reactive to light. Head non-tender. RESPIRATORY: Mild respiratory distress. Decreased breath sounds in the bases bilaterally (Rales at bases). ( Chest tenderness when SOB). CVS: Pulses within normal limits. Capillary refill less than 2 seconds. GI / : Abdomen soft and nontender. EXTREMITIES: Extremities exhibit normal ROM. SKIN: Skin intact. Skin is warm. --12:00 Estrella Carbajal R.N. CVS: Cardiac rhythm: occasional multifocal PVCs. --12:11 Estrella Carbajal R.N. NURSING PROGRESS NOTES 12:11/05/2016 Site #1 started prior to arrival by EMS via IV in the right forearm with an 20g angiocath, with good blood return. --12:01 Estrella Carbajal R.N. 12:11/05/16. The plan of care for this patient has been created. Patient gowned. Reassurance given. Two patient identifiers checked. Call light placed in reach. Side rails up x 2. Bed placed in lowest position. Brakes of bed on. Patient ready for evaluation- chart flagged and ED physician notified. --12:01 Estrella Carbajal R.N. 12:01 11/05/16. BP: 99/66 (regular adult cuff) taken on the left arm. HR: 72. RR: 24. O2 saturation: 90% on nasal cannula at 4 liters/minute. Pain level now: 0/10. --12:02 Estrella Carbajal R.N. EKG time: (1205). EKG was ordered, performed by a tech and shown to the ED physician. --12:14 Amy Odell ER Tech1 12:19 11/05/16. BP: 115/59 (regular adult cuff) taken on the left arm. HR: 78. RR: 28. O2 saturation: 91% on nasal cannula at 4 liters/minute. Pain level now: 0/10. --12:20 Estrella Carbajal R.N. 12:20 11/05/16. ( Patient given warm blanket for comfort measures). --12:20 Estrella Carbajal R.N. 12:39 11/05/16. BP: 105/63 (large adult cuff) taken on the left arm. HR: 77. RR: 28. O2 saturation: 93% on nasal cannula at 4 liters/minute. Pain level now: 0/10. --12:40 Estrella Carbajal R.N. 14:04 11/05/2016 Lasix IVP 40 mg given over 5 minute(s) via site #1. Allergies verified and confirmed 5 rights. IV patency established. IV site checked: no pain, redness, or swelling. IV flushed thoroughly pre- and post-medication administration. IVP given by RN. --14:14 Estrella Carbajal R.N. 14:15 11/05/2016 Started 750 mg of Levaquin (Levofloxacin) IVPB in bag #1 150 mL; at 100 mL/hr over 90 minute(s) via site #1 via IV pump. Allergies verified and confirmed 5 rights. IV patency established. IV site checked: no pain, redness, or swelling. IV flushed thoroughly pre- and post-medication administration. --14:15 Estrella Carbajal R.N. 14:16 11/05/16. BP: 124/62 (regular adult cuff) taken on the left arm. HR: 84. RR: 28. O2 saturation: 92% on nasal cannula at 4 liters/minute. Pain level now: 0/10. --14:16 Estrella Carbajal R.N. <<STRICKEN ENTRY-- 14:27 11/05/2016 Site #2 started via IV in the right forearm with an 20g angiocath, with aseptic technique and good blood return; one attempt. Saline lock flushed with 10 mL saline. --14:52 Estrella Carbajal R.N. --END STRIKE>> Correction. --14:53 Estrella Carbajal R.N. 14:27 11/05/2016 Site #2 started via IV in the left forearm with an 20g angiocath, with aseptic technique and good blood return; one attempt. Saline lock flushed with 10 mL saline. --14:53 Estrella Carbajal R.N. 14:38 11/05/16. Patient ID band checked for patient name and birthdate: patient confirmed. Clean catch urine collected with return of emely-colored urine; sample sent to lab for urinalysis and culture. Specimen labeled in the presence of the patient. --14:38 Po Vides R.N. 14:39 11/05/2016 Started 1 gm of Vancomycin IVPB in bag #1 200 mL; at 200 mL/hr over 1 hour(s) via site #1 via IV pump. Allergies verified and confirmed 5 rights. IV patency established. IV site checked: no pain, redness, or swelling. IV flushed thoroughly pre- and post-medication administration. --14:54 Estrella Carbajal R.N. 14:40 11/05/2016 Magnesium Hydroxide PO Tablets 400 tablet given. Allergies verified and confirmed 5 rights. (Magnesium oxide 400mg given). --14:56 Estrella Carbajal R.N. late entry - 14:50 11/05/16. ( Patient depends were wet, removed pants, Patients body cleaned with wet wipes, redness noted at coccyx about 6 inch diameter, replaced sheets and blankets for patients comfort, patient given warm blankets and ice chips for comfort measures). --15:50 Estrella Carbajal R.N. 14:53 11/05/2016 Started 4.5 gm of Zosyn (Piperacillin Sod-Tazobactam So) IVPB in bag #1 100 mL; at 100 mL/hr over 1 hour(s) via site #2 via IV pump. Allergies verified and confirmed 5 rights. IV patency established. IV site checked: no pain, redness, or swelling. IV flushed thoroughly pre- and post-medication administration. --14:53 Estrella Carbajal R.N. 14:57 11/05/16. BP: 114/57 (regular adult cuff) taken on the left arm. HR: 75. RR: 28. O2 saturation: 94% on nasal cannula at 4 liters/minute. Pain level now: 0/10. --14:57 Estrella Carbajal R.N. 15:12 11/05/16. HR: 74. RR: 24. O2 saturation: 98% on nasal cannula at 4 liters/minute. Pain level now: 0/10. --15:13 Estrella Carbajal R.N. 15:40 11/05/16. BP: 120/42 (regular adult cuff) taken on the left arm. HR: 75. RR: 24. O2 saturation: 91% on nasal cannula at 4 liters/minute. Temp: 98 F (oral). Pain level now: 0/10. --15:43 Estrella Carbajal R.N. 15:43 11/05/16. --15:43 Estrella Carbajal R.N. 15:44 11/05/2016 Levaquin IVPB Discontinued: bag #1 completed. Total amount infused: 150 mL. IV patency established. IV site checked: no pain, redness, or swelling. IV flushed thoroughly. --15:44 Estrella Carbajal R.N. 15:54 11/05/16. BP: 99/51 (regular adult cuff) taken on the left arm. HR: 89. RR: 24. O2 saturation: 89% on nasal cannula at 4 liters/minute. Pain level now: 0/10. --15:54 Estrella Carbajal R.N. 15:58 11/05/2016 Vancomycin IVPB Discontinued: bag #2 completed. Total amount infused: 200 mL. IV patency established. IV site checked: no pain, redness, or swelling. IV flushed thoroughly. --15:58 Estrella Carbajal R.N. 15:59 11/05/2016 Zosyn IVPB Discontinued: bag #3 completed. Total amount infused: 100 mL. IV patency established. IV site checked: no pain, redness, or swelling. IV flushed thoroughly. --15:59 Estrella Carbajal R.N. 16:13 11/05/16. ( Patient lifted up in bed, waffle mattress placed for patients comfort, sheets changed, barrier cream applied to coccyx area and new depends placed on patient. Patient given more warm blankets). --16:13 Estrella Carbajal R.N. 16:14 11/05/16. BP: 101/47 (regular adult cuff) taken on the left arm. HR: 74. RR: 24. O2 saturation: 88% on nasal cannula at 4 liters/minute. Pain level now: 0/10. --16:17 Estrella Carbajal R.N. DISPOSITION / DISCHARGE Report was given to a nurse via a phone call. Report included patient's care, treatment, medications, reviewed medication reconcilliation, and condition (including any recent changes or anticipated changes). All questions were answered. Report was acknowledged and care was transferred. --16:41 Estrella Carbajal R.N. 16:59 11/05/16. Departure time: 16:58 Nov 05 2016. Admitted to Acute Care (16:59 Nov 05 2016). Bed obtained (206). Patient's personal items; items were placed in belongings bag and transported with the patient. --16:59 Estrella Carbajal R.N. 16:52 11/05/16. BP: 120/55 (regular adult cuff) taken on the left arm. HR: 72. RR: 24. O2 saturation: 94% on nasal cannula at 4 liters/minute. Temp: 100 F (oral). Pain level now: 0/10. --16:59 Estrella Carbajal R.N. Locked/Released at 11/05/2016 17:03 by Estrella Carbajal R.N.
[2016-11-05 17:38] VITALS: BP 118/55
--- NOTE | 2016-11-05 17:45 | ED MED RECONCILIATION SUMMARY ---
Patient: HIPOLITO BAILEY Medication Reconciliation Report [facility] VisitID: [id number] [address] [place] [address] 86y, M Registration Date/Time: 11/05/2016 Weight: 62.5 kg Height/Length: 66 in. BMI: 22.3 ALLERGIES: No Known Drug Allergy The patient's Home Medications are listed below: THE FOLLOWING MEDICATIONS NEED TO BE RECONCILED: Advair Diskus Inhalation 1 puff, 2x a day Atorvastatin Calcium Oral 40 mg, daily Coreg Oral 3.125 mg, 2x a day Coumadin Oral MWF and 2.5mg TTHSS, at bedtime Daliresp Oral (500 mcg) 1 tablet, daily Diabethiderm ext cream EpiPen 2-Henry Injection Furosemide Oral 20 mg, daily Gabapentin Oral 100 mg, 1-3 tabs, 3x a day, nerve pain Latanoprost Ophthalmic 1 drop OU Lisinopril Oral 5 mg, daily Magnesium Oral 1 cap, 64 mg, 2x a day Jad krill 30mg MetFORMIN HCl Oral 1000 mg , 2x a day Mirapex Oral 0.125 mg, at bedtime Multivitamin Oral, with vit K 2 tab daily for coumadin up/down Potassium Oral 10 meq BID ProAir HFA Inhalation 2 puffs Protonix Oral 40 mg, daily Spiriva HandiHaler Inhalation (18 mcg) 1 capsule, daily Tylenol Oral (325 mg) 1 tablet, every 4 hours Voltaren Transdermal to feet WelChol Oral 625 mg, 2 tabs TID The source(s) of the original Home Medication information: Not obtained. The following Medications were given to the patient in the Emergency Department: Lasix [IVP] IVP 40 mg, administered: 11/05/2016 2:04:00 PM Levaquin [IVPB] IVPB bolus 0, then 750 mg 100 mL/hr, administered: 11/05/2016 2:15:00 PM Zosyn [IVPB] IVPB bolus 0, then 4.5 gm 100 mL/hr, administered: 11/05/2016 2:53:00 PM Vancomycin [IVPB] IVPB bolus 0, then 1 gm 200 mL/hr, administered: 11/05/2016 2:39:00 PM Magnesium Hydroxide [PO] PO 400 tablet, administered: 11/05/2016 2:40:00 PM The following Medications were prescribed to the patient: None.
--- NOTE | 2016-11-05 17:45 | ED MAR SUMMARY ---
..... Medication Administration Record [facility] [address] [place] [address] Patient: HIPOLITO BAILEY Visit ID: [id number] 86y, M Weight: 62.5 kg Height/Length: 66 in BMI: 22.3 ALLERGIES: No Known Drug Allergy Given 14:04 11/05/2016 Estrella Carbajal R.N. Medication Administered: LASIX [IVP], Dose: 40 mg IVP over 5 minute(s), Site: #1 right forearm. Medication Ordered: Lasix IV 40 mg (NOW). Start 14:15 11/05/2016 Estrella Carbajal R.N., Stop 15:44 11/05/2016 Estrella Cabrajal R.N. Medication Administered: LEVAQUIN [IVPB] (LEVOFLOXACIN), Dose: 750 mg IVPB over 90 minute(s), Rate: 100 mL/hr, Dispensed: 150 mL bag, Site: #1 right forearm. Medication Ordered: Levaquin IV 750 mg/150 mL (NOW). Start 14:39 11/05/2016 Estrella Carbajal R.N., Stop 15:58 11/05/2016 Estrella Carbajal R.N. Medication Administered: VANCOMYCIN [IVPB], Dose: 1 gm IVPB over 1 hour(s), Rate: 200 mL/hr, Dispensed: 200 mL bag, Site: #1 right forearm. Medication Ordered: Vancomycin IV 1 gm/200mL (NOW). Given 14:40 11/05/2016 Estrella Carbajal R.N. Medication Administered: MAGNESIUM HYDROXIDE [PO], Dose: 400 tablet Tablets PO. Medication Ordered: - (Magnesium Oxide 400 mg PO x 1 now.). Start 14:53 11/05/2016 Estrella Carbajal R.N., Stop 15:59 11/05/2016 Estrella Carbajal R.N. Medication Administered: ZOSYN [IVPB] (PIPERACILLIN SOD-TAZOBACTAM SO), Dose: 4.5 gm IVPB over 1 hour(s), Rate: 100 mL/hr, Dispensed: 100 mL bag, Site: #2 left forearm. Medication Ordered: Zosyn IV 4.5 gm/100mL (NOW).
--- NOTE | 2016-11-05 17:45 | ED DISCHARGE INSTRUCTIONS ---
Patient: HIPOLITO BAILEY General Instructions [facility] VisitID: [id number] [address] [place] [address] 86y, M Registration Date/Time: 11/05/2016 Bacterial and lobar pneumonia with hypoxemia. Empiric antibiotics given in the ED. No respiratory failure. Acute moderate congestive heart failure. Mild hypomagnesemia. Hypoxia. INSTRUCTIONS Follow-up: Blood pressure screening was not performed during this visit because the patient has an active diagnosis of hypertension. (Electronically signed by Miguelito Valencia Dr. 11/05/2016 17:44)
--- NOTE | 2016-11-05 17:45 | ED MED RECONCILIATION SUMMARY ---
Patient: HIPOLITO BAILEY Medication Reconciliation Report [facility] VisitID: [id number] [address] [place] [address] 86y, M Registration Date/Time: 11/05/2016 Weight: 62.5 kg Height/Length: 66 in. BMI: 22.3 ALLERGIES: No Known Drug Allergy The patient's Home Medications are listed below: THE FOLLOWING MEDICATIONS NEED TO BE RECONCILED: Advair Diskus Inhalation 1 puff, 2x a day Atorvastatin Calcium Oral 40 mg, daily Coreg Oral 3.125 mg, 2x a day Coumadin Oral MWF and 2.5mg TTHSS, at bedtime Daliresp Oral (500 mcg) 1 tablet, daily Diabethiderm ext cream EpiPen 2-Henry Injection Furosemide Oral 20 mg, daily Gabapentin Oral 100 mg, 1-3 tabs, 3x a day, nerve pain Latanoprost Ophthalmic 1 drop OU Lisinopril Oral 5 mg, daily Magnesium Oral 1 cap, 64 mg, 2x a day Jad krill 30mg MetFORMIN HCl Oral 1000 mg , 2x a day Mirapex Oral 0.125 mg, at bedtime Multivitamin Oral, with vit K 2 tab daily for coumadin up/down Potassium Oral 10 meq BID ProAir HFA Inhalation 2 puffs Protonix Oral 40 mg, daily Spiriva HandiHaler Inhalation (18 mcg) 1 capsule, daily Tylenol Oral (325 mg) 1 tablet, every 4 hours Voltaren Transdermal to feet WelChol Oral 625 mg, 2 tabs TID The source(s) of the original Home Medication information: Not obtained. The following Medications were given to the patient in the Emergency Department: Lasix [IVP] IVP 40 mg, administered: 11/05/2016 2:04:00 PM Levaquin [IVPB] IVPB bolus 0, then 750 mg 100 mL/hr, administered: 11/05/2016 2:15:00 PM Zosyn [IVPB] IVPB bolus 0, then 4.5 gm 100 mL/hr, administered: 11/05/2016 2:53:00 PM Vancomycin [IVPB] IVPB bolus 0, then 1 gm 200 mL/hr, administered: 11/05/2016 2:39:00 PM Magnesium Hydroxide [PO] PO 400 tablet, administered: 11/05/2016 2:40:00 PM The following Medications were prescribed to the patient: None.
--- NOTE | 2016-11-05 17:45 | ED DISCHARGE INSTRUCTIONS ---
Patient: HIPOLITO BAILEY General Instructions [facility] VisitID: [id number] [address] [place] [address] 86y, M Registration Date/Time: 11/05/2016 Bacterial and lobar pneumonia with hypoxemia. Empiric antibiotics given in the ED. No respiratory failure. Acute moderate congestive heart failure. Mild hypomagnesemia. Hypoxia. INSTRUCTIONS Follow-up: Blood pressure screening was not performed during this visit because the patient has an active diagnosis of hypertension. (Electronically signed by Miguelito Valencia Dr. 11/05/2016 17:44)
--- NOTE | 2016-11-05 17:45 | ED MAR SUMMARY ---
..... Medication Administration Record [facility] [address] [place] [address] Patient: HIPOLITO BAILEY Visit ID: [id number] 86y, M Weight: 62.5 kg Height/Length: 66 in BMI: 22.3 ALLERGIES: No Known Drug Allergy Given 14:04 11/05/2016 Estrella Carbajal R.N. Medication Administered: LASIX [IVP], Dose: 40 mg IVP over 5 minute(s), Site: #1 right forearm. Medication Ordered: Lasix IV 40 mg (NOW). Start 14:15 11/05/2016 Estrella Carbajal R.N., Stop 15:44 11/05/2016 Estrella Carbajal R.N. Medication Administered: LEVAQUIN [IVPB] (LEVOFLOXACIN), Dose: 750 mg IVPB over 90 minute(s), Rate: 100 mL/hr, Dispensed: 150 mL bag, Site: #1 right forearm. Medication Ordered: Levaquin IV 750 mg/150 mL (NOW). Start 14:39 11/05/2016 Estrella Carbajal R.N., Stop 15:58 11/05/2016 Estrella Carbajal R.N. Medication Administered: VANCOMYCIN [IVPB], Dose: 1 gm IVPB over 1 hour(s), Rate: 200 mL/hr, Dispensed: 200 mL bag, Site: #1 right forearm. Medication Ordered: Vancomycin IV 1 gm/200mL (NOW). Given 14:40 11/05/2016 Estrella Carbajal R.N. Medication Administered: MAGNESIUM HYDROXIDE [PO], Dose: 400 tablet Tablets PO. Medication Ordered: - (Magnesium Oxide 400 mg PO x 1 now.). Start 14:53 11/05/2016 Estrella Carbajal R.N., Stop 15:59 11/05/2016 Estrella Carbajal R.N. Medication Administered: ZOSYN [IVPB] (PIPERACILLIN SOD-TAZOBACTAM SO), Dose: 4.5 gm IVPB over 1 hour(s), Rate: 100 mL/hr, Dispensed: 100 mL bag, Site: #2 left forearm. Medication Ordered: Zosyn IV 4.5 gm/100mL (NOW).
--- NOTE | 2016-11-05 18:41 | Progress Note ---
Subjective General Full note dictated: 86 yo male with known hx of AVR and chronic lung dz who is admitted for pneumonia. Plan: coumadin and check INRs IV abx O2 IN Home meds
--- NOTE | 2016-11-05 18:41 | Progress Note ---
Subjective General Full note dictated: 86 yo male with known hx of AVR and chronic lung dz who is admitted for pneumonia. Plan: coumadin and check INRs IV abx O2 [place] Home meds
[2016-11-05 20:12] VITALS: BP 130/101
[2016-11-05 21:13] VITALS: BP 92/50
--- NOTE | 2016-11-05 21:41 | HISTORY AND PHYSICAL ---
ADMITTED: 11/05/2016 CHIEF COMPLAINT: 1. Shortness of breath, weakness, falls HISTORY OF PRESENT ILLNESS: The patient is an 86-year-old man with chronic lung disease and multiple hospitalizations, a recent hospitalization on 09/18/2016 to 2016. He was discharged to care home facility and was doing well there, discharged from the care home facility to home roughly a week ago. He states that he was feeling well physically, was doing great at time of discharge and feeling well after he got home. He slowly started getting worse, started coughing more and then started getting very weak to the point of falling down and not being able to stand up. He has got chronic lung disease and on chronic oxygen, between 2 and 4 L of oxygen 24 hours a day and he was told to go in to the emergency department for further evaluation. In the emergency department, he was found to be hypoxic and had new pneumonias on chest x-ray and so decision was made for admission for pneumonia. MEDICAL/SURGICAL HISTORY: Past medical history: The patient has chronic lung disease, COPD, and has recently seen Dr. Matute with an office visit on 10/09/2016 in pulmonology. He has also recently been seen by cardiology as of 10/15/2016, Elias Acosta MD, saw the patient with cardiology. He has had a recent spirometry, as well as cardiac evaluation. His past medical history also is notable for hypoxia, pneumonia, rib pain, neck pain, back pain, squamous cell carcinoma of the face, multiple family stresses with with cold intolerance, recurrent right inguinal hernia, shoulder pain, numbness, arthralgia, hypotension, abdominal pain, depression, hip pain, syncope , neuropathy, diabetes, aortic valve replacement on Coumadin for artificial aortic valve, hypoxia, back pain, dizziness, cardiomyopathy, hyperlipidemia, somnolence, obstructive sleep apnea, asbestosis, restrictive lung disease, shortness of breath, heart failure, chronic O2, bradycardia. Past surgical history: He has had a hernia repair 2015, a CABG redo in 2008, aortic valve replacement 2008, bowel resection related to embolus, cholecystectomy 2012, appendectomy 2004. MEDICATIONS: 1. Advair 250/50 one click b.i.d. 2. Atorvastatin 40 mg p.o. daily. 3. Coreg 3.125 mg p.o. daily. 4. Coumadin 2.5 mg p.o. daily. 5. Daliresp 500 mg p.o. daily. 6. Fluoxetine 10 mg daily. 7. Furosemide 20 mg p.o. a.m. 8. Gabapentin 300 mg 1-2 tablets t.i.d. p.r.n. nerve pain. 9. Latanoprost eyedrops 1 drop each eye at bedtime. 10. Lisinopril 5 mg p.o. daily. 11. Lotrisone cream apply as needed to groin b.i.d. as needed for fungal infection. 12. Magnesium 64 mg 1 p.o. b.i.d. 13. Jad Krill [id number] 300 mg p.o. daily. 14. Metformin 1000 mg p.o. b.i.d. 15. Mirapex 0.25 mg p.o. daily. 16. Multivitamin 2 p.o. daily for concentration of Coumadin. 17. Potassium 1 p.o. b.i.d. 18. ProAir 2 puffs q.4 hours p.r.n. shortness of breath. 19. Spiriva 18 mcg p.o. daily. 20. Tylenol 325 mg p.o. q.4 hours p.r.n. 21. Welchol 625 two p.o. t.i.d. p.r.n. for diarrhea. 22. Protonix 40 mg p.o. daily. ALLERGIES: 1. TO MEDICATIONS, NONE KNOWN. CODE STATUS: DO NOT RESUSCITATE/DO NOT INTUBATE. SOCIAL HISTORY: He has got a 90+ pack year smoking history, quit in 1980. He is retired [employer], and with 2 children and 2 grandchildren. Had some asbestos exposure in the [employer]. Currently he lives at home with his and they have lots of stress. She has incontinence issues, which messes up the house, he states, and he is not happily at this time, per patient. She lies to him and does not feel like things are going well at home. FAMILY HISTORY: Notable for father who of heart disease at age 66. Mom of a heart attack at unknown age. REVIEW OF SYSTEMS: He states he has got the shortness of breath, he has got weakness, he has got falls. He has got a cough. He denies significant leg swelling. He denies chest pain. He has a feeling of chills and feverish, though he has not taken his temperature. PHYSICAL EXAMINATION: GENERAL: He is an alert male who is talking in full sentences, no apparent distress. VITAL SIGNS: His temperature is 98.4, heart rate of 69, respirations 18, blood pressure 118/55, saturating 92% on 4 L. HEENT: Extraocular movements intact. Pupils equal, round, reactive to light. Oropharynx is with moist mucous membranes. No teeth. NECK: Supple without lymphadenopathy. LUNGS: Coarse breath sounds and crackles diffusely, nonfocal. HEART: Regular rate and rhythm, with a murmur and a click at the right upper sternal border. ABDOMEN: Soft. It is nontender, nondistended. EXTREMITIES: Trace edema bilaterally. GENITOURINARY: Deferred. RECTAL: Deferred. BREASTS: Deferred. LAB/IMAGING: Laboratories: BNP is 1490, D-dimer is 0.84. Previously he has had workup, which was negative for pulmonary embolus and he is currently on Coumadin with good control. ABG: PH of 7.46, pCO2 29.7, pO2 51.58. CBC: White count of 14.8, hematocrit of 41.0 and platelets of 241,000. Comprehensive metabolic panel: Glucose 139, BUN of 16, creatinine of 1.0, sodium 139, potassium 3.7, chloride of 107, carbon dioxide 23, magnesium 1.4, calcium 8.2, total protein 7.1. Albumin 2.5, bili 0.6, alk phos 64, AST of 27, ALT of 26. CPK 46, troponin I less than 0.05. Procalcitonin less than 0.5. INR 3.0. Lactic acid 1.7. Urinalysis is negative. Chest x-ray: Shows new right upper lobe and right lower lobe infiltrates, could represent interstitial edema, CHF versus pneumonia, extensive parenchymal scarring, CABG and valvuloplasty. EKG: Shows no acute process, no acute ischemia, normal sinus rhythm, heart rate of 81 and normal QT, some nonspecific ST-T wave changes. IMPRESSION: 1. This is an 86-year-old male with chronic lung disease, severe. 2. He has also got a history of heart disease and aortic valve replacement. He is on Coumadin chronically. 3. He was feeling dizzy, weak, probably to low oxygenation and likely is related to worse pneumonia. PLAN: We will treat with antibiotics IV. We will choose ampicillin, sulbactam and azithromycin. [facility] has been in the [facility] recently. He is not particularly toxic at this point and does not need an intensive care unit admission. He has also had some increase of possible fluid on his chest x-ray and a very elevated BNP. We will increase his Lasix from 20 mg to 40 mg a day and anticipate that patient will be at least a couple days in the hospital and possibly will need a recurrent visit to rehabilitation if he continues to have significant weakness. Unfortunately, this man is very high likelihood of having readmission to the hospital and/or any facility due to his severe lung disease and heart disease, and I have talked with him regarding issues of code status and a possibility that at some time his lungs may fail and he may need to consider options such as hospice in the future if things were to progressively get worse.
[2016-11-05 22:18] VITALS: BP 94/46
[2016-11-06] VITALS (7 sets, daily range): BP systolic 98–134; BP diastolic 45–67
--- NOTE | 2016-11-06 07:46 | Progress Note ---
Subjective General Patient is an 86 y.o. male with CAD, AVR and chronic lung dz who presented with worsening pneumonia. Recent admit 1 1/2 months ago and was doing much better after rehab for strengthening. Decline again over the last week. Now he is feeling around the same "maybe a little better but not much". Continues with SOB and cough. Physical Exam Vital Signs / I&Os Vital Signs Date Time Temp Pulse Resp B/P Pulse O2 O2 Flow FiO2 Ox Delivery Rate 11/06 0722 98.2 65 16 134/65 93 Nasal 3.5 Cannula 11/06 0503 3.5 11/06 0226 97.9 69 16 108/58 93 Nasal 3.5 Cannula 11/06 0220 Nasal 3.5 Cannula 11/06 0059 3.5 11/05 2218 97.5 66 94/46 92 11/05 2113 80 18 92/50 11/06 2011 93 11/06 2011 90 18 130/101 11/05 1922 3.5 11/05 1738 98.4 69 18 118/55 92 Nasal 4.0 Cannula 11/05 1718 2.0 11/05 1146 2.0 I&O 11/06 0000 11/05 1600 11/05 0800 Intake Total 120 Output Total 643 Balance -523 General Appearance Alert, Cooperative HEENT Normal exam Lungs decreased breath sounds and crackles Cardiovascular Regular rate and rhythm, has click right upper sternal border. Abdomen Soft, No tenderness Extremities No edema LAB Results Laboratory Tests 11/06 11/05 11/05 11/05 0540 1435 1405 1240 Chemistry Plasma Sodium (136 - 145 mmol/L) 144 Plasma Potassium (3.5 - 5.1 mmol/L) 3.8 Plasma Chloride (98 - 107 mmol/L) 108 CO2 (Enzymatic) (21 - 32 mmol/L) 24 BUN (7 - 18 mg/dL) 16 Creatinine (0.6 - 1.3 mg/dL) 1.2 Est GFR ( Amer) (mL/min) >60 Est GFR (Non-Af Amer) (mL/min) >60 Glucose (70 - 110 mg/dL) 136 Lactic Acid (0.4 - 2.0 mmol/L) 1.7 Plasma Calcium (8.5 - 10.1 mg/dL) 7.8 Procalcitonin (0 - 0.5 ng/mL) <0.5 Coagulation INR (0.8 - 1.2) 3.0 Hematology WBC (4.5 - 11.5 K/uL) 12.2 RBC (4.50 - 5.90 M/uL) 4.28 Hgb (13.5 - 17.5 gm/dL) 13.6 Hct (41.0 - 53.0 %) 40.5 MCV (80 - 100 fL) 95 MCH (26 - 34 pg) 32 RDW (11.6 - 14.8 %) 13.8 Neut % (Auto) (50 - 75 %) 78.8 Lymph % (Auto) (25 - 40 %) 11.5 [place] % (Auto) (3 - 14 %) 8.4 Eos % (Auto) (0 - 4 %) 1.1 Baso % (Auto) (0 - 2 %) 0.2 Plt Count, EDTA (150 - 400 K/uL) 200 PUBS MCHC (31 - 37 g/dL) 34 Urines Urine Color YELLOW Urine Appearance CLEAR Urine pH (5.0 - 8.0) 6.0 Ur Specific [place] (1.010 - 1.030) 1.010 Urine Protein (NEGATIVE) NEGATIVE Urine Ketones (NEGATIVE) NEGATIVE Urine Blood (NEGATIVE) NEGATIVE Urine Nitrite (NEGATIVE) NEGATIVE Urine Bilirubin (NEGATIVE) NEGATIVE Urine Urobilinogen (0.2 - 1.0 EU/dL) 0.2 Ur Leukocyte Esterase (NEGATIVE) NEGATIVE Urine RBC (0 - 1 rbc/hpf) NONE SEEN Urine WBC (0 - 1 wbc/hpf) RARE Ur Epithelial Cells (0 - 5 EPI/hpf) 0-1 Urine Bacteria (NONE SEEN) NONE SEEN Urine Glucose (NEGATIVE) NEGATIVE Urine Comment CULT NOT INDICATED 11/05 11/05 11/05 1240 1240 1225 Blood Gas Sample Site RR Total CO2 (24.0 - 30.0 mmol/L) 22.0 ABG pH (7.35 - 7.45) 7.46 ABG pCO2 at Pt Temp (35 - 45 mmHg) 29.7 ABG pO2 at Pt Temp (60.0 - 80.0 mmHg) 51.5 ABG HCO3 (20.0 - 26.0 mmol/L) 21.0 ABG O2 Sat Calc/Andrey (95.1 - 100.0 %) 89.5 ABG Base Excess (-6.0 - -6.0 mmol/L) -2.3 ABG Reduced Hgb (%) 10.3 ABG Carboxyhemoglobin (0.5 - 1.5 %) 2.1 ABG Methemoglobin (0.4 - 1.5 %) 0.0 Ross Test YES Other Total Hgb (14.0 - 18.0 g/dL) 14.0 A-a O2 Gradient (7.0 - 14.0 mmHg) 0.0 Hgb O2 Saturation (95.0 - 100.0 %) 87.6 Respiration Rate (/MIN) 20 O2 Liters/Min (0 - 20 L/MIN) 3 Vent Mode NC FiO2 (20 - 101 %) 0.32 Chemistry Plasma Sodium (136 - 145 mmol/L) 139 Plasma Potassium (3.5 - 5.1 mmol/L) 3.7 Plasma Chloride (98 - 107 mmol/L) 107 CO2 (Enzymatic) (21 - 32 mmol/L) 23 BUN (7 - 18 mg/dL) 16 Creatinine (0.6 - 1.3 mg/dL) 1.0 Est GFR ( Amer) (mL/min) >60 Est GFR (Non-Af Amer) (mL/min) >60 Glucose (70 - 110 mg/dL) 139 Plasma Calcium (8.5 - 10.1 mg/dL) 8.2 Plasma Magnesium (1.8 - 2.4 mg/dL) 1.4 Total Bilirubin (0.0 - 1.0 mg/dL) 0.6 AST (15 - 37 U/L) 27 ALT (12 - 78 U/L) 26 Alkaline Phosphatase (46 - 116 U/L) 64 Creatine Kinase (24 - 260 U/L) 46 Troponin (0.00 - 1.5 ng/mL) <0.05 B-Natriuretic Peptide (5 - 100 pg/ml) 1490 Total Protein (6.4 - 8.2 g/dL) 7.1 Albumin (3.3 - 5.0 g/dL) 2.5 Coagulation INR (0.8 - 1.2) 3.0 APTT (24 - 34 SECONDS) 43 D-Dimer, Quantitative (0.27 - 0.52 ug/mLFEU) 0.84 Hematology WBC (4.5 - 11.5 K/uL) 14.8 RBC (4.50 - 5.90 M/uL) 4.37 Hgb (13.5 - 17.5 gm/dL) 13.8 Hct (41.0 - 53.0 %) 41.0 MCV (80 - 100 fL) 94 MCH (26 - 34 pg) 32 RDW (11.6 - 14.8 %) 14.0 Neut % (Auto) (50 - 75 %) 85.6 Lymph % (Auto) (25 - 40 %) 7.5 [place] % (Auto) (3 - 14 %) 5.9 Eos % (Auto) (0 - 4 %) 0.8 Baso % (Auto) (0 - 2 %) 0.2 Plt Count, EDTA (150 - 400 K/uL) 241 PUBS MCHC (31 - 37 g/dL) 34 Microbiology Date/Time Procedure - Status Source Growth 11/05 1405 Blood Culture - RECD BLOOD 11/05 1355 Blood Culture - RECD BLOOD Assessment and Plan Problem List 1. Aortic valve replaced Plan On coumadin at goal. Continue to monitor INRs on abx. 2. CHF (congestive heart failure) Plan On increase of lasix. 3. Hypoxia Plan Chronic and on O2 NC 4. Pneumonia Plan On IV Abx and will continue at this time. 5. Diabetes Plan Hx of some elevation in past with blood sugars but generally great control.
[2016-11-07 02:21] VITALS: BP 115/66
[2016-11-07 06:49] VITALS: BP 136/62
--- NOTE | 2016-11-07 07:45 | Progress Note ---
Subjective General 86 y.o male who presented with pneumonia, leukocytosis, hypoxia,chf that has long hx of cad and AVR on coumadin. Has had recent cardiology eval and pulm eval. Has worsening breathing, sob and new infiltrates on cxr. Is on combo of meds and improving. States he is feeling a little better this am. Continues to have some elevation in WBC. Not really much better and still weak. Physical Exam Vital Signs / I&Os Vital Signs Date Time Temp Pulse Resp B/P Pulse O2 O2 Flow FiO2 Ox Delivery Rate 11/07 0649 97.9 71 19 136/62 95 Nasal 4.0 Cannula 11/07 0221 98.8 71 15 115/66 94 Nasal 4.0 Cannula 11/06 2310 4.0 11/06 2221 98.1 73 16 117/55 92 Nasal 4.0 Cannula 11/06 2030 Nasal Cannula 11/06 1924 4.0 11/06 1810 98.2 65 18 117/67 95 Nasal 4.0 Cannula 11/06 1729 67 11/06 1727 67 18 113/64 11/06 1559 4.0 11/06 1450 97.9 66 20 105/59 94 Nasal 1.0 Cannula 11/06 1248 3.0 11/06 1135 97.5 56 21 98/45 94 Nasal 3.5 Cannula 11/06 0845 Nasal 3.5 Cannula 11/06 0813 65 11/06 0744 3.5 I&O 11/07 0000 11/06 1600 11/06 0800 Intake Total 330 880 570 Output Total 562 650 690 Balance -232 230 -120 General Appearance Alert, Cooperative Lungs coarse BS with some crackles. Cardiovascular Regular rate and rhythm, has nora with click Abdomen Soft, No tenderness LAB Results Laboratory Tests 11/07 0530 Coagulation INR (0.8 - 1.2) 2.3 Assessment and Plan Problem List 1. Pneumonia Plan Patient is with pneumonia that seems to be improving slowly. Will start working on what is next step for d/c 2. CHF (congestive heart failure) Plan Hx of AVR and pulm htn; normal EF in past and not going to get a repeat echo as won't change my management at this time. Base on clinical. 3. Aortic valve replaced Plan Increase on coumadin and monitor INR 4. Hypoxia Plan Chronic O2 nc. stable. 5. Weakness Plan PT eval and see if needs more assist on d/c ? snf again if able.
[2016-11-07 11:58] VITALS: BP 111/46
[2016-11-07 13:52] VITALS: BP 99/45
[2016-11-07 17:13] VITALS: BP 111/59
[2016-11-07 22:55] VITALS: BP 115/54
[2016-11-08 02:43] VITALS: BP 109/49
[2016-11-08 07:14] VITALS: BP 146/63
[2016-11-08 10:30] VITALS: BP 117/67
--- NOTE | 2016-11-08 11:05 | Progress Note ---
Subjective General He feels stronger with decreased SOB. No chest pain or palpitations. No nausea , vomitting, diarrhea, constipation. No abd pain. Physical Exam Vital Signs / I&Os Vital Signs Date Time Temp Pulse Resp B/P Pulse O2 O2 Flow FiO2 Ox Delivery Rate 11/08 1030 36.7 57 21 117/67 100 Nasal 5.0 Cannula 11/08 0931 Nasal 4.5 Cannula 11/08 0924 66 11/08 0719 4.5 11/08 0714 36.7 60 18 146/63 96 Nasal 4.5 Cannula 11/08 0243 36.6 62 16 109/49 96 Nasal 4.0 Cannula 11/08 0200 Nasal 4.0 Cannula 11/07 2305 2.0 11/07 2255 36.8 76 16 115/54 88 Nasal 2.0 Cannula 11/07 1930 4.0 11/07 1718 65 11/07 1713 36.6 65 16 111/59 92 Nasal 4.0 Cannula 11/07 1633 4.0 11/07 1630 Nasal 4.0 Cannula 11/07 1352 36.4 63 20 99/45 92 Nasal 4.0 Cannula 11/07 1210 4.0 11/07 1158 36.5 65 20 111/46 99 Nasal 4.0 Cannula I&O 11/08 0000 11/07 1600 11/07 0800 Intake Total 240 926 776 Output Total 683 890 587 Balance -443 36 189 General Appearance Alert, Cooperative, No acute distress Lungs Crackles in bilateral lower [place]. Cardiovascular Regular rate and rhythm, Normal S1 and S2, 2/6 systolic and diastolic murmur increased at the base. Abdomen Normal bowel sounds, Soft, No tenderness Extremities No edema Assessment and Plan Problem List 1. CHF (congestive heart failure) Plan On increased diuretic. If crackles not improved tomorrow, will increase furosemide. 2. Pneumonia Plan On abx. 3. COPD mixed type Plan On steroids and nebulizers. 4. Hypoxia Plan On oxygen. 5. Diabetes Plan Diet controlled. 6. Hypomagnesemia Plan Replacing. 7. Aortic valve replaced Plan On coumadin.
[2016-11-08 14:35] VITALS: BP 128/65
[2016-11-08 18:38] VITALS: BP 116/61
[2016-11-08 22:44] VITALS: BP 95/54
[2016-11-09 02:24] VITALS: BP 138/66
[2016-11-09 06:38] VITALS: BP 139/74
--- NOTE | 2016-11-09 09:59 | Progress Note ---
Subjective General Patient feels improving today. SOB, cough, and sputum production improving. No abd pain, nausea, vomitting, constipation, diarrhea. Physical Exam Vital Signs / I&Os Vital Signs Date Time Temp Pulse Resp B/P Pulse O2 O2 Flow FiO2 Ox Delivery Rate 11/09 0925 Nasal 2.0 Cannula 11/09 0916 68 11/09 0857 91 2.0 11/09 0801 5.0 11/09 0638 36.3 74 19 139/74 94 Nasal 4.5 Cannula 11/09 0224 36.7 57 18 138/66 95 Nasal 5.0 Cannula 11/09 0035 4.0 11/08 2244 36.4 61 18 95/54 94 Nasal 4.0 Cannula 11/08 2200 Nasal 4.0 Cannula 11/08 1905 5.0 11/08 1838 36.5 65 18 116/61 95 Nasal 5.0 Cannula 11/08 1802 62 11/08 1548 5.0 11/08 1435 36.7 60 18 128/65 95 Nasal 5.0 Cannula 11/08 1119 5.0 11/08 1030 36.7 57 21 117/67 100 Nasal 5.0 Cannula I&O 11/09 0000 11/08 1600 11/08 0800 Intake Total 540 240 540 Output Total 910 296 162 Balance -370 -56 378 General Appearance Alert, Cooperative, No acute distress Lungs Improving air movement, crackles in bilateral bases improved. Cardiovascular Regular rate and rhythm, Normal S1 and S2, 2/6 systolic murmur increased at base. Abdomen Normal bowel sounds, Soft, No tenderness Extremities No edema Assessment and Plan Problem List 1. Pneumonia Plan Improving on antibiotics. 2. COPD mixed type Plan Improving. 3. CHF (congestive heart failure) Plan Further diuresis today. 4. Hypomagnesemia Plan Replacing. 5. Aortic valve replaced Plan Taking coumadin.
[2016-11-09 10:40] VITALS: BP 120/60
[2016-11-09 14:29] VITALS: BP 112/56
[2016-11-09 19:04] VITALS: BP 122/54
[2016-11-09 23:04] VITALS: BP 121/62
[2016-11-10 03:27] VITALS: BP 122/58
[2016-11-10 06:21] VITALS: BP 124/60
--- NOTE | 2016-11-10 07:35 | Progress Note ---
Subjective General 86 y.o male who presents with weakness, pneumonia with baseline copd, chf, hypoxia, AVR, coumadin. He states that he feels weak but is slowly improving. Not sure if he feels well enough to go home today. Has been with no cp. chronically sob on O2. Physical Exam Vital Signs / I&Os Vital Signs Date Time Temp Pulse Resp B/P Pulse O2 O2 Flow FiO2 Ox Delivery Rate 11/10 0621 98.1 59 20 124/60 96 Nasal 5.0 Cannula 11/10 0327 98.4 61 16 122/58 96 Nasal 5.0 Cannula 11/09 2304 98.4 62 20 121/62 92 Nasal 5.0 Cannula 11/09 1950 Nasal 5.0 Cannula 11/09 1933 5.0 11/09 1904 97.9 64 20 122/54 91 Nasal 5.0 Cannula 11/09 1811 62 11/09 1533 5.0 11/09 1429 98.1 59 20 112/56 95 Nasal 5.0 Cannula 11/09 1232 5.0 11/09 1040 97.9 61 20 120/60 91 Nasal 2.0 Cannula 11/09 0925 Nasal 2.0 Cannula 11/09 0916 68 11/09 0857 91 2.0 11/09 0801 5.0 I&O 11/10 0000 11/09 1600 11/09 0800 Intake Total 500 1110 435 Output Total 701 1269 121 Balance -201 -159 314 General Appearance Alert, Cooperative HEENT very hard of hearing Lungs coarse BS with crackles, no much rhonchi this am. Cardiovascular Normal exam (RRR with click) Extremities No edema LAB Results Laboratory Tests 11/10 11/09 0515 1010 Chemistry Plasma Magnesium (1.8 - 2.4 mg/dL) 1.8 Coagulation INR (0.8 - 1.2) 3.0 3.3 Hematology WBC (4.5 - 11.5 K/uL) 9.3 RBC (4.50 - 5.90 M/uL) 4.24 Hgb (13.5 - 17.5 gm/dL) 13.1 Hct (41.0 - 53.0 %) 40.0 MCV (80 - 100 fL) 94 MCH (26 - 34 pg) 31 RDW (11.6 - 14.8 %) 13.2 Neut % (Auto) (50 - 75 %) 68.7 Lymph % (Auto) (25 - 40 %) 18.5 [place] % (Auto) (3 - 14 %) 7.8 Eos % (Auto) (0 - 4 %) 4.8 Baso % (Auto) (0 - 2 %) 0.2 Plt Count, EDTA (150 - 400 K/uL) 223 PUBS MCHC (31 - 37 g/dL) 33 Assessment and Plan Problem List 1. Aortic valve replaced Plan Patient is here for follow up. Has been on coumadin INR at goal. 2. CHF (congestive heart failure) Plan Has CHF that is stable. 3. Hypoxia Plan chronic on O2; is using more O2 this am 5L. 4. Pneumonia Plan Is being treated with abx. Is likely going to get d/c home later today or tomorrow oral abx on d/c
[2016-11-10 10:10] VITALS: BP 116/55
[2016-11-10 14:32] VITALS: BP 113/48
[2016-11-10 18:00] VITALS: BP 117/52
[2016-11-10 22:35] VITALS: BP 133/50
[2016-11-11 03:53] VITALS: BP 128/66
--- NOTE | 2016-11-11 06:24 | DIAGNOSTIC IMAGING REPORT ---
PROCEDURE: XR CHEST 1 VIEW INDICATION: f/u pneumonia TECHNIQUE: Portable AP view 05:26 a.m. COMPARISON: Chest x-ray 11/05/2016 FINDINGS: Extensive bilateral coarse interstitial markings, most prominent in the right upper lobe and left lung base with increased left basilar parenchymal density suspicious for superimposed pneumonia. Bullous changes in the left upper lobe. Median sternotomy, valvuloplasty and CABG. Heart size is normal. Pulmonary vascularity is unchanged. No suspicious osseous lesions. IMPRESSION: 1. Extensive bilateral pulmonary fibrosis with increasing left basilar parenchymal changes suggestive of superimposed pneumonia 2. CABG and valvuloplasty
[2016-11-11 06:57] VITALS: BP 174/57
--- NOTE | 2016-11-11 07:27 | Progress Note ---
Subjective General 86 y.o male that is with issues of pneumonia recurrent wtih severe lung dz. Has hx of copd severe baseline and also HTN, chf,hypoxia, AVR on coumadin. Patient states he wants go home from the hospital. Is going to try doing the stairs today. Has also been feeling better overall. No increase in CP, sob. Physical Exam Vital Signs / I&Os Vital Signs Date Time Temp Pulse Resp B/P Pulse O2 O2 Flow FiO2 Ox Delivery Rate 11/11 0657 97.9 61 20 174/57 95 Nasal 4.0 Cannula 05/ 0353 98.2 65 20 128/66 93 Nasal 4.0 Cannula 11/11 0114 4.0 05/ 2235 98.1 62 22 133/50 90 Nasal 4.0 Cannula / 1930 5.0 05/ 1800 97.5 61 20 117/52 93 Nasal 4.0 Cannula / 1728 66 05/01 1629 Nasal 4.0 Cannula 11/10 1611 5.0 05/ 1432 97.7 66 21 113/48 94 Nasal 4.0 Cannula / 1150 5.0 05/ 1010 98.2 58 21 116/55 96 Nasal 5.0 Cannula / 0901 59 05/01 0900 5.0 05/01 0730 5.0 I&O / 0000 05/01 1600 05/01 0800 Intake Total 240 600 650 Output Total 595 859 436 Balance -355 -259 214 General Appearance Alert, Cooperative Lungs Normal air movement, coarse BS no longer wheezes and rhonchi Cardiovascular Regular rate and rhythm, click at avr Abdomen Soft, No tenderness Extremities No edema Imaging CXR this am: IMPRESSION: 1. Extensive bilateral pulmonary fibrosis with increasing left basilar parenchymal changes suggestive of superimposed pneumonia 2. CABG and valvuloplasty Assessment and Plan Problem List 1. Pneumonia Plan Feels he is doing better, clinically he sounds better, CXR that shows extensive fibrosis and ? pneumonia still. Continue PO abx x 7 more days. 2. COPD mixed type Plan Has copd that is chronic and nearing end stage. 3. Hypoxia Plan Chronic and weaning him down a little now on 4 L O2. 4. CHF (congestive heart failure) Plan Has been stable and I will have patient follow up with cardiology and they can consider next echo time frame. 5. Aortic valve replaced Plan Continue on coumadin but consider change to Factor Xa inhibitor still 6. Weakness Plan Working with PT on stairs today as has a flight when he goes home. Will need further PT at home as well set up from d/c from SNF recently.
[2016-11-11] MEDS ORDERED: AMOXICILLIN/CL875 MG PO (07:31)
--- NOTE | 2016-11-11 07:34 | Provider's Discharge Care Plan ---
Problem, Goal, Plan Problem List 1. Pneumonia Instructions: Take meds as directed 2. COPD mixed type Instructions: Take meds as directed 3. Weakness Instructions: PT/OT 4. CHF (congestive heart failure) Instructions: f/u pulm, cardiology as out patient as per prior 5. Aortic valve replaced Instructions: continue on coumadin, f/u INR or Thursday
--- NOTE | 2016-11-11 08:14 | DISCHARGE SUMMARY ---
ADMIT DATE: 11/05/2016 DISCHARGE DATE: 11/11/2016 ADMITTING DIAGNOSES: 1. Pneumonia. 2. Weakness. 3. Cough. 4. Congestive heart failure. 5. Dizziness. 6. History of aortic valve replacement and Coumadin therapy. DISCHARGE DIAGNOSES: 1. Pneumonia. 2. Weakness. 3. Cough. 4. Congestive heart failure. 5. Dizziness. 6. History of aortic valve replacement and Coumadin therapy. BRIEF HISTORY: Please refer to admit dictation for details. HOSPITAL COURSE: This is an 86-year-old male who presented to the hospital with shortness of breath. He had had a recent hospitalization roughly a month prior to admission, was also in the [place] [facility] for nearly a month, then home for a week. After a week at home of feeling well, he started feeling really poor with shortness of breath and was readmitted to the hospital with what appears to be a new pneumonia on chest x- ray. He had a very elevated BNP, was given a little higher dose of Lasix and then also treated with his inhalers and antibiotics. He improved over the next few days and at the time of discharge, he was feeling better. He was able to get around pretty well with the physical therapist at discharge. DISCHARGE INSTRUCTIONS/MEDICATIONS: Disposition: Discharged to home. Follow up with me in 1 week, INR checked later on this week, resume his home medications as well as Augmentin 875 mg p.o. b.i.d. His discharge medications include: 1. Epinephrine 0.3 mg injection p.r.n. allergic reaction. 2. Diclofenac gel 2 g t.i.d. p.r.n. pain. 3. Mirapex 0.125 mg p.o. at bedtime. 4. Gabapentin 100-300 mg p.o. t.i.d. p.r.n. pain. 5. Welchol 625 mg 2 tablets p.o. t.i.d. 6. Metformin 1000 mg p.o. b.i.d. 7. Tiotropium 18 mcg inhalation daily. 8. Latanoprost eyedrops 0.005 solution 1 drop in his eye at bedtime. 9. Potassium chloride 10 mEq p.o. b.i.d. 10. Acetaminophen 325 mg p.o. q.4 hours p.r.n. pain. 11. Carvedilol 3.125 mg p.o. b.i.d. 12. Furosemide 40 mg p.o. q.a.m. 13. Atorvastatin 40 mg p.o. daily. 14. Magnesium 65 mg p.o. b.i.d. 15. Gabapentin 300 mg p.o. t.i.d. 16. Lisinopril 5 mg q.a.m. 17. Fluoxetine 10 mg p.o. a.m. 18. Fluticasone salmeterol 250/50 one puff b.i.d. 19. Daliresp 500 mcg p.o. daily. 20. Pantoprazole 40 mg p.o. daily. 21. Hydrocodone 5/325 one to 2 p.o. q.4 hours p.r.n. pain. 22. Warfarin 3 mg p.o. daily. 23. The patient to follow up with me in 1 week.
[2016-11-11 09:11] VITALS: BP 109/49
[2016-11-11 10:06] VITALS: BP 106/54
== END 2016-11-11 10:36 | disposition home health service (06) | DRG 190 ==
LOC: ED SRH 11:42 → TRANS SRH 14:55 → ACUTE2 SRH 15:43
PROVIDERS: ADMIT Family Medicine
DX: J44.0 Chronic obstructive pulmonary disease with (acute) lower respiratory infection (principal); J15.9 Unspecified bacterial pneumonia; R09.02 Hypoxemia; E83.42 Hypomagnesemia; I11.0 Hypertensive heart disease with heart failure; I50.9 Heart failure, unspecified; E11.42 Type 2 diabetes mellitus with diabetic polyneuropathy; Z79.84 Long term (current) use of oral hypoglycemic drugs; J61 Pneumoconiosis due to asbestos and other mineral fibers; I25.10 Atherosclerotic heart disease of native coronary artery without angina pectoris; Z95.1 Presence of aortocoronary bypass graft; Z95.2 Presence of prosthetic heart valve; Z79.01 Long term (current) use of anticoagulants; Z87.891 Personal history of nicotine dependence
CPT/HCPCS: 85241; 85244; 90004; 90047; 90065; 90074; 90098; 90100; 90616; 91286; 91320; 91556; 92031; 92610; 92720; 93004; 94001; 94060; 95059